=== PATIENT | female | born 1935 | race Caucasian/White ===

== ENCOUNTER 2016-10-26 15:48 | Inpatient (IN) | payer MEDICARE ==
[~2016-10-26] VITALS: Ht 152.4 cm; Wt 52.3 kg
[~2016-10-26 15:48] MED LIST: AMIO200T2 PO; ATEN-57 PO; CAPT50TA2 PO; DICY20TA3 PO; FENT1PAT17 TP; FURO40TA4 PO; ISOS30TA4 PO; LIPA1CAP2 PO; LISI-334 PO; MEPE50TA2 PO; MESA1.2T PO; NIFE20CA PO; NITR0.4T SL; NITR100C62 PO; ONDA4TAB10 PO; OXYC-323 PO; OXYC-328 PO; POTA10TA12 PO; RIVA10TA PO; ROPI0.5T PO; VALIUM10 MG PO; creon PO
--- NOTE | 2016-10-26 16:09 | EKG ---
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
--- NOTE | 2016-10-26 16:11 | PHYS DOC ---
Past Medical History Past Medical History: CAD, Heart Disease, UT, Other Past Surgical History: Cholecystectomy, Hysterectomy, Knee Replacement, Lumbar Laminectomy, Tonsillectomy, Other Additional Past Surgical Histo: HEMORRHOIDECTOMY,SHOULDER,HERNIA, CARDIAC STENTS Alcohol Use: None Drug Use: None Adult General Chief Complaint Chief Complaint: CHEST PAIN HPI HPI Patient is a pleasant 81-year-old female with a history of heart disease prior UT in 2014 with prior stenting history of hypertension hyperlipidemia who presents with chest pain that began about 2 hours prior to arrival. Patient has a history from was described of angina it is episodic in nature primarily in the center of her chest with radiation to the right and left breast to the right and left shoulders bilaterally. It does not make her short of breath but it makes her anxious. She does describe no nausea no vomiting, diarrhea, cough, chills, or URI symptoms. She does say that the pain is better with sublingual nitroglycerin which he took 2 of today to help with her symptoms. There is nothing new about these symptoms other than the fact that is more severe and longer lasting than normal. While at the MRI machine today getting her hip evaluated patient began having another episode. Although she is on oral oxycodone and fentanyl via patch patient is still having 7 of 10 pain although at presentation she seems very sedated with slurred speech secondary to narcotic interventions. Differential diagnosis for chest pain: Pericarditis, myocarditis, endocarditis, pneumothorax, pneumonia, aortic dissection, esophageal spasm, esophagitis, peptic ulcer disease, acute coronary syndrome, mediastinitis, Boerhaave syndrome , musculoskeletal chest wall pain, costochondritis, intercostal strain, rib fracture, pulmonary contusion, pneumonitis, pleural effusion, pericardial effusion, pericardial tamponode, and pleurisy. Considered upon arrival at this point it is likely unstable angina given symptoms occurring at rest and not changed in frequency and duration. Patient EKG, chest x-ray, d-dimer, cardiac enzymes, CBC, CMP, IV fluids, aspirins were given my EMS in route nitrates also given by patient or to arrival. Care physician is Dr. RASHAWN Pool Incidentally patient also had large lesion on her right hip that is concerning is variegated large one to 2 cm with erythema around it but is discolored variegated appearance been present for months. Review of Systems Review of Systems Constitutional: Denies fever or chills [] Eyes: Denies change in visual acuity, redness, or eye pain [] HENT: Denies nasal congestion or sore throat [] Respiratory: Denies cough or shortness of breath [] Cardiovascular: No additional information not addressed in HPI [] GI: Denies abdominal pain, nausea, vomiting, bloody stools or diarrhea [] : Denies dysuria or hematuria [] Musculoskeletal: Denies back pain or joint pain [] Integument: No large lesion black in nature over the right hip. Neurologic: Denies headache, she does complain of generalized weakness Endocrine: Denies polyuria or polydipsia [] Current Medications Current Medications Current Medications Medications (Trade) Dose Ordered Sig/Cha Start Time Stop Time Status Last Admin Dose Admin Fentanyl Citrate (Fentanyl 2ml Vial) 50 mcg PRN Q2HR PRN 10/26/16 16:45 10/27/16 16:44 Nitroglycerin (Nitrostat) 0.4 mg PRN Q5MIN PRN 10/26/16 16:45 10/27/16 16:44 Nitroglycerin/ Dextrose 250 ml @ 3 mls/hr 1X ONCE 10/26/16 16:15 10/30/16 03:34 Ondansetron HCl (Zofran) 4 mg PRN Q8HRS PRN 10/26/16 16:45 10/27/16 16:44 Sodium Chloride 1,000 ml @ 100 mls/hr Q10H 10/26/16 16:43 10/27/16 16:42 Sodium Chloride (Normal Saline Flush) 10 ml QSHIFT PRN 10/26/16 16:15 Allergies Allergies Allergies Coded Allergies Type Severity Reaction Last Updated Verified diphenhydramine Allergy Severe Shortness of Air 10/26/15 Yes NSAIDS (Non-Steroidal Anti-Inflamma Allergy Intermediate All except Feldene 05/31/14 Yes Pentazocine Lactate Allergy Intermediate Blood pressure increase, chest pain, heart races, itching. 05/31/14 Yes Trimethobenzamide HCl Allergy Intermediate Severe muscle spasms 05/31/14 Yes acetaminophen Allergy Intermediate Shallow breathing, slow heart rate, stomach pain 05/31/14 Yes adhesive Allergy Intermediate rash--"will explain." 05/31/14 Yes butorphanol tartrate Allergy Intermediate Hallucinations, PALOMARES, anxiety, rash 05/31/14 Yes carisoprodol Allergy Intermediate Fainting, fast heart rate, light-headed Yes chlorzoxazone Allergy Intermediate Nausea, dizzy, rash, feels like I might pass out 05/31/14 Yes codeine Allergy Intermediate Shallow breathing, vomiting, severe PALOMARES, bradycardia, itching 05/31/14 Yes codeine phosphate Allergy Intermediate Shallow breathing, slow heart rate, stomach pain 05/31/14 Yes cyclobenzaprine HCl Allergy Intermediate Chest pain,PALOMARES, fast heart rate, nervous 05/31/14 Yes erythromycin base Allergy Intermediate Fainting, fast/irreg HR, rash, itiching 05/31/14 Yes hydromorphone HCl Allergy Intermediate Apneic 05/31/14 Yes iodine Allergy Intermediate Itching, skin rash, hives 05/31/14 Yes ketorolac tromethamine Allergy Intermediate Chest pain, sudden severe PALOMARES Yes levofloxacin Allergy Intermediate Severe dizziness, heart races, itching, stomach pain 05/31/14 Yes midazolam HCl Allergy Intermediate Slow heart rate, affects bld pressure, mild rash 05/31/14 Yes morphine Allergy Intermediate apneic 05/31/14 Yes nalbuphine HCl Allergy Intermediate Tachycardia, confusion, hallucinations, nervous 05/31/14 Yes I S O L A T I O N *CONTACT* Allergy Unknown 05/03/16 Yes Physical Exam Physical Exam Constitutional: Patient mildly cachectic although well-developed there is some muscle wasting noted. Patient has poor dentition dry mucous membranes and is slurring her speech likely secondary to narcotics are on board. HENT: Normocephalic, atraumatic, bilateral external ears normal, dry mucous membranes Eyes: PERRLA, EOMI, conjunctiva normal, no discharge. [] Neck: Normal range of motion, no tenderness, supple, no stridor. [] Cardiovascular:Heart rate regular rhythm, no murmur [] Lungs & Thorax: Bilateral breath sounds clear to auscultation [] Abdomen: Bowel sounds normal, soft, no tenderness, no masses, no pulsatile masses. [] Skin: As enlarged 1-2 cm enlarged dark irrigated brownish-black lesions that have mild erythema and induration surrounding them Back: No tenderness, no CVA tenderness. [] Extremities: No tenderness, no cyanosis, no clubbing, ROM intact, no edema. [] Neurologic: Alert and oriented X 3, normal motor function, normal sensory function, no focal deficits noted. [] Psychologic: Affect normal, judgement normal, mood normal. [] Current Patient Data Vital Signs Vital Signs Date Time Temp Pulse Resp B/P (MAP) Pulse Ox O2 Delivery O2 Flow Rate FiO2 10/26/16 15:55 97.5 55 18 108/44 (65) 98 Nasal Cannula 2.0 97.5 Lab Values Laboratory Tests Test 10/26/16 16:25 10/26/16 16:34 10/26/16 17:35 White Blood Count 5.9 x10^3/uL (4.0-11.0) Red Blood Count 4.18 x10^6/uL (3.50-5.40) Hemoglobin 13.1 g/dL (12.0-15.5) Hematocrit 39.7 % (36.0-47.0) Mean Corpuscular Volume 95 fL (79-100) Mean Corpuscular Hemoglobin 31 pg (25-35) Mean Corpuscular Hemoglobin Concent 33 g/dL (31-37) Red Cell Distribution Width 14.5 % (11.5-14.5) Platelet Count 145 x10^3/uL (140-400) Neutrophils (%) (Auto) 65 % (31-73) Lymphocytes (%) (Auto) 20 % (24-48) L Monocytes (%) (Auto) 12 % (0-9) H Eosinophils (%) (Auto) 3 % (0-3) Basophils (%) (Auto) 1 % (0-3) Neutrophils # (Auto) 3.9 x10^3uL (1.8-7.7) Lymphocytes # (Auto) 1.2 x10^3/uL (1.0-4.8) Monocytes # (Auto) 0.7 x10^3/uL (0.0-1.1) Eosinophils # (Auto) 0.1 x10^3/uL (0.0-0.7) Basophils # (Auto) 0.0 x10^3/uL (0.0-0.2) Sodium Level 139 mmol/L (136-145) Potassium Level 4.7 mmol/L (3.5-5.1) Chloride Level 103 mmol/L (98-107) Carbon Dioxide Level 19 mmol/L (21-32) L Anion Gap 17 (6-14) H Blood Urea Nitrogen 163 mg/dL (7-20) H Creatinine 4.8 mg/dL (0.6-1.0) H Estimated GFR (Cockcroft-Gault) 8.8 Glucose Level 94 mg/dL (70-99) Calcium Level 9.1 mg/dL (8.5-10.1) Magnesium Level 2.1 mg/dL (1.8-2.4) Total Bilirubin 0.4 mg/dL (0.2-1.0) Direct Bilirubin 0.1 mg/dL (0.0-0.2) Aspartate Amino Transferase (AST) 25 U/L (15-37) Alanine Aminotransferase (ALT) 29 U/L (14-59) Alkaline Phosphatase 157 U/L (46-116) H Creatine Kinase 49 U/L (26-192) Creatine Kinase MB (Mass) 2.2 ng/mL (0.0-3.6) Creatine Kinase MB Relative Index % (0-4) Troponin I Quantitative < 0.017 ng/mL (0.000-0.055) HQ-Qaz-T-Type Natriuretic Peptide 1252 pg/mL (0-449) H Total Protein 6.9 g/dL (6.4-8.2) Albumin 3.2 g/dL (3.4-5.0) L Lipase 599 U/L (73-393) H POC Troponin I 0.01 ng/ml (<0.08) Urine Collection Type Unknown Urine Color Yellow Urine Clarity Clear Urine pH 5.0 Urine Specific [place] 1.015 Urine Protein Negative mg/dL (NEG-TRACE) Urine Glucose (UA) Negative mg/dL (NEG) Urine Ketones (Stick) Negative mg/dL (NEG) Urine Blood Negative (NEG) Urine Nitrite Negative (NEG) Urine Bilirubin Negative (NEG) Urine Urobilinogen Dipstick 0.2 mg/dL (0.2 mg/dL) Urine Leukocyte Esterase Small (NEG) Urine RBC 1-2 /HPF (0-2) Urine WBC 11-20 /HPF (0-4) Urine Squamous Epithelial Cells Few /LPF Urine Bacteria Few /HPF (0-FEW) Urine Hyaline Casts Occasional /HPF Laboratory Tests 10/26/16 16:25 Laboratory Tests 10/26/16 16:25 EKG EKG [] KG timed 1553 10/26/2016 patient's EKG demonstrated heart rate of 55 sinus bradycardia there is marked movement artifact secondary to find motor and patient the patient has a Q-wave in the inferior leads in V1 and V2 which is not new and old there is also a left ventricular bundle branch block with intraventricular conduction delay noted on old EKGs there is left axis deviation as well. There are no new changes to this EKG. Radiology/Procedures Radiology/Procedures [] [facility] [address] [place] [address] IMAGING REPORT Signed PATIENT: DARIUS SALINAS ACCOUNT: [id number] : 1935 LOCATION: [address] [place] [address] AGE: 80 SEX: F EXAM STATUS: ADM IN ORD. PHYSICIAN: AUSTIN SILVERMAN MD REASON: CHF PROCEDURE: ECHOCARDIOGRAM APPROVED REPORT EXAM: Two-dimensional and M-mode echocardiogram with Doppler and color Doppler. Other Information Quality : Good INDICATION Congestive Heart Failure 2D DIMENSIONS RVDd 2.8 (2.9-3.5cm) Left Atrium(2D) 3.0 (1.6-4.0cm) IVSd 1.0 (0.7-1.1cm) Aortic Root(2D) 1.9 (2.0-3.7cm) LVDd 3.5 (3.9-5.9cm) LVOT Diameter 1.9 (1.8-2.4cm) PWd 0.9 (0.7-1.1cm) LVDs 2.2 (2.5-4.0cm) FS (%) 30.0 % SV 33.3 ml LVEF(%) 60.0 (>50%) Aortic Valve AoV Peak Jose Guadalupe. 155.2cm/s AoV VTI 37.9cm AO Peak GR. 9.6mmHg LVOT Peak Jose Guadalupe. 123.9cm/s AO Mean GR. 5mmHg GOLDY (VMAX) 2.34cm2 GOLDY (VTI) 2.50cm2 AI P 1/2 Time 376ms Mitral Valve MV E Velocity 108.5cm/s MV DECEL TIME 124ms MV A Velocity 95.5cm/s E/A Ratio 1.1 Tricuspid Valve TR P. Velocity 356cm/s RAP ESTIMATE 10mmHg TR Peak Gr. 51mmHg RVSP 61mmHg Pulmonary Vein S1 Velocity 57.6cm/s D2 Velocity 44.7cm/s PVa duration 145msec LEFT VENTRICLE The left ventricle is mildly dilated There is mild concentric left ventricular hypertrophy The left ventricular systolic function is normal and the ejection fraction is within normal range. The Ejection Fraction is 60%. There is mild hypokinesis in the apical inferior wall. Transmitral Doppler flow pattern is Grade II-pseudonormal filling dynamics. Left ventricular diastolic dysfunction RIGHT VENTRICLE The right ventricle is normal size. Mild right ventricular hypertrophy The right ventricular systolic function is normal. ATRIA The left atrium size is dilated The right atrium size is dilated The interatrial septum is intact with no evidence for an atrial septal defect or patent foramen ovale as noted on 2-D or Doppler imaging. AORTIC VALVE The aortic valve is calcified but opens well. Doppler and Color Flow revealed moderate to severe aortic regurgitation. There is no significant aortic valvular stenosis. MITRAL VALVE The mitral valve is normal in structure There is no evidence of mitral valve prolapse. There is no mitral valve stenosis. Doppler and Color-flow revealed mild to moderate mitral regurgitation. TRICUSPID VALVE The tricuspid valve is normal in structure and function. Doppler and Color Flow revealed moderate tricuspid regurgitation. There is moderate to severe pulmonary hypertension. The PA pressure was estimated at 61 mmHg. There is no tricuspid valve stenosis. PULMONIC VALVE The pulmonary valve is normal in structure Doppler and Color Flow revealed mild pulmonic valvular regurgitation. There is no pulmonic valvular stenosis. GREAT VESSELS The aortic root is normal in size. The ascending aorta is normal in size. The IVC is normal in size and collapses >50% with inspiration. PERICARDIAL EFFUSION There is no evidence of significant pericardial effusion. Critical Notification Critical Value: No <Conclusion> The left ventricular systolic function is normal and the ejection fraction is within normal range. The Ejection Fraction is 60%. Transmitral Doppler flow pattern is Grade II-pseudonormal filling dynamics. Left ventricular diastolic dysfunction Mild right ventricular hypertrophy The left atrium size is dilated The right atrium size is dilated Doppler and Color Flow revealed moderate to severe aortic regurgitation. The aortic valve is calcified but opens well. Doppler and Color-flow revealed mild to moderate mitral regurgitation. Doppler and Color Flow revealed moderate tricuspid regurgitation. There is moderate to severe pulmonary hypertension. The PA pressure was estimated at 61 mmHg. Doppler and Color Flow revealed mild pulmonic valvular regurgitation. There is no evidence of significant pericardial effusion. DICTATED and SIGNED BY: AUSTIN SILVERMAN MD DATE: 05/05/16 1426 CC: MILDRED MALHOTRA MD; AUSTIN SILVERMAN MD ~ Course & Med Decision Making Course & Med Decision Making Pertinent Labs and Imaging studies reviewed. (See chart for details) Initial presentation Differential diagnosis for chest pain: Pericarditis, myocarditis, endocarditis, pneumothorax, pneumonia, aortic dissection, esophageal spasm, esophagitis, peptic ulcer disease, acute coronary syndrome, mediastinitis, Boerhaave syndrome, musculoskeletal chest wall pain, costochondritis, intercostal strain, rib fracture, pulmonary contusion, pneumonitis, pleural effusion, pericardial effusion, pericardial tamponode, and pleurisy Disposition also demonstrated a small lesion on her right hip which is very concerning for melanoma. Boat Engine Mechanic note: Internal medicine Boat Engine Mechanic called at of the service 4:30 PM Consult called back at o435 p.m. Discussed the case I presented and they agreed with admission. Time of acceptance for 435 PM ask for inpatient admission cardiology evaluation and consultation. Patient's pain is intermittent and comes and goes patient is mildly hypertensive during her evaluation here in the emergency department although she has fentanyl on which is likely causing her hypotension the nitrates may be doing so. Given her continued discomfort she's been bitten to the hospital under the impression that she has angina. This is chronic for her not a new nature but given her symptoms I wanted to make sure that cardiology was aware of her presence. Also on her findings were a elevated BUN/creatinine a significant value of 4.8 this time I have no old findings to compare this to but I worried that this on top her chest pain is concerning. It is also noted that her pancreas may be inflamed and irritated from some unknown reason perhaps hyperlipidemia, as her lipase is 599 today which would also explain why she has abdominal pain when is in not responsive to nitrates as normal. Her troponin initially on arrival was 0.01 and measured 0.017 which both within normal limits. I believe that an ultrasound of her abdomen would be appropriate to rule out other sources of abdominal catastrophe causing pancreatic tightness like cholelithiasis or cholecystitis. Her LFTs are not elevated white count. I concern also would be possible alcohol consumption although there is no history of acid of alcoholism With a course this patient's evaluation she was comfortable and resting quietly mildly hypotensive responsive to fluids. Denies still concerned that possibly fluid retention with elevated pancreatic enzymes may be the cause of her abdominal pain chest pain she described earlier. Dr. Malhotra this patient approximately 6:10 PM to let him know about the other findings during her course of evaluation and my plan of treatment. I will cancel her diet and keep her NPO and encourage GI valuation. impression: Abdominal pain, likely pancreatitis, chest pain unclear etiology likely angina, hypotension likely secondary to medication reaction. Renal failure Disposition: Admission to the hospital under internal medicine service Dr. RASHAWN Pool with cardiology and GI consultation. Dragon Disclaimer Dragon Disclaimer This electronic medical record was generated, in whole or in part, using a voice recognition dictation system. Departure Departure Impression: Primary Impression: Angina at rest Additional Impressions: Chest pain Melanoma Acute renal failure Pancreatitis Disposition: ADMITTED INPATIENT Admitting Physician: Mildred Malhotra Referrals: MILDRED MALHOTRA MD (PCP) Problem Qualifiers UVALDO BULLOCK MD Oct 26, 2016 16:11
[2016-10-26] MEDS ORDERED: NITROGLYCERIN PREMIX 250 ML IV ONE (16:15)
[2016-10-26] MEDS ORDERED: NITROGLYCERIN SUBLINGUAL 0.4 MG BOTTLE OF 25. SL PRN ×3 (16:15→20:30)
[2016-10-26] MEDS ORDERED: 0.9 % SODIUM CHLORIDE 10 ML DISP.SYRIN. IV PRN (16:15)
[2016-10-26] MEDS ORDERED: IV NORMAL SALINE 1000ML BAG 1,000 ML IV SCH (16:30)
[2016-10-26 16:37] LABS: BASO % 1 % (0-3); EOS % 3 % (0-3); HEMATOCRIT 39.7 % (36.0-47.0); HEMOGLOBIN 13.1 g/dL (12.0-15.5); LYMPH # 1.2 x10^3/uL (1.0-4.8); LYMPH % 20 % (24-48); MEAN CORPUSCULAR HEMOGLOBIN 31 pg (25-35); MEAN CORPUSCULAR HGB CONC 33 g/dL (31-37); MEAN CORPUSCULAR VOLUME 95 fL (79-100); MONO % 12 % (0-9); NEUT % 65 % (31-73); PLATELET COUNT 145 x10^3/uL (140-400); RED BLOOD COUNT 4.18 x10^6/uL (3.50-5.40); RED CELL DISTRIBUTION WIDTH 14.5 % (11.5-14.5); WHITE BLOOD COUNT 5.9 x10^3/uL (4.0-11.0)
[2016-10-26] MEDS ORDERED: fentaNYL PF VIAL 100 MCG/2 ML VIAL IV PRN (16:45)
[2016-10-26] MEDS ORDERED: ONDANSETRON PF 4 MG/2 ML VIAL. IV PRN (16:45)
--- NOTE | 2016-10-26 16:54 | RAD ---
Indication weakness shortness of breath chest pain. A single view of the chest was obtained. Comparison is made to an examination 05/08/2016. There are chronic interstitial changes. Heart size is unchanged. There is no gross congestive heart failure. A focal process is not seen. Significant pleural fluid is not present and there is no pneumothorax. A left Port-A-Cath is noted. There has not been a significant change compared to the previous exam. IMPRESSION: Chronic changes. No acute finding. No significant change
[2016-10-26 16:57] LABS: CALCIUM 9.1 mg/dL (8.5-10.1); CREATININE 4.8 mg/dL (0.6-1.0); GFR 8.8; POTASSIUM 4.7 mmol/L (3.5-5.1)
[2016-10-26 17:01] LABS: ALBUMIN 3.2 g/dL (3.4-5.0); DIRECT BILIRUBIN 0.1 mg/dL (0.0-0.2); MAGNESIUM 2.1 mg/dL (1.8-2.4); TOTAL BILIRUBIN 0.4 mg/dL (0.2-1.0); TOTAL PROTEIN 6.9 g/dL (6.4-8.2)
[2016-10-26 17:08] LABS: CKMB MASS 2.2 ng/mL (0.0-3.6); CREATINE KINASE 49 U/L (26-192)
--- NOTE | 2016-10-26 17:09 | ACF ---
Admission Forms Criteria ANGINA Clinical Indications for Admission to Inpatient Care (Place 'X' for any and all applicable criteria): Admission is indicated for suspected angina (e.g, chest pain pattern, angina- equivalent symptom, or other finding suggesting unstable angina) with ANY ONE of the following(1)(2)(3)(4)(5): [X]I. Angina needing acute intervention as indicated by ALL of the following ( 11)(12): [X]a) Unstable angina is present as indicated by angina that is ANY ONE of the following: [ ]i) New onset [ ]ii) Nocturnal [X]iii) Prolonged at rest [ ]iv) Progressive [X]b) Angina warrants acute intervention as indicated by ANY ONE of the following: [ ]i) Recurrent angina (e.g, not responding as previously to treatment) [ ]ii) Angina at rest or with low-level activities despite initial medical therapy [ ]iii) New or presumably new ST-segment depression on ECG [ ]iv) Signs or symptoms of heart failure (eg, dyspnea, pulmonary edema) [ ]v) New or worsening mitral regurgitation [ ]vi) Hemodynamic instability [ ]vii) Dangerous arrhythmia (eg, sustained ventricular tachycardia) [ ]viii) History of percutaneous coronary intervention within 6 months [ ]ix) History of coronary artery bypass graft surgery [X]x) ENRICO risk score of 2 or greater[A] [ ]xi) History of Diabetes(14) [ ]xii) High-risk cardiac ischemia findings on noninvasive testing (e.g, echocardiogram, treadmill testing, nuclear scan) [ ]xiii) Chronic renal insufficiency (ie, estimated GFR less than 60 mL/min/1.732m) [ ]xiv) Left ventricular ejection fraction less than 40% [ ]II. Evidence of MA (e.g, cardiac biomarkers positive, ST-segment elevation on ECG). Also use Myocardial Infarction. Extended stay beyond goal length of stay may be needed for (1)(26): [ ]a) Intravascular procedural complications such as acute vessel closure, stent malposition, or vessel dissection(27) [ ]b) Extravascular procedural complications such as retroperitoneal hematoma, pericardial effusion, or cardiac tamponade [ ]c) Entry site complications causing bleeding, hematoma, or distal ischemia and requiring ongoing monitoring, surgical repair, or surgical thrombectomy(28) [ ]d) Heart failure [ ]e) Dangerous arrhythmia [ ]f) Hemodynamic instability with persisting symptoms after intensive medical management, or recurring severe prolonged symptoms [ ]g) Postprocedural myocardial infarction or acute renal failure The original [facility] content created by [facility] has been revised. The portions of the content which have been revised are identified through the use of italic text or in bold, and [facility] has neither reviewed nor approved the modified material. All other unmodified content is copyright [facility]. Please see references footnoted in the original [facility] edition 2016 Admission Criteria Met?: Yes YONAS HIGH Oct 26, 2016 17:09
[2016-10-26 17:43] LABS: BILIRUBIN,URINE NEGATIVE (NEG); GLUCOSE,URINE NEGATIVE (NEG); NITRITE,URINE NEGATIVE (NEG); PROTEIN,URINE NEGATIVE (NEG-TRACE); UROBILINOGEN,URINE 0.2 mg/dL (0.2 mg/dL)
[2016-10-26 17:56] LABS: BACTERIA,URINE FEW /HPF (0-FEW); SQUAMOUS EPITHELIAL CELL,UR FEW /LPF
[2016-10-26] MEDS: IV NORMAL SALINE 1000ML BAG 1,000 ML IV SCH (18:08)
[2016-10-26 19:00] VITALS: BP 110/46
--- NOTE | 2016-10-26 19:19 | RAD ---
INDICATION: pt c/o chest pain today, elevated lipase COMPARISON: None. TECHNIQUE: Grayscale and color ultrasound images obtained through the abdomen. FINDINGS: Aorta/IVC: Incomplete visualization. Pancreas: Not well seen Liver: Mild prominence of intrahepatic bile ducts Gallbladder: Removed Common Bile Duct: 11 mm Right Kidney: No hydronephrosis. IMPRESSION: Postcholecystectomy with prominent intrahepatic and extrahepatic bile ducts. This is commonly seen postcholecystectomy but would correlate with symptoms and lab markers to ensure there is not a distal obstructive process. Electronically signed by: Nahun Davenport MD (10/26/2016 7:16 PM)
[2016-10-26] MEDS ORDERED: ISOS60TA2 PO (20:00)
[2016-10-26] MEDS ORDERED: RIVA20TA2 PO (20:00)
[2016-10-26] MEDS ORDERED: FURO-69 PO (20:02)
[2016-10-26] MEDS ORDERED: AMIO200T2 PO (20:23)
[2016-10-26] MEDS ORDERED: MEPERIDINE HCL 50 MG PO PRN (20:30)
[2016-10-26] MEDS: rOPINIRole 0.25 MG TABLET. PO SCH (21:04)
[2016-10-26] MEDS: IV 1/2 NORMAL SALINE 1,000 ML IV SCH (21:05)
[2016-10-26] MEDS: ATENOLOL 25 MG TABLET. PO SCH (21:05)
[2016-10-26 23:00] VITALS: BP 87/36
[2016-10-26 23:50] VITALS: BP 108/43
[2016-10-27] MEDS: IV NORMAL SALINE 1000ML BAG 1,000 ML IV SCH ×2 (02:43→12:40)
[2016-10-27 03:43] VITALS: BP 98/30
[2016-10-27 07:55] VITALS: BP 104/40
[2016-10-27] MEDS: LISINOPRIL 10 MG TABLET PO SCH (09:00)
[2016-10-27] MEDS: ISOSORBIDE MONONITRATE ER 30 MG TAB.ER.24H PO SCH (09:00)
[2016-10-27] MEDS ORDERED: fentaNYL 50MCG/HR PATCH 1 PATCH PATCH.TD72 TD SCH (09:00)
[2016-10-27] MEDS: ATENOLOL 25 MG TABLET. PO SCH ×2 (09:00→20:35)
[2016-10-27] MEDS: AMIODARONE HCL 200 MG TABLET. PO SCH ×2 (09:03→09:19)
[2016-10-27] MEDS: oxyCODONE/APAP 10/325 1 TAB TABLET PO PRN ×3 (09:19→20:37)
--- NOTE | 2016-10-27 10:08 | PDOC ---
GENERAL General: see dictated H&P. Problems: VITAL SIGNS Vital Signs: Vital Signs Date Time Temp Pulse Resp B/P (MAP) Pulse Ox O2 Delivery O2 Flow Rate FiO2 10/27/16 09:19 51 104/40 10/27/16 09:19 94 Nasal Cannula 2.0 10/27/16 07:55 97.7 18 97.7 I & O I & O Intake and Output 10/27/16 07:00 Intake Total 1658 ml Balance 1658 ml Intake Oral 0 ml IV Total 1658 ml # Voids 1 ALLERGIES Allergies: Allergies Coded Allergies Type Severity Reaction Last Updated Verified diphenhydramine Allergy Severe Shortness of Air 10/26/15 Yes NSAIDS (Non-Steroidal Anti-Inflamma Allergy Intermediate All except Feldene 05/31/14 Yes Pentazocine Lactate Allergy Intermediate Blood pressure increase, chest pain, heart races, itching. 05/31/14 Yes Trimethobenzamide HCl Allergy Intermediate Severe muscle spasms 05/31/14 Yes acetaminophen Allergy Intermediate Shallow breathing, slow heart rate, stomach pain 05/31/14 Yes adhesive Allergy Intermediate rash--"will explain." 05/31/14 Yes butorphanol tartrate Allergy Intermediate Hallucinations, PALOMARES, anxiety, rash 05/31/14 Yes carisoprodol Allergy Intermediate Fainting, fast heart rate, light-headed Yes chlorzoxazone Allergy Intermediate Nausea, dizzy, rash, feels like I might pass out 05/31/14 Yes codeine Allergy Intermediate Shallow breathing, vomiting, severe PALOMARES, bradycardia, itching 05/31/14 Yes codeine phosphate Allergy Intermediate Shallow breathing, slow heart rate, stomach pain 05/31/14 Yes cyclobenzaprine HCl Allergy Intermediate Chest pain,PALOMARES, fast heart rate, nervous 05/31/14 Yes erythromycin base Allergy Intermediate Fainting, fast/irreg HR, rash, itiching 05/31/14 Yes hydromorphone HCl Allergy Intermediate Apneic 05/31/14 Yes iodine Allergy Intermediate Itching, skin rash, hives 05/31/14 Yes ketorolac tromethamine Allergy Intermediate Chest pain, sudden severe PALOMARES Yes levofloxacin Allergy Intermediate Severe dizziness, heart races, itching, stomach pain 05/31/14 Yes midazolam HCl Allergy Intermediate Slow heart rate, affects bld pressure, mild rash 05/31/14 Yes morphine Allergy Intermediate apneic 05/31/14 Yes nalbuphine HCl Allergy Intermediate Tachycardia, confusion, hallucinations, nervous 05/31/14 Yes I S O L A T I O N *CONTACT* Allergy Unknown 05/03/16 Yes MEDS Medications: Current Medications Medications (Trade) Dose Ordered Sig/Cha Start Time Stop Time Status Last Admin Dose Admin Amiodarone HCl (Cordarone) 200 mg DAILY 10/27/16 09:00 10/27/16 09:19 200 MG Atenolol (Tenormin) 25 mg BID 10/26/16 21:00 10/26/16 21:05 25 MG Fentanyl (Duragesic 50mcg/ Hr Patch) 1 patch Q3DAYS 10/29/16 09:00 Fentanyl Citrate (Fentanyl 2ml Vial) 50 mcg PRN Q2HR PRN 10/26/16 16:45 10/27/16 16:44 Isosorbide Mononitrate (Imdur) 30 mg DAILY 10/27/16 09:00 Lisinopril (Prinivil) 10 mg DAILY 10/27/16 09:00 Nitroglycerin (Nitrostat) 0.4 mg PRN Q5MIN PRN 10/26/16 20:30 Nitroglycerin/ Dextrose 250 ml @ 3 mls/hr 1X ONCE 10/26/16 16:15 10/30/16 03:34 Non-Formulary Medication 50 mg TID PRN 10/26/16 20:30 UNV Ondansetron HCl (Zofran Odt) 4 mg PRN Q6HRS PRN 10/26/16 20:30 Ondansetron HCl (Zofran) 4 mg PRN Q8HRS PRN 10/26/16 16:45 10/27/16 16:44 Oxycodone/ Acetaminophen (Percocet 10/325) 1 tab PRN QID PRN 10/26/16 20:30 10/27/16 09:19 1 TAB Rivaroxaban (Xarelto) 15 mg DAILYWSUP 10/27/16 17:00 UNV Ropinirole HCl (Requip) 0.25 mg QHS 10/26/16 21:00 10/26/16 21:04 0.25 MG Sodium Chloride 1,000 ml @ 50 mls/hr Q20H 10/26/16 20:30 10/26/16 21:05 50 MLS/HR Sodium Chloride (Normal Saline Flush) 10 ml QSHIFT PRN 10/26/16 16:15 LAB Lab: Laboratory Tests Test 10/26/16 16:25 10/26/16 16:34 10/26/16 17:35 10/26/16 23:58 White Blood Count 5.9 x10^3/uL (4.0-11.0) Red Blood Count 4.18 x10^6/uL (3.50-5.40) Hemoglobin 13.1 g/dL (12.0-15.5) Hematocrit 39.7 % (36.0-47.0) Mean Corpuscular Volume 95 fL (79-100) Mean Corpuscular Hemoglobin 31 pg (25-35) Mean Corpuscular Hemoglobin Concent 33 g/dL (31-37) Red Cell Distribution Width 14.5 % (11.5-14.5) Platelet Count 145 x10^3/uL (140-400) Neutrophils (%) (Auto) 65 % (31-73) Lymphocytes (%) (Auto) 20 % (24-48) Monocytes (%) (Auto) 12 % (0-9) Eosinophils (%) (Auto) 3 % (0-3) Basophils (%) (Auto) 1 % (0-3) Neutrophils # (Auto) 3.9 x10^3uL (1.8-7.7) Lymphocytes # (Auto) 1.2 x10^3/uL (1.0-4.8) Monocytes # (Auto) 0.7 x10^3/uL (0.0-1.1) Eosinophils # (Auto) 0.1 x10^3/uL (0.0-0.7) Basophils # (Auto) 0.0 x10^3/uL (0.0-0.2) Sodium Level 139 mmol/L (136-145) Potassium Level 4.7 mmol/L (3.5-5.1) Chloride Level 103 mmol/L (98-107) Carbon Dioxide Level 19 mmol/L (21-32) Anion Gap 17 (6-14) Blood Urea Nitrogen 163 mg/dL (7-20) Creatinine 4.8 mg/dL (0.6-1.0) Estimated GFR (Cockcroft-Gault) 8.8 Glucose Level 94 mg/dL (70-99) Calcium Level 9.1 mg/dL (8.5-10.1) Magnesium Level 2.1 mg/dL (1.8-2.4) Total Bilirubin 0.4 mg/dL (0.2-1.0) Direct Bilirubin 0.1 mg/dL (0.0-0.2) Aspartate Amino Transf (AST/SGOT) 25 U/L (15-37) Alanine Aminotransferase (ALT/SGPT) 29 U/L (14-59) Alkaline Phosphatase 157 U/L (46-116) Creatine Kinase 49 U/L (26-192) Creatine Kinase MB (Mass) 2.2 ng/mL (0.0-3.6) Creatine Kinase MB Relative Index % (0-4) Troponin I Quantitative < 0.017 ng/mL (0.000-0.055) < 0.017 ng/mL (0.000-0.055) [id number]-Type Natriuretic Peptide 1252 pg/mL (0-449) Total Protein 6.9 g/dL (6.4-8.2) Albumin 3.2 g/dL (3.4-5.0) Lipase 599 U/L (73-393) Bedside Troponin I 0.01 ng/ml (<0.08) Urine Collection Type Unknown Urine Color Yellow Urine Clarity Clear Urine pH 5.0 Urine Specific [place] 1.015 Urine Protein Negative mg/dL (NEG-TRACE) Urine Glucose (UA) Negative mg/dL (NEG) Urine Ketones (Stick) Negative mg/dL (NEG) Urine Blood Negative (NEG) Urine Nitrite Negative (NEG) Urine Bilirubin Negative (NEG) Urine Urobilinogen Dipstick 0.2 mg/dL (0.2 mg/dL) Urine Leukocyte Esterase Small (NEG) Urine RBC 1-2 /HPF (0-2) Urine WBC 11-20 /HPF (0-4) Urine Squamous Epithelial Cells Few /LPF Urine Bacteria Few /HPF (0-FEW) Urine Hyaline Casts Occasional /HPF Test 10/27/16 04:50 Troponin I Quantitative < 0.017 ng/mL (0.000-0.055) MILDRED CLAYTON MD Oct 27, 2016 10:08
[2016-10-27 10:31] LABS: CALCIUM 8.4 mg/dL (8.5-10.1); CREATININE 3.7 mg/dL (0.6-1.0); GFR 11.8; POTASSIUM 4.1 mmol/L (3.5-5.1)
[2016-10-27 10:45] VITALS: BP 91/31
--- NOTE | 2016-10-27 11:37 | PDOC ---
GENERAL General: see dictated H&P. Problems: VITAL SIGNS Vital Signs: Vital Signs Date Time Temp Pulse Resp B/P (MAP) Pulse Ox O2 Delivery O2 Flow Rate FiO2 10/27/16 10:45 97.5 54 18 91/31 (51) 95 Room Air 97.5 10/27/16 09:19 2.0 I & O I & O Intake and Output 10/27/16 07:00 Intake Total 1658 ml Balance 1658 ml Intake Oral 0 ml IV Total 1658 ml # Voids 1 ALLERGIES Allergies: Allergies Coded Allergies Type Severity Reaction Last Updated Verified diphenhydramine Allergy Severe Shortness of Air 10/26/15 Yes NSAIDS (Non-Steroidal Anti-Inflamma Allergy Intermediate All except Feldene 05/31/14 Yes Pentazocine Lactate Allergy Intermediate Blood pressure increase, chest pain, heart races, itching. 05/31/14 Yes Trimethobenzamide HCl Allergy Intermediate Severe muscle spasms 05/31/14 Yes acetaminophen Allergy Intermediate Shallow breathing, slow heart rate, stomach pain 05/31/14 Yes adhesive Allergy Intermediate rash--"will explain." 05/31/14 Yes butorphanol tartrate Allergy Intermediate Hallucinations, PALOMARES, anxiety, rash 05/31/14 Yes carisoprodol Allergy Intermediate Fainting, fast heart rate, light-headed Yes chlorzoxazone Allergy Intermediate Nausea, dizzy, rash, feels like I might pass out 05/31/14 Yes codeine Allergy Intermediate Shallow breathing, vomiting, severe PALOMARES, bradycardia, itching 05/31/14 Yes codeine phosphate Allergy Intermediate Shallow breathing, slow heart rate, stomach pain 05/31/14 Yes cyclobenzaprine HCl Allergy Intermediate Chest pain,PALOMARES, fast heart rate, nervous 05/31/14 Yes erythromycin base Allergy Intermediate Fainting, fast/irreg HR, rash, itiching 05/31/14 Yes hydromorphone HCl Allergy Intermediate Apneic 05/31/14 Yes iodine Allergy Intermediate Itching, skin rash, hives 05/31/14 Yes ketorolac tromethamine Allergy Intermediate Chest pain, sudden severe PALOMARES Yes levofloxacin Allergy Intermediate Severe dizziness, heart races, itching, stomach pain 05/31/14 Yes midazolam HCl Allergy Intermediate Slow heart rate, affects bld pressure, mild rash 05/31/14 Yes morphine Allergy Intermediate apneic 05/31/14 Yes nalbuphine HCl Allergy Intermediate Tachycardia, confusion, hallucinations, nervous 05/31/14 Yes I S O L A T I O N *CONTACT* Allergy Unknown 05/03/16 Yes MEDS Medications: Current Medications Medications (Trade) Dose Ordered Sig/Cha Start Time Stop Time Status Last Admin Dose Admin Amiodarone HCl (Cordarone) 200 mg DAILY 10/27/16 09:00 10/27/16 09:19 200 MG Apixaban (Eliquis) 2.5 mg BID 10/27/16 11:00 Atenolol (Tenormin) 25 mg BID 10/26/16 21:00 10/26/16 21:05 25 MG Fentanyl (Duragesic 50mcg/ Hr Patch) 1 patch Q3DAYS 10/29/16 09:00 Fentanyl Citrate (Fentanyl 2ml Vial) 50 mcg PRN Q2HR PRN 10/26/16 16:45 10/27/16 16:44 Info (Anti-Coagulation Monitoring By Pharmacy) 1 each PRN DAILY PRN 10/27/16 10:45 Isosorbide Mononitrate (Imdur) 30 mg DAILY 10/27/16 09:00 Lisinopril (Prinivil) 10 mg DAILY 10/27/16 09:00 Nitroglycerin (Nitrostat) 0.4 mg PRN Q5MIN PRN 10/26/16 20:30 Nitroglycerin/ Dextrose 250 ml @ 3 mls/hr 1X ONCE 10/26/16 16:15 10/30/16 03:34 Non-Formulary Medication 50 mg TID PRN 10/26/16 20:30 UNV Ondansetron HCl (Zofran Odt) 4 mg PRN Q6HRS PRN 10/26/16 20:30 Ondansetron HCl (Zofran) 4 mg PRN Q8HRS PRN 10/26/16 16:45 10/27/16 16:44 Oxycodone/ Acetaminophen (Percocet 10/325) 1 tab PRN QID PRN 10/26/16 20:30 10/27/16 09:19 1 TAB Rivaroxaban (Xarelto) 15 mg DAILYWSUP 10/27/16 17:00 UNV Ropinirole HCl (Requip) 0.25 mg QHS 10/26/16 21:00 10/26/16 21:04 0.25 MG Sodium Chloride 1,000 ml @ 50 mls/hr Q20H 10/26/16 20:30 10/26/16 21:05 50 MLS/HR Sodium Chloride (Normal Saline Flush) 10 ml QSHIFT PRN 10/26/16 16:15 LAB Lab: Laboratory Tests Test 10/26/16 16:25 10/26/16 16:34 10/26/16 17:35 10/26/16 23:58 White Blood Count 5.9 x10^3/uL (4.0-11.0) Red Blood Count 4.18 x10^6/uL (3.50-5.40) Hemoglobin 13.1 g/dL (12.0-15.5) Hematocrit 39.7 % (36.0-47.0) Mean Corpuscular Volume 95 fL (79-100) Mean Corpuscular Hemoglobin 31 pg (25-35) Mean Corpuscular Hemoglobin Concent 33 g/dL (31-37) Red Cell Distribution Width 14.5 % (11.5-14.5) Platelet Count 145 x10^3/uL (140-400) Neutrophils (%) (Auto) 65 % (31-73) Lymphocytes (%) (Auto) 20 % (24-48) Monocytes (%) (Auto) 12 % (0-9) Eosinophils (%) (Auto) 3 % (0-3) Basophils (%) (Auto) 1 % (0-3) Neutrophils # (Auto) 3.9 x10^3uL (1.8-7.7) Lymphocytes # (Auto) 1.2 x10^3/uL (1.0-4.8) Monocytes # (Auto) 0.7 x10^3/uL (0.0-1.1) Eosinophils # (Auto) 0.1 x10^3/uL (0.0-0.7) Basophils # (Auto) 0.0 x10^3/uL (0.0-0.2) Sodium Level 139 mmol/L (136-145) Potassium Level 4.7 mmol/L (3.5-5.1) Chloride Level 103 mmol/L (98-107) Carbon Dioxide Level 19 mmol/L (21-32) Anion Gap 17 (6-14) Blood Urea Nitrogen 163 mg/dL (7-20) Creatinine 4.8 mg/dL (0.6-1.0) Estimated GFR (Cockcroft-Gault) 8.8 Glucose Level 94 mg/dL (70-99) Calcium Level 9.1 mg/dL (8.5-10.1) Magnesium Level 2.1 mg/dL (1.8-2.4) Total Bilirubin 0.4 mg/dL (0.2-1.0) Direct Bilirubin 0.1 mg/dL (0.0-0.2) Aspartate Amino Transf (AST/SGOT) 25 U/L (15-37) Alanine Aminotransferase (ALT/SGPT) 29 U/L (14-59) Alkaline Phosphatase 157 U/L (46-116) Creatine Kinase 49 U/L (26-192) Creatine Kinase MB (Mass) 2.2 ng/mL (0.0-3.6) Creatine Kinase MB Relative Index % (0-4) Troponin I Quantitative < 0.017 ng/mL (0.000-0.055) < 0.017 ng/mL (0.000-0.055) TN-Cli-P-Type Natriuretic Peptide 1252 pg/mL (0-449) Total Protein 6.9 g/dL (6.4-8.2) Albumin 3.2 g/dL (3.4-5.0) Lipase 599 U/L (73-393) Bedside Troponin I 0.01 ng/ml (<0.08) Urine Collection Type Unknown Urine Color Yellow Urine Clarity Clear Urine pH 5.0 Urine Specific [place] 1.015 Urine Protein Negative mg/dL (NEG-TRACE) Urine Glucose (UA) Negative mg/dL (NEG) Urine Ketones (Stick) Negative mg/dL (NEG) Urine Blood Negative (NEG) Urine Nitrite Negative (NEG) Urine Bilirubin Negative (NEG) Urine Urobilinogen Dipstick 0.2 mg/dL (0.2 mg/dL) Urine Leukocyte Esterase Small (NEG) Urine RBC 1-2 /HPF (0-2) Urine WBC 11-20 /HPF (0-4) Urine Squamous Epithelial Cells Few /LPF Urine Bacteria Few /HPF (0-FEW) Urine Hyaline Casts Occasional /HPF Test 10/27/16 04:50 Erythrocyte Sedimentation Rate 7 (0-25) Sodium Level 142 mmol/L (136-145) Potassium Level 4.1 mmol/L (3.5-5.1) Chloride Level 110 mmol/L (98-107) Carbon Dioxide Level 20 mmol/L (21-32) Anion Gap 12 (6-14) Blood Urea Nitrogen 142 mg/dL (7-20) Creatinine 3.7 mg/dL (0.6-1.0) Estimated GFR (Cockcroft-Gault) 11.8 Glucose Level 101 mg/dL (70-99) Calcium Level 8.4 mg/dL (8.5-10.1) Troponin I Quantitative < 0.017 ng/mL (0.000-0.055) MILDRED CLAYTON MD Oct 27, 2016 11:37
--- NOTE | 2016-10-27 11:46 | RAD ---
Indication: Pressure ulcer on the outside of the right hip. Time of exam 10:26 AM 2 views of the right hip were obtained. Femoral acetabular alignment is normal. The femoral head and neck are intact. No fractures are seen. There are soft tissue calcifications noted along the right hip and pelvis. No definite soft tissue gas is seen. No bony destructive changes are identified. Impression: No acute abnormality is detected.
[2016-10-27] MEDS: APIXABAN 2.5 MG TABLET. PO SCH ×2 (12:46→20:37)
[2016-10-27 14:45] VITALS: BP 104/33
[2016-10-27] MEDS: IV 1/2 NORMAL SALINE 1,000 ML IV SCH (15:38)
[2016-10-27] MEDS ORDERED: RIVAROXABAN 15 MG TABLET. PO SCH (17:00)
[2016-10-27 19:00] VITALS: BP 128/45
[2016-10-27] MEDS: rOPINIRole 0.25 MG TABLET. PO SCH (20:37)
[2016-10-27 23:00] VITALS: BP 82/41
[2016-10-28 03:00] VITALS: BP 93/40
[2016-10-28 07:50] VITALS: BP 148/61
[2016-10-28] MEDS: ATENOLOL 25 MG TABLET. PO SCH ×2 (09:00→20:45)
[2016-10-28] MEDS: LISINOPRIL 10 MG TABLET PO SCH (09:00)
[2016-10-28] MEDS: APIXABAN 2.5 MG TABLET. PO SCH ×2 (09:05→20:46)
[2016-10-28] MEDS: ISOSORBIDE MONONITRATE ER 30 MG TAB.ER.24H PO SCH (09:07)
[2016-10-28] MEDS: AMIODARONE HCL 200 MG TABLET. PO SCH (09:12)
[2016-10-28] MEDS: IV 1/2 NORMAL SALINE 1,000 ML IV SCH (09:15)
[2016-10-28] MEDS: ONDANSETRON ODT 4 MG TAB.RAPDIS. PO PRN (10:30)
[2016-10-28 10:50] VITALS: BP 96/48
[2016-10-28 10:50] LABS: CALCIUM 8.7 mg/dL (8.5-10.1); POTASSIUM 4.6 mmol/L (3.5-5.1)
--- NOTE | 2016-10-28 11:14 | PDOC ---
GENERAL General: vss and afebrile. awake and alert. complains of right sided chest pain and into right flank area this am. abdomen soft and non tender with lipase down to normal and will restart feeding. renal function improved with BUN down to 80 and creatinine down to 2.0. continue ivf's. Problems: VITAL SIGNS Vital Signs: Vital Signs Date Time Temp Pulse Resp B/P (MAP) Pulse Ox O2 Delivery O2 Flow Rate FiO2 10/28/16 09:12 63 148/61 10/28/16 07:50 97.5 18 98 Room Air 97.5 10/27/16 21:35 2.0 I & O I & O Intake and Output 10/28/16 07:00 Intake Total 658 ml Output Total 1200 ml Balance -542 ml Intake Oral 0 ml IV Total 658 ml Output Urine Total 1200 ml # Voids 2 ALLERGIES Allergies: Allergies Coded Allergies Type Severity Reaction Last Updated Verified diphenhydramine Allergy Severe Shortness of Air 10/26/15 Yes NSAIDS (Non-Steroidal Anti-Inflamma Allergy Intermediate All except Feldene 05/31/14 Yes Pentazocine Lactate Allergy Intermediate Blood pressure increase, chest pain, heart races, itching. 05/31/14 Yes Trimethobenzamide HCl Allergy Intermediate Severe muscle spasms 05/31/14 Yes acetaminophen Allergy Intermediate Shallow breathing, slow heart rate, stomach pain 05/31/14 Yes adhesive Allergy Intermediate rash--"will explain." 05/31/14 Yes butorphanol tartrate Allergy Intermediate Hallucinations, PALOMARES, anxiety, rash 05/31/14 Yes carisoprodol Allergy Intermediate Fainting, fast heart rate, light-headed Yes chlorzoxazone Allergy Intermediate Nausea, dizzy, rash, feels like I might pass out 05/31/14 Yes codeine Allergy Intermediate Shallow breathing, vomiting, severe PALOMARES, bradycardia, itching 05/31/14 Yes codeine phosphate Allergy Intermediate Shallow breathing, slow heart rate, stomach pain 05/31/14 Yes cyclobenzaprine HCl Allergy Intermediate Chest pain,PALOMARES, fast heart rate, nervous 05/31/14 Yes erythromycin base Allergy Intermediate Fainting, fast/irreg HR, rash, itiching 05/31/14 Yes hydromorphone HCl Allergy Intermediate Apneic 05/31/14 Yes iodine Allergy Intermediate Itching, skin rash, hives 05/31/14 Yes ketorolac tromethamine Allergy Intermediate Chest pain, sudden severe PALOMARES Yes levofloxacin Allergy Intermediate Severe dizziness, heart races, itching, stomach pain 05/31/14 Yes midazolam HCl Allergy Intermediate Slow heart rate, affects bld pressure, mild rash 05/31/14 Yes morphine Allergy Intermediate apneic 05/31/14 Yes nalbuphine HCl Allergy Intermediate Tachycardia, confusion, hallucinations, nervous 05/31/14 Yes I S O L A T I O N *CONTACT* Allergy Unknown 05/03/16 Yes MEDS Medications: Current Medications Medications (Trade) Dose Ordered Sig/Cha Start Time Stop Time Status Last Admin Dose Admin Amiodarone HCl (Cordarone) 200 mg DAILY 10/27/16 09:00 10/28/16 09:12 200 MG Apixaban (Eliquis) 2.5 mg BID 10/27/16 11:00 10/28/16 09:05 2.5 MG Atenolol (Tenormin) 25 mg BID 10/26/16 21:00 10/26/16 21:05 25 MG Fentanyl (Duragesic 50mcg/ Hr Patch) 1 patch Q3DAYS 10/29/16 09:00 Fentanyl Citrate (Fentanyl 2ml Vial) 50 mcg PRN Q2HR PRN 10/26/16 16:45 10/27/16 16:44 DC Info (Anti-Coagulation Monitoring By Pharmacy) 1 each PRN DAILY PRN 10/27/16 10:45 Isosorbide Mononitrate (Imdur) 30 mg DAILY 10/27/16 09:00 10/28/16 09:07 30 MG Lisinopril (Prinivil) 10 mg DAILY 10/27/16 09:00 Nitroglycerin (Nitrostat) 0.4 mg PRN Q5MIN PRN 10/26/16 20:30 Nitroglycerin/ Dextrose 250 ml @ 3 mls/hr 1X ONCE 10/26/16 16:15 10/30/16 03:34 Non-Formulary Medication 50 mg TID PRN 10/26/16 20:30 UNV Ondansetron HCl (Zofran Odt) 4 mg PRN Q6HRS PRN 10/26/16 20:30 10/28/16 10:30 4 MG Ondansetron HCl (Zofran) 4 mg PRN Q8HRS PRN 10/26/16 16:45 10/27/16 16:44 DC Oxycodone/ Acetaminophen (Percocet 10/325) 1 tab PRN QID PRN 10/26/16 20:30 10/27/16 20:37 1 TAB Rivaroxaban (Xarelto) 15 mg DAILYWSUP 10/27/16 17:00 UNV Ropinirole HCl (Requip) 0.25 mg QHS 10/26/16 21:00 10/27/16 20:37 0.25 MG Sodium Chloride 1,000 ml @ 50 mls/hr Q20H 10/26/16 20:30 10/28/16 09:15 50 MLS/HR Sodium Chloride (Normal Saline Flush) 10 ml QSHIFT PRN 10/26/16 16:15 LAB Lab: Laboratory Tests Test 10/28/16 10:28 Sodium Level 145 mmol/L (136-145) Potassium Level 4.6 mmol/L (3.5-5.1) Chloride Level 113 mmol/L (98-107) Carbon Dioxide Level 21 mmol/L (21-32) Anion Gap 11 (6-14) Blood Urea Nitrogen 83 mg/dL (7-20) Creatinine 2.0 mg/dL (0.6-1.0) Estimated GFR (Cockcroft-Gault) 24.0 Glucose Level 84 mg/dL (70-99) Calcium Level 8.7 mg/dL (8.5-10.1) Lipase 321 U/L (73-393) MILDRED CLAYTON MD Oct 28, 2016 11:14
[2016-10-28 14:30] VITALS: BP 140/56
--- NOTE | 2016-10-28 15:05 | HP ---
ADMIT DATE: CHIEF COMPLAINT AND HISTORY OF PRESENT ILLNESS: This 81-year-old white female was at an MRI center getting an MRI on her right hip when she developed chest pain with shortness of breath and nausea, was unresponsive to nitroglycerin, and she was brought to the Emergency Room where she was found to be having pancreatitis with an elevated lipase and markedly elevated kidney function with a BUN in the 160 range and creatinine of approximately 4.8. She was admitted for this constellation along with the chest pain, which was felt probably more likely due to the pancreatitis, which she has not had prior. PAST MEDICAL HISTORY: Remarkable for 3-vessel coronary artery disease. She has had a prior LA. She has COPD. She has chronic pain due to reflex sympathetic dystrophy. PAST SURGICAL HISTORY: She has had a prior cholecystectomy, hysterectomy, knee replacement, lumbar laminectomy, tonsillectomy, hemorrhoidectomy, shoulder surgery, hernia surgeries, has had a prior cardiac stenting. MEDICATIONS: Brought with the patient, listed on the computer and have been addressed. ALLERGIES: SHE HAS MULTIPLE ALLERGIES INCLUDING NONSTEROIDAL ANTI-INFLAMMATORIES, PENTAZOCINE, TRIMETHOBENZAMIDE, TYLENOL, ADHESIVE, BUTORPHANOL, SOMA, CHLORZOXAZONE, CODEINE, CYCLOBENZAPRINE, ETC., WHICH ARE LISTED ON THE COMPUTER. SOCIAL HISTORY: She is a reformed smoker, nondrinker, does not use alcohol. , lives at home with her and daughter. FAMILY HISTORY: Noncontributory. REVIEW OF SYSTEMS: Remarkable for that as mentioned above. PHYSICAL EXAMINATION: GENERAL: She is a well-developed, well-nourished white female in no acute distress by the time I have seen her and seems to be mentally functioning, which is unusual with a BUN of 160. She does have dry mucous membranes. She was having some slurred speech in the Emergency Room, which I felt was likely due to her narcotics, but more likely due to azotemia. HEAD, EYES, EARS, NOSE, AND THROAT: Remarkable for dryness of mucous membranes. NECK: Supple without adenopathy or thyromegaly. CHEST: Reveals decreased breath sounds, but clear. HEART: Regular rate and rhythm without S3, S4, or murmur. ABDOMEN: Soft, nontender, without hepatosplenomegaly or masses. EXTREMITIES: Without cyanosis, clubbing or edema. NEUROLOGICAL: Exam is intact. IMPRESSION: Pancreatitis with acute renal failure and chest pain, likely related to the pancreatitis at this point in time with dehydration. She also has what appears to be a decubitus type changes over right greater trochanter what Emergency Room thought maybe it was a melanoma. We will ask dermatology to see for the same. PLAN: The patient has been admitted. Cardiology as well as GI as well as dermatology consultations have been obtained. She will be hydrated. Renal has been consulted. She will be followed alone for her renal function as well as pancreatitis, monitored, managed and treated appropriately. MILDRED CLAYTON MD DR: ALLISON/joel JOB#: [id number] / [id number]
--- NOTE | 2016-10-28 15:08 | PDOC2 ---
CONSULT Date of Consult Date of Consult DATE: 10/28/16 TIME: 15:07 Past Medical History Cardiovascular: CAD, CHF, HTN, [place], Hyperlipidemia Pulmonary: COPD CENTRAL NERVOUS SYSTEM: Other GI: Constipation, Hemorrhoids, Other Psych: Anxiety Musculoskeletal: Other Renal/: Chronic renal insuff Past Surgical History Past Surgical History: Appendectomy, Cholecystectomy, Hernia Repair, Total knee replacement, Tonsillectomy, Hysterectomy Family History Family History: Cancer, Coronary Artery Disease Social History ALCOHOL: none Drugs: None Lives: with Family Current Problem List Problem List Problems Medical Problems: (1) Acute renal failure Status: Acute (2) Angina at rest Status: Acute (3) Chest pain Status: Acute (4) Melanoma Status: Acute (5) Pancreatitis Status: Acute Current Medications Current Medications Current Medications Nitroglycerin (Nitrostat) 0.4 mg PRN Q5MIN PRN SL CP RATING > 1/10; Start at 16:15; Stop 10/26/16 at 20:42; Status DC Nitroglycerin/ Dextrose 250 ml @ 3 mls/hr 1X ONCE IV ; Start 10/26/16 at 16:15; Stop 10/30/16 at 03:34 Sodium Chloride 1,000 ml @ 1,000 mls/hr Q1H IV Last administered on 10/26/16 16:31; Start 10/26/16 at 16:30; Stop 10/26/16 at 17:29; Status DC Sodium Chloride (Normal Saline Flush) 10 ml QSHIFT PRN IV AFTER MEDS AND BLOOD DRAWS; Start 10/26/16 at 16:15 Ondansetron HCl (Zofran) 4 mg PRN Q8HRS PRN IV NAUSEA/VOMITING; Start 10/26/16 at 16:45; Stop 10/27/16 at 16:44; Status DC Fentanyl Citrate (Fentanyl 2ml Vial) 50 mcg PRN Q2HR PRN IV PAIN; Start at 16:45; Stop 10/27/16 at 16:44; Status DC Sodium Chloride 1,000 ml @ 100 mls/hr Q10H IV Last administered on 10/26/16 18 :08; Start 10/26/16 at 16:43; Stop 10/27/16 at 16:42; Status DC Nitroglycerin (Nitrostat) 0.4 mg PRN Q5MIN PRN SL CHEST PAIN; Start 10/26/16 at 16:45; Stop 10/26/16 at 20:42; Status DC Atenolol (Tenormin) 25 mg BID PO Last administered on 10/26/16 21:05; Start 10/26/16 at 21:00 Fentanyl (Duragesic 50mcg/ Hr Patch) 1 patch Q3DAYS TD ; Start 10/27/16 at 09:00 ; Stop 10/27/16 at 09:00; Status DC Isosorbide Mononitrate (Imdur) 30 mg DAILY PO Last administered on 10/28/16 09: 07; Start 10/27/16 at 09:00 Lisinopril (Prinivil) 10 mg DAILY PO ; Start 10/27/16 at 09:00 Nitroglycerin (Nitrostat) 0.4 mg PRN Q5MIN PRN SL CHEST PAIN; Start 10/26/16 at 20:30 Ondansetron HCl (Zofran Odt) 4 mg PRN Q6HRS PRN PO NAUSEA/VOMITING Last administered on 10/28/16 10:30; Start 10/26/16 at 20:30 Oxycodone/ Acetaminophen (Percocet 10/325) 1 tab PRN QID PRN PO PAIN Last administered on 10/27/16 20:37; Start 10/26/16 at 20:30 Non-Formulary Medication 50 mg TID PRN PO PAIN; Start 10/26/16 at 20:30; Status UNV Rivaroxaban (Xarelto) 15 mg DAILYWSUP PO ; Start 10/27/16 at 17:00; Status UNV Ropinirole HCl (Requip) 0.25 mg QHS PO Last administered on 10/27/16 20:37; Start 10/26/16 at 21:00 Amiodarone HCl (Cordarone) 200 mg DAILY PO Last administered on 10/28/16 09:12 ; Start 10/27/16 at 09:00 Sodium Chloride 1,000 ml @ 50 mls/hr Q20H IV Last administered on 10/28/16 09: 15; Start 10/26/16 at 20:30 Fentanyl (Duragesic 50mcg/ Hr Patch) 1 patch Q3DAYS TD ; Start 10/29/16 at 09:00 Apixaban (Eliquis) 2.5 mg BID PO Last administered on 10/28/16t 09:05; Start 10/27/16 at 11:00 Info (Anti-Coagulation Monitoring By Pharmacy) 1 each PRN DAILY PRN MC SEE COMMENTS; Start 10/27/16 at 10:45 Active Scripts Active Reported Amiodarone Hcl 200 Mg Tablet 1 Tab PO DAILY Lasix (Furosemide) 20 Mg Tablet 0.5 Tab PO BID Xarelto (Rivaroxaban) 20 Mg Tablet 20 Mg PO DAILY Isosorbide Mononitrate Er (Isosorbide Mononitrate) 60 Mg Tab.er.24h 1 Tab PO DAILY Requip (Ropinirole Hcl) 0.5 Mg Tablet 0.25 Tab PO HS NEXT DOSE: 04/23/15 EVENING Demerol (Meperidine Hcl) 50 Mg Tablet 50 Mg PO TID PRN Percocet 10-325 Mg Tablet (Oxycodone/Acetaminophen) 1 Each Tablet 1 Tab PO QID PRN NEXT DOSE: 04/23/15 AFTERNOON FENTANYL 50mcg/hr (Fentanyl) 1 Each Patch.td72 1 Patch TP Q3DAYS NEXT DOSE: 04/25/15 CHANGE PATCH Nitrostat (Nitroglycerin) 0.4 Mg Tab.subl 0.4 Mg SL PRN Q5MIN PRN Zofran Odt (Ondansetron) 4 Mg Tab.rapdis 4 Mg PO Q6HRS PRN Lisinopril 20 Mg Tablet 1 Tab PO DAILY NEXT DOSE: 04/24/15 AM Potassium Chloride 10 Meq Tablet.er 1 Tab PO DAILY NEXT DOSE: 04/24/15 AM Valium (Diazepam) 10 Mg Tablet 10 Mg PO QID NEXT DOSE: 04/23/15 2 PM Tenormin (Atenolol) 50 Mg Tablet 50 Mg PO BID NEXT DOSE: 04/23/15 PM Allergies Allergies: Coded Allergies: diphenhydramine (Verified Allergy, Severe, Shortness of Air, 10/26/15) Patient gets shortness of air and breaks out in hives. NSAIDS (Non-Steroidal Anti-Inflamma (Verified Allergy, Intermediate, All except Feldene, 05/31/14) Pentazocine Lactate (Verified Allergy, Intermediate, Blood pressure increase, chest pain, heart races, itching., 05/31/14) Trimethobenzamide HCl (Verified Allergy, Intermediate, Severe muscle spasms, 05/31/14) acetaminophen (Verified Allergy, Intermediate, Shallow breathing, slow heart rate, stomach pain, 05/31/14) adhesive (Verified Allergy, Intermediate, rash--"will explain.", 05/31/14) "Adhesive tape" & "paper tape" Pt's list reads: "rash----will explain." butorphanol tartrate (Verified Allergy, Intermediate, Hallucinations, PALOMARES, anxiety, rash, 05/31/14) carisoprodol (Verified Allergy, Intermediate, Fainting, fast heart rate, light-headed, 05/31/14) chlorzoxazone (Verified Allergy, Intermediate, Nausea, dizzy, rash, feels like I might pass out, 05/31/14) codeine (Verified Allergy, Intermediate, Shallow breathing, vomiting, severe PALOMARES, bradycardia, itching, 05/31/14) codeine phosphate (Verified Allergy, Intermediate, Shallow breathing, slow heart rate, stomach pain, 05/31/14) cyclobenzaprine HCl (Verified Allergy, Intermediate, Chest pain,PALOMARES, fast heart rate, nervous, 05/31/14) erythromycin base (Verified Allergy, Intermediate, Fainting, fast/irreg HR , rash, itiching, 05/31/14) hydromorphone HCl (Verified Allergy, Intermediate, Apneic, 05/31/14) iodine (Verified Allergy, Intermediate, Itching, skin rash, hives, 05/31/14) ketorolac tromethamine (Verified Allergy, Intermediate, Chest pain, sudden severe PALOMARES, 05/31/14) levofloxacin (Verified Allergy, Intermediate, Severe dizziness, heart races, itching, stomach pain, 05/31/14) midazolam HCl (Verified Allergy, Intermediate, Slow heart rate, affects bld pressure, mild rash, 05/31/14) morphine (Verified Allergy, Intermediate, apneic, 05/31/14) nalbuphine HCl (Verified Allergy, Intermediate, Tachycardia, confusion, hallucinations, nervous, 05/31/14) I S O L A T I O N *CONTACT* (Verified Allergy, Unknown, 05/03/16) ESBL Vitals VITALS Vital Signs Date Time Temp Pulse Resp B/P (MAP) Pulse Ox O2 Delivery O2 Flow Rate FiO2 10/28/16 10:50 97.7 65 18 96/48 (64) 93 Room Air 97.7 10/28/16 08:00 2.0 Labs Labs Laboratory Tests Test 10/26/16 16:25 10/26/16 16:34 10/26/16 17:35 10/26/16 23:58 White Blood Count 5.9 x10^3/uL (4.0-11.0) Red Blood Count 4.18 x10^6/uL (3.50-5.40) Hemoglobin 13.1 g/dL (12.0-15.5) Hematocrit 39.7 % (36.0-47.0) Mean Corpuscular Volume 95 fL (79-100) Mean Corpuscular Hemoglobin 31 pg (25-35) Mean Corpuscular Hemoglobin Concent 33 g/dL (31-37) Red Cell Distribution Width 14.5 % (11.5-14.5) Platelet Count 145 x10^3/uL (140-400) Neutrophils (%) (Auto) 65 % (31-73) Lymphocytes (%) (Auto) 20 % (24-48) Monocytes (%) (Auto) 12 % (0-9) Eosinophils (%) (Auto) 3 % (0-3) Basophils (%) (Auto) 1 % (0-3) Neutrophils # (Auto) 3.9 x10^3uL (1.8-7.7) Lymphocytes # (Auto) 1.2 x10^3/uL (1.0-4.8) Monocytes # (Auto) 0.7 x10^3/uL (0.0-1.1) Eosinophils # (Auto) 0.1 x10^3/uL (0.0-0.7) Basophils # (Auto) 0.0 x10^3/uL (0.0-0.2) Sodium Level 139 mmol/L (136-145) Potassium Level 4.7 mmol/L (3.5-5.1) Chloride Level 103 mmol/L (98-107) Carbon Dioxide Level 19 mmol/L (21-32) Anion Gap 17 (6-14) Blood Urea Nitrogen 163 mg/dL (7-20) Creatinine 4.8 mg/dL (0.6-1.0) Estimated GFR (Cockcroft-Gault) 8.8 Glucose Level 94 mg/dL (70-99) Calcium Level 9.1 mg/dL (8.5-10.1) Magnesium Level 2.1 mg/dL (1.8-2.4) Total Bilirubin 0.4 mg/dL (0.2-1.0) Direct Bilirubin 0.1 mg/dL (0.0-0.2) Aspartate Amino Transf (AST/SGOT) 25 U/L (15-37) Alanine Aminotransferase (ALT/SGPT) 29 U/L (14-59) Alkaline Phosphatase 157 U/L (46-116) Creatine Kinase 49 U/L (26-192) Creatine Kinase MB (Mass) 2.2 ng/mL (0.0-3.6) Creatine Kinase MB Relative Index % (0-4) Troponin I Quantitative < 0.017 ng/mL (0.000-0.055) < 0.017 ng/mL (0.000-0.055) EK-Fui-W-Type Natriuretic Peptide 1252 pg/mL (0-449) Total Protein 6.9 g/dL (6.4-8.2) Albumin 3.2 g/dL (3.4-5.0) Lipase 599 U/L (73-393) Bedside Troponin I 0.01 ng/ml (<0.08) Urine Collection Type Unknown Urine Color Yellow Urine Clarity Clear Urine pH 5.0 Urine Specific [place] 1.015 Urine Protein Negative mg/dL (NEG-TRACE) Urine Glucose (UA) Negative mg/dL (NEG) Urine Ketones (Stick) Negative mg/dL (NEG) Urine Blood Negative (NEG) Urine Nitrite Negative (NEG) Urine Bilirubin Negative (NEG) Urine Urobilinogen Dipstick 0.2 mg/dL (0.2 mg/dL) Urine Leukocyte Esterase Small (NEG) Urine RBC 1-2 /HPF (0-2) Urine WBC 11-20 /HPF (0-4) Urine Squamous Epithelial Cells Few /LPF Urine Bacteria Few /HPF (0-FEW) Urine Hyaline Casts Occasional /HPF Test 10/27/16 04:50 10/28/16 10:28 Erythrocyte Sedimentation Rate 7 (0-25) Sodium Level 142 mmol/L (136-145) 145 mmol/L (136-145) Potassium Level 4.1 mmol/L (3.5-5.1) 4.6 mmol/L (3.5-5.1) Chloride Level 110 mmol/L (98-107) 113 mmol/L (98-107) Carbon Dioxide Level 20 mmol/L (21-32) 21 mmol/L (21-32) Anion Gap 12 (6-14) 11 (6-14) Blood Urea Nitrogen 142 mg/dL (7-20) 83 mg/dL (7-20) Creatinine 3.7 mg/dL (0.6-1.0) 2.0 mg/dL (0.6-1.0) Estimated GFR (Cockcroft-Gault) 11.8 24.0 Glucose Level 101 mg/dL (70-99) 84 mg/dL (70-99) Calcium Level 8.4 mg/dL (8.5-10.1) 8.7 mg/dL (8.5-10.1) Troponin I Quantitative < 0.017 ng/mL (0.000-0.055) Lipase 321 U/L (73-393) Laboratory Tests Test 10/28/16 10:28 Sodium Level 145 mmol/L (136-145) Potassium Level 4.6 mmol/L (3.5-5.1) Chloride Level 113 mmol/L (98-107) Carbon Dioxide Level 21 mmol/L (21-32) Anion Gap 11 (6-14) Blood Urea Nitrogen 83 mg/dL (7-20) Creatinine 2.0 mg/dL (0.6-1.0) Estimated GFR (Cockcroft-Gault) 24.0 Glucose Level 84 mg/dL (70-99) Calcium Level 8.7 mg/dL (8.5-10.1) Lipase 321 U/L (73-393) Assessment/Plan Assessment/Plan RENAL CONSULT / ELISEO Consult seen 10/27/16. Dictated. # [id number] SEAN GOMES MD Oct 28, 2016 15:08
--- NOTE | 2016-10-28 16:52 | PDOC ---
Provider Note Provider Note She continues to have episodic retrosternal chest pain The duration of the pain is not typical for angina. She says it is now very brief lasting a few seconds. Lipase level has come down. Her BUN/creatinine and creatinine have improved. We will thus plan to investigate her for underlying coronary artery disease with an MPI tomorrow. 's custody with JIA Steele MD Oct 28, 2016 16:52
[2016-10-28 19:00] VITALS: BP 83/45
[2016-10-28] MEDS: rOPINIRole 0.25 MG TABLET. PO SCH (20:46)
[2016-10-28] MEDS: oxyCODONE/APAP 10/325 1 TAB TABLET PO PRN (21:04)
[2016-10-28 23:00] VITALS: BP 124/57
[2016-10-29] MEDS: oxyCODONE/APAP 10/325 1 TAB TABLET PO PRN ×4 (02:21→22:01)
--- NOTE | 2016-10-29 02:22 | CONS ---
DATE OF CONSULTATION: 10/27/2016 HISTORY OF PRESENT ILLNESS: This is a 81-year-old white female who was brought into the Emergency Room with chest pain. She says she started to have retrosternal chest discomfort yesterday morning. It gradually became worse and worse. It then spread to both sides of her chest. She got concerned and came into the Emergency Room. In the Emergency Room, an EKG was normal. She does say that the pain then radiated and came down into her abdomen. She does not appear to be a good historian. She says she sustained a myocardial infarction in 2013. Coronary arteriograms were done, but there was some difficulty negotiating through the femoral arteries. In any case, it was accomplished and she was told that she has triple vessel coronary artery disease and nothing could be done about it. She has had no chest pain since then. She gives a history of hypotension. There is no history of diabetes mellitus. She was oxygenating at 95% on nasal cannula. SOCIAL HISTORY: She does not smoke or take alcohol. PRESENT MEDICATIONS: 1. Amiodarone 200 mg a day. 2. Atenolol 50 mg twice a day. 3. Diazepam 10 mg 4 times a day. 4. Fentanyl patches. 5. Furosemide 20 mg twice a day. 6. Imdur 60 mg a day. 7. Lisinopril 20 mg a day. 8. Percocet. 9. Potassium chloride 10 mEq a day. 10. Xarelto 20 mg a day. 11. Requip 0.5 mg a day. PHYSICAL EXAMINATION: GENERAL: She was in no distress. VITAL SIGNS: The heart rate was 60 per minute and regular. The blood pressure was 100/50. LUNGS: Clear. HEART: The heart sounds were normal. There was a grade 1/6 systolic murmur at the base and a grade 2/4 diastolic murmur. There was no S3 or S4. EXTREMITIES: There is no edema. LABORATORY DATA: She had significant abnormalities in her lab work. Her BUN yesterday was elevated to 163 and the creatinine was 4.8. Her previous creatinine has been between 1 and 2. Today, the BUN is 142 and the creatinine is 3.7. The cardiac enzymes are negative. The BNP is elevated to 1252. The lipase was elevated to 599. DIAGNOSTIC DATA: An EKG showed no significant changes. Chest x-ray showed a normal-sized heart and chronic changes. This is suggestive of fibrosis other than CHF. IMPRESSION: 1. Chest pain and then abdominal pain, probably not cardiac in etiology because of no objective findings on the EKG or cardiac enzymes. 2. Consider acute pancreatitis. 3. Acute renal failure, etiology unclear. 4. Abnormal echocardiogram with a grade 2 diastolic dysfunction and aortic regurgitation and mitral regurgitation, which could be the basis for congestive heart failure, but no clinical or radiological findings of congestive heart failure. At this point, even though she does give a history of having had a myocardial infarction in 2013 and came in with chest pain, I do not believe I would want to pursue that further with an MPI. She has other problems going on such as possible acute pancreatitis and certainly in acute renal failure. Thus, even if the MPI is abnormal, there would be a hesitation in doing coronary arteriograms. At present, she has no chest pain. I will certainly follow until Dr. Ramirez returns on 10/30/2016. Thank you for asking us to see her. JIA DHILLON MD DR: TANK/joel JOB#: [id number] / [id number]
[2016-10-29 03:00] VITALS: BP 122/56
--- NOTE | 2016-10-29 03:27 | CONS ---
DATE OF CONSULTATION: 10/27/2016 HISTORY OF PRESENT ILLNESS: The patient is a 81-year-old lady with history of hypertension and CKD. Baseline creatinine close to 2. Hospitalized because of chest pain. This was ____ lasted for about 2-3 hours. She has a history of hypertension, coronary artery disease/atherosclerotic heart disease. She had no nausea, vomiting, diarrhea or diaphoresis. No cough. Symptoms were mostly considered to be pericarditis versus ____ pneumonia. No evidence of myocardial infarction. Her creatinine was elevated, requesting my consult. She is denying any blood in the urine. She is actually even on aware of any previous kidney problems, although some previous hospital records indicated CKD. PAST MEDICAL HISTORY: As above. PAST SURGICAL HISTORY: Significant for: 1. Cholecystectomy. 2. Hysterectomy. 3. Right knee replacement. 4. Lumbar laminectomy. 5. Tonsillectomy. 6. Hemorrhoidectomy. 7. Cardiac stents. REVIEW OF SYSTEMS: As above, otherwise negative on a 10-point scale. SOCIAL HISTORY: No tobacco, alcohol or recreational drugs. FAMILY HISTORY: Noncontributory due to age. PHYSICAL EXAMINATION: GENERAL: Elderly lady, appears in no distress or discomfort. VITAL SIGNS: Stable. She is afebrile. HEENT: Pupils reactive. Tongue is midline. NECK: Supple. LUNGS: Fairly good air entry. No rhonchi, rales or wheezing. CARDIOVASCULAR: Regular rate and rhythm, no rub. ABDOMEN: Soft, nontender, no rebound, guarding or masses. Bowel sounds active. EXTREMITIES: No edema. NEUROLOGIC: Nonfocal. LABORATORY DATA: Reviewed. IMPRESSION: 1. Acute renal failure likely tubular necrosis from compromised renal perfusion and vasomotor renal disease. 2. 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 3. Hypertension with chronic kidney disease. 4. Chest pain, appears atypical, workup per primary service. PLAN: Continue gentle hydration. Monitor intake and output. Monitor labs. Discussed with patient. Follow up daily with you. Thank you very much for the consultation. I appreciate the referral. SEAN GOMES MD DR: RIACRDO/joel JOB#: [id number] / [id number]
[2016-10-29] MEDS: IV 1/2 NORMAL SALINE 1,000 ML IV SCH (05:26)
[2016-10-29 06:16] LABS: CALCIUM 8.2 mg/dL (8.5-10.1); CREATININE 1.6 mg/dL (0.6-1.0); GFR 31.1
[2016-10-29 06:18] LABS: CHOLESTEROL/HDL RATIO 3.4
[2016-10-29 07:00] VITALS: BP 137/43
[2016-10-29] MEDS ORDERED: REGADENOSON 0.4 MG/5 ML DISP.SYRIN. IV ONE (09:30)
[2016-10-29] MEDS: ISOSORBIDE MONONITRATE ER 30 MG TAB.ER.24H PO SCH (09:32)
[2016-10-29] MEDS: ATENOLOL 25 MG TABLET. PO SCH ×2 (09:33→22:01)
[2016-10-29] MEDS: APIXABAN 2.5 MG TABLET. PO SCH ×2 (09:33→22:01)
[2016-10-29] MEDS: LISINOPRIL 10 MG TABLET PO SCH (09:33)
[2016-10-29] MEDS: fentaNYL 50MCG/HR PATCH 1 PATCH PATCH.TD72 TD SCH (09:36)
--- NOTE | 2016-10-29 09:58 | PDOC2 ---
GI CONSULT Reason For Consult: Pancreatitis HPI: HPI: 81 y/o female known to GI. Admitted 10/26/16 w/ chest pain radiating to both arms. Feels like she's "having a heart attack." Cardiology is following, plans for stress test today. Renal also following for acute renal failure. GI asked to see re: elevated lipase of 599 which is now normal. LFTs were also normal except Alk Phos 157. Since admission, chest pain (substernal) comes and goes randomly although was possibly worse after trying full liquids last night. Does not radiate toward abdomen or back (although does have low back pain - also note cardiology consult reports she did say pain radiated to abdomen). Has felt "lousy" x 3 months, possibly w/ decreased appetite and weight loss per her family. H/o diarrhea possibly related to pancreatic insufficiency as improved w/ Zenpep TID; current bowel pattern is alternating constipation ("for days") and diarrhea (last BM 2 days ago). Last colonoscopy in 2008, collagenous colitis on biopsies w/ attempted treatment w/ 5-ASA, steroids, and bile-binders. H/o "esophagus issues" in the past, has had previous EGD. No reflux/heartburn/dysphagia now, but does take viscous lidocaine and Tums QHS PRN for "pain." PMH: PMH: CAD, CHF, HTN, DC, HLD, COPD, reflex sympathetic dystrophy, collagenous colitis , ?pancreatic insufficiency, hemorrhoids, diarrhea/constipation, osteoporosis, CKD, appendectomy, cholecystectomy hernia repair, total knee replacement, tonsillectomy, hysterectomy FH: Family History: Cancer (colon - father), Other (colon polyps - sister, alcoholic pancreatitis - son) Social History: Smoke: No ALCOHOL: none Drugs: None ROS: GEN: Denies fevers, chills, sweats HEENT: Denies blurred vision, sore throat CV: +chest pain RESP: Denies shortness of air, cough GI: Per HPI : Denies hematuria, dysuria ENDO: ?weight loss NEURO: Denies confusion, dizziness MSK: +low back pain SKIN: Denies jaundice, pruritus Vitals: Vitals: Vital Signs Date Time Temp Pulse Resp B/P (MAP) Pulse Ox O2 Delivery O2 Flow Rate FiO2 10/29/16 09:40 96 Nasal Cannula 2.0 10/29/16 09:33 56 137/43 10/29/16 07:00 98.8 16 98.8 Labs: Labs: Laboratory Tests Test 10/28/16 10:28 10/29/16 05:35 Sodium Level 145 mmol/L (136-145) 143 mmol/L (136-145) Potassium Level 4.6 mmol/L (3.5-5.1) 4.0 mmol/L (3.5-5.1) Chloride Level 113 mmol/L (98-107) 113 mmol/L (98-107) Carbon Dioxide Level 21 mmol/L (21-32) 21 mmol/L (21-32) Anion Gap 11 (6-14) 9 (6-14) Blood Urea Nitrogen 83 mg/dL (7-20) 50 mg/dL (7-20) Creatinine 2.0 mg/dL (0.6-1.0) 1.6 mg/dL (0.6-1.0) Estimated GFR (Cockcroft-Gault) 24.0 31.1 Glucose Level 84 mg/dL (70-99) 85 mg/dL (70-99) Calcium Level 8.7 mg/dL (8.5-10.1) 8.2 mg/dL (8.5-10.1) Lipase 321 U/L (73-393) 330 U/L (73-393) Triglycerides Level 136 mg/dL (0-150) Cholesterol Level 111 mg/dL (0-200) LDL Cholesterol, Calculated 51 mg/dL (0-100) VLDL Cholesterol, Calculated 27 mg/dL (0-40) Non-HDL Cholesterol Calculated 78 mg/dL (0-129) HDL Cholesterol 33 mg/dL (40-60) Cholesterol/HDL Ratio 3.4 Allergies: Coded Allergies: diphenhydramine (Verified Allergy, Severe, Shortness of Air, 10/26/15) Patient gets shortness of air and breaks out in hives. NSAIDS (Non-Steroidal Anti-Inflamma (Verified Allergy, Intermediate, All except Feldene, 05/31/14) Pentazocine Lactate (Verified Allergy, Intermediate, Blood pressure increase, chest pain, heart races, itching., 05/31/14) Trimethobenzamide HCl (Verified Allergy, Intermediate, Severe muscle spasms, 05/31/14) acetaminophen (Verified Allergy, Intermediate, Shallow breathing, slow heart rate, stomach pain, 05/31/14) adhesive (Verified Allergy, Intermediate, rash--"will explain.", 05/31/14) "Adhesive tape" & "paper tape" Pt's list reads: "rash----will explain." butorphanol tartrate (Verified Allergy, Intermediate, Hallucinations, PALOMARES, anxiety, rash, 05/31/14) carisoprodol (Verified Allergy, Intermediate, Fainting, fast heart rate, light-headed, 05/31/14) chlorzoxazone (Verified Allergy, Intermediate, Nausea, dizzy, rash, feels like I might pass out, 05/31/14) codeine (Verified Allergy, Intermediate, Shallow breathing, vomiting, severe PALOMARES, bradycardia, itching, 05/31/14) codeine phosphate (Verified Allergy, Intermediate, Shallow breathing, slow heart rate, stomach pain, 05/31/14) cyclobenzaprine HCl (Verified Allergy, Intermediate, Chest pain,PALOMARES, fast heart rate, nervous, 05/31/14) erythromycin base (Verified Allergy, Intermediate, Fainting, fast/irreg HR , rash, itiching, 05/31/14) hydromorphone HCl (Verified Allergy, Intermediate, Apneic, 05/31/14) iodine (Verified Allergy, Intermediate, Itching, skin rash, hives, 05/31/14) ketorolac tromethamine (Verified Allergy, Intermediate, Chest pain, sudden severe PALOMARES, 05/31/14) levofloxacin (Verified Allergy, Intermediate, Severe dizziness, heart races, itching, stomach pain, 05/31/14) midazolam HCl (Verified Allergy, Intermediate, Slow heart rate, affects bld pressure, mild rash, 05/31/14) morphine (Verified Allergy, Intermediate, apneic, 05/31/14) nalbuphine HCl (Verified Allergy, Intermediate, Tachycardia, confusion, hallucinations, nervous, 05/31/14) I S O L A T I O N *CONTACT* (Verified Allergy, Unknown, 05/03/16) ESBL Medications: Current Medications Medications (Trade) Dose Ordered Sig/Cha Route PRN Reason Start Time Stop Time Status Last Admin Dose Admin Fentanyl (Duragesic 50mcg/ Hr Patch) 1 patch Q3DAYS TD 10/29/16 09:00 10/29/16 09:36 Imaging: Imaging: CXR IMPRESSION: Chronic changes. No acute finding. No significant change. RUQ US IMPRESSION: Postcholecystectomy with prominent intrahepatic and extrahepatic bile ducts. This is commonly seen postcholecystectomy but would correlate with symptoms and lab markers to ensure there is not a distal obstructive process. Right Hip X-Ray Impression: No acute abnormality is detected. PE: GEN: NAD HEENT: Atraumatic, PERRL LUNGS: clear anteriorly HEART: RRR ABD: NABS, S/ND/NT EXTREMITY: No edema SKIN: wound right hip NEURO/PSYCH: A & O 3, very talkative, poor historian A/P: A/P: Elevated lipase - resolved -s/p cholecystectomy Chest pain, acute renal failure -per cardiology, nephrology ?pancreatic insufficiency -h/o diarrhea and collagenous colitis improved w/ pancreatic enzymes -last colonoscopy 2008 ?dyspepsia/abd pain - currently denies -takes viscous lidocaine and Tums PRN QHS -reports previous EGD Right hip wound -per primary -- Await stress test. Other per Dr. Covarrubias. SHEYLA HAMILTON Oct 29, 2016 09:58
[2016-10-29] MEDS: ONDANSETRON ODT 4 MG TAB.RAPDIS. PO PRN (11:39)
[2016-10-29] MEDS: LIPASE/PROTEAS/AMYLAS 10/34/55 CAPSULE.DR. PO SCH ×2 (11:41→16:33)
[2016-10-29 11:56] VITALS: BP 156/56
[2016-10-29] MEDS: diazePAM 5 MG TABLET PO SCH ×2 (16:33→22:00)
[2016-10-29] MEDS: PANTOPRAZOLE 40 MG TABLET.DR. PO SCH (16:35)
[2016-10-29 19:00] VITALS: BP 113/54
--- NOTE | 2016-10-29 19:25 | CARD ---
APPROVED REPORT EXAM: Two-dimensional and M-mode echocardiogram with Doppler and color Doppler. Other Information Quality : Good INDICATION Chest Pain 2D DIMENSIONS RVDd2.6 (2.9-3.5cm)Left Atrium(2D)3.2 (1.6-4.0cm) IVSd1.2 (0.7-1.1cm)Aortic Root(2D)2.1 (2.0-3.7cm) LVDd3.5 (3.9-5.9cm)LVOT Diameter2.0 (1.8-2.4cm) PWd0.9 (0.7-1.1cm)LVDs2.4 (2.5-4.0cm) FS (%) 30.6 %SV29.7 ml LVEF(%)59.1 (>50%) Aortic Valve AoV Peak Jose Guadalupe.121.9cm/sAoV VTI30.4cm AO Peak GR.5.9mmHgLVOT VTI 24.14cm AO Mean GR.4mmHgAVA (VTI)2.40cm2 AI P 1/2 Togw077va Mitral Valve MV E Hjjjgvkz77.1cm/sMV DECEL [id number] MV A Wkxuxrzc03.6cm/sE/A Ratio1.0 TDI Lateral E' P. V8.88cm/sMedial E' P. V6.41cm/s E/Lateral E'9.6E/Medial E'13.3 Tricuspid Valve TR P. Shcglvbl018ua/sRAP [id number] TR Peak Gr.27xnRaWFUI07ugYc Pulmonary Vein S1 Qwknysat38.3cm/sS2 Drkcpwry88.93cm/s D2 Vehwocgk53.9cm/sPVa qzfqkegs692ixbx LEFT VENTRICLE The left ventricle is normal size. There is mild asymmetric septal left ventricular hypertrophy. The left ventricular systolic function is normal and the ejection fraction is within normal range. The Ej ection Fraction is 55-60%. There is normal LV segmental wall motion. RIGHT VENTRICLE The right ventricle is normal size. The right ventricular systolic function is normal. ATRIA The left atrium size is normal. The right atrium size is normal. The interatrial septum is intact wit h no evidence for an atrial septal defect or patent foramen ovale as noted on 2-D or Doppler imaging. AORTIC VALVE The aortic valve is calcified but opens well. Doppler and Color Flow revealed mild aortic regurgitati on. There is no significant aortic valvular stenosis. MITRAL VALVE The mitral valve is calified and redundant. There is no evidence of mitral valve prolapse. There is n o mitral valve stenosis. Doppler and Color-flow revealed mild mitral regurgitation. TRICUSPID VALVE The tricuspid valve is normal in structure and function. Doppler and Color Flow revealed mild tricusp id regurgitation. There is moderate pulmonary hypertension. The PA pressure was estimated at 50 mmHg. There is no tricuspid valve stenosis. PULMONIC VALVE The pulmonary valve is normal in structure and function. Doppler and Color Flow revealed mild pulmoni c valvular regurgitation. There is no pulmonic valvular stenosis. GREAT VESSELS The aortic root is normal in size. The ascending aorta is normal in size. The IVC is normal in size a nd collapses >50% with inspiration. PERICARDIAL EFFUSION There is no evidence of significant pericardial effusion. Critical Notification Critical Value: No <Conclusion> The left ventricle is normal size. There is mild asymmetric septal left ventricular hypertrophy. The left ventricular systolic function is normal and the ejection fraction is within normal range. The Ejection Fraction is 55-60%. The diastolic function is normal. There is no evidence of significant pericardial effusion. There is no mitral valve stenosis. Doppler and Color-flow revealed mild mitral regurgitation. The left atrium is of a normal size There is no significant aortic valvular stenosis. Doppler and Color Flow revealed mild aortic regurgitation. The right ventricle is of a normal size Doppler and Color Flow revealed mild tricuspid regurgitation. There is moderate pulmonary hypertension. The PA pressure was estimated at 50 mmHg. Doppler and Color Flow revealed mild pulmonic valvular regurgitation.
--- NOTE | 2016-10-29 19:40 | RAD ---
APPROVED REPORT Test Type: Pharmacological Stress Nurse/Tech: Veronica Briseno R.N. Test Indications: chest pain Cardiac History: Hypertension, [place] in 2013 Medications: See Electronic Medical Record Medical History: See Electronic Medical Record Resting ECG: LBBB Resting Heart Rate: 56 bpm Resting Blood Pressure: 163/62mmHg Pretest Chest Pain: No chest pain Nurse/Tech Notes S1S2, lungs sound clear Consent: The procedure was explained to the patient in lay terms. Informed consent was witnessed. Raymond eout was entered into [employer]. History and Stress Test performed by Veronica Briseno R.N. Pharm. Details Pharmacologic stress testing was performed using 0.4mg per 5ml of regadenoson given intravenously ove r 7-10 seconds. Stress Symptoms Dyspnea, Nausea, Chest pain Chest pain typical of angina occurred (Severity rated at 10 , cont. till pt gpt back to room min dura tion). POST EXERCISE Reason for Termination: Infusion complete Max HR: 82 bpm Max Blood Pressure: 148/63mmHg Blood Pressure response to exercise: Normal blood pressure response during stress. Chest Pain: Yes. Arrhythmia: No. ST Change: No. Imaging Protocol IMAGE PROTOCOL: Rest Tc-99m/stress Tc-99m 1 day Rest: Stress: Viability: Radiopharm.Tc99m HgghioygdOq80c Sestamibi Nasp04zPg 33mCi Img Date 10/29/2016 10/29/2016 Inj-Img Pwie37tds. 60min. Rest Admin Site:portAdministrator:RT Dimitrios (R)(N) Stress Admin Site: portAdministrator: RT Dimitrios (R)(N) STRESS DATA End Diast. Vol.49.0mlAv. Heart Rate67.0bpm End Syst. Vol.13.0mlCO Index BSA0.0L/min Myocardial Mass98.0gEject. Jldrtyes43.0% Stress Rates Pk. Fill Rate2.78EDV/secLVtime Pk. Fill 222.87msec Pk. Empty Rate3.64ESV/secLVtime Pk. Pvesu540.45msec 05/29 Pk. Fill0.84EDV/sec Stress Scores Regional WT1.00Summed WT7.00 Regional WM0.00Summed WM0.00 LV Perf. Quant 17 Seg. SSS3.00 17 Seg. SRS18.00 17 Seg. SDS1.00 Stress Defect Extent (% LAD)0.00Rest Defect Extent (% LAD)35.00Rev. Defect Extent (% LAD)0.00 Stress Defect Extent (% LCX) 40.00Rest Defect Extent (% LCX)66.30Rev. Defect Extent (% LCX)18.80 Stress Defect Extent (% RCA)0.00Rest Defect Extent (% RCA)23.30Rev. Defect Extent (% RCA)0.00 Stress Defect Extent (% JUDITH)7.00Rest Defect Extent (% JUDITH)42.60Rev. Defect Extent (% JUDITH)3.30 Conclusion 1. No perfusion defects seen with stress imaging, indicating that there is no evidence of myocardial ischemia. 2. Normal wall motion and wall thickening with an ejection fraction of 73%.
--- NOTE | 2016-10-29 21:39 | PDOC ---
Provider Note Provider Note Covering for Dr. Ramirez. MPI showed no evidence of myocardial ischemia. Chest pain is probably not due to a cardiac cause. Will sign off. Thank you for asking Dr. Ramirez to see her. JIA DHILLON MD Oct 29, 2016 21:39
[2016-10-29] MEDS: rOPINIRole 0.25 MG TABLET. PO SCH (22:00)
--- NOTE | 2016-10-29 22:02 | PDOC ---
GENERAL General: vss and afebrile. awake and alert and ongoing intermittent chest pain. BUN decreased to 50 and creatinine down to 1.6. tolerated full liquid diet. exam stable. mpi normal. continue same. Problems: VITAL SIGNS Vital Signs: Vital Signs Date Time Temp Pulse Resp B/P (MAP) Pulse Ox O2 Delivery O2 Flow Rate FiO2 10/29/16 20:00 Nasal Cannula 2.0 10/29/16 15:56 96 10/29/16 11:56 97.7 74 18 156/56 (89) 97.7 I & O I & O Intake and Output 10/29/16 07:00 Intake Total 1780 ml Output Total 900 ml Balance 880 ml Intake Oral 780 ml IV Total 1000 ml Output Urine Total 900 ml # Voids 1 # Bowel Movements 2 ALLERGIES Allergies: Allergies Coded Allergies Type Severity Reaction Last Updated Verified diphenhydramine Allergy Severe Shortness of Air 10/26/15 Yes NSAIDS (Non-Steroidal Anti-Inflamma Allergy Intermediate All except Feldene 05/31/14 Yes Pentazocine Lactate Allergy Intermediate Blood pressure increase, chest pain, heart races, itching. 05/31/14 Yes Trimethobenzamide HCl Allergy Intermediate Severe muscle spasms 05/31/14 Yes acetaminophen Allergy Intermediate Shallow breathing, slow heart rate, stomach pain 05/31/14 Yes adhesive Allergy Intermediate rash--"will explain." 05/31/14 Yes butorphanol tartrate Allergy Intermediate Hallucinations, PALOMARES, anxiety, rash 05/31/14 Yes carisoprodol Allergy Intermediate Fainting, fast heart rate, light-headed Yes chlorzoxazone Allergy Intermediate Nausea, dizzy, rash, feels like I might pass out 05/31/14 Yes codeine Allergy Intermediate Shallow breathing, vomiting, severe PALOMARES, bradycardia, itching 05/31/14 Yes codeine phosphate Allergy Intermediate Shallow breathing, slow heart rate, stomach pain 05/31/14 Yes cyclobenzaprine HCl Allergy Intermediate Chest pain,PALOMARES, fast heart rate, nervous 05/31/14 Yes erythromycin base Allergy Intermediate Fainting, fast/irreg HR, rash, itiching 05/31/14 Yes hydromorphone HCl Allergy Intermediate Apneic 05/31/14 Yes iodine Allergy Intermediate Itching, skin rash, hives 05/31/14 Yes ketorolac tromethamine Allergy Intermediate Chest pain, sudden severe PALOMARES Yes levofloxacin Allergy Intermediate Severe dizziness, heart races, itching, stomach pain 05/31/14 Yes midazolam HCl Allergy Intermediate Slow heart rate, affects bld pressure, mild rash 05/31/14 Yes morphine Allergy Intermediate apneic 05/31/14 Yes nalbuphine HCl Allergy Intermediate Tachycardia, confusion, hallucinations, nervous 05/31/14 Yes I S O L A T I O N *CONTACT* Allergy Unknown 05/03/16 Yes MEDS Medications: Current Medications Medications (Trade) Dose Ordered Sig/Cha Start Time Stop Time Status Last Admin Dose Admin Amiodarone HCl (Cordarone) 200 mg DAILY 10/27/16 09:00 10/28/16 09:12 200 MG Amylase/Lipase/ Protease (Zenpep 10,000) 2 cap TIDWMEALS 10/29/16 12:00 10/29/16 16:33 2 CAP Apixaban (Eliquis) 2.5 mg BID 10/27/16 11:00 10/29/16 09:33 2.5 MG Atenolol (Tenormin) 25 mg BID 10/26/16 21:00 10/29/16 09:33 25 MG Diazepam (Valium) 10 mg QID 10/29/16 17:00 10/29/16 16:33 10 MG Fentanyl (Duragesic 50mcg/ Hr Patch) 1 patch Q3DAYS 10/29/16 09:00 10/29/16 09:36 1 PATCH Fentanyl Citrate (Fentanyl 2ml Vial) 50 mcg PRN Q2HR PRN 10/26/16 16:45 10/27/16 16:44 DC Info (Anti-Coagulation Monitoring By Pharmacy) 1 each PRN DAILY PRN 10/27/16 10:45 Isosorbide Mononitrate (Imdur) 30 mg DAILY 10/27/16 09:00 10/29/16 09:32 30 MG Lisinopril (Prinivil) 10 mg DAILY 10/27/16 09:00 10/29/16 09:33 10 MG Nitroglycerin (Nitrostat) 0.4 mg PRN Q5MIN PRN 10/26/16 20:30 Nitroglycerin/ Dextrose 250 ml @ 3 mls/hr 1X ONCE 10/26/16 16:15 10/30/16 03:34 Non-Formulary Medication 50 mg TID PRN 10/26/16 20:30 UNV Ondansetron HCl (Zofran Odt) 4 mg PRN Q6HRS PRN 10/26/16 20:30 10/29/16 11:39 4 MG Ondansetron HCl (Zofran) 4 mg PRN Q8HRS PRN 10/26/16 16:45 10/27/16 16:44 DC Oxycodone/ Acetaminophen (Percocet 10/325) 1 tab PRN QID PRN 10/26/16 20:30 10/29/16 15:56 1 TAB Pantoprazole Sodium (Protonix) 40 mg DAILYAC 10/29/16 16:30 10/29/16 16:35 40 MG Regadenoson (Lexiscan) 0.4 mg 1X ONCE 10/29/16 09:30 10/29/16 09:31 DC 10/29/16 11:18 0.4 MG Rivaroxaban (Xarelto) 15 mg DAILYWSUP 10/27/16 17:00 UNV Ropinirole HCl (Requip) 0.25 mg QHS 10/26/16 21:00 10/28/16 20:46 0.25 MG Sodium Chloride 1,000 ml @ 50 mls/hr Q20H 10/26/16 20:30 10/29/16 05:26 50 MLS/HR Sodium Chloride (Normal Saline Flush) 10 ml QSHIFT PRN 10/26/16 16:15 LAB Lab: Laboratory Tests Test 10/29/16 05:35 Sodium Level 143 mmol/L (136-145) Potassium Level 4.0 mmol/L (3.5-5.1) Chloride Level 113 mmol/L (98-107) Carbon Dioxide Level 21 mmol/L (21-32) Anion Gap 9 (6-14) Blood Urea Nitrogen 50 mg/dL (7-20) Creatinine 1.6 mg/dL (0.6-1.0) Estimated GFR (Cockcroft-Gault) 31.1 Glucose Level 85 mg/dL (70-99) Calcium Level 8.2 mg/dL (8.5-10.1) Triglycerides Level 136 mg/dL (0-150) Cholesterol Level 111 mg/dL (0-200) LDL Cholesterol, Calculated 51 mg/dL (0-100) VLDL Cholesterol, Calculated 27 mg/dL (0-40) Non-HDL Cholesterol Calculated 78 mg/dL (0-129) HDL Cholesterol 33 mg/dL (40-60) Cholesterol/HDL Ratio 3.4 Lipase 330 U/L (73-393) MILDRED CLAYTON MD Oct 29, 2016 22:02
[2016-10-29 23:00] VITALS: BP 150/58
--- NOTE | 2016-10-29 23:27 | PDOC ---
Provider Note Provider Note RENAL F/U : ELISEO DOS : 10/28/16. S : No new issues. O : VSS Afebrile. Neck : Supple Lungs : Non labored. CVS : RRR Abd : Benign in appearance, without distention. Ext : 1+ edema Neuro : Awake. Labs reviewed. A/P : ARF/ATN HRN w CKD CKD STAGE I/II Doing Ok IVF. CPM. SEAN GOMES MD Oct 29, 2016 23:27
--- NOTE | 2016-10-29 23:28 | PDOC ---
Provider Note Provider Note RENAL F/U : ELISEO DOS : 10/29/16. S : No new issues. O : VSS Afebrile. Neck : Supple Lungs : Non labored. CVS : RRR Abd : Benign in appearance, without distention. Ext : 1+ edema Neuro : Awake. Labs reviewed. A/P : ARF/ATN HTN w CKD CKD II Doing Ok Cr better. Supportive care. CPM. SEAN GOMES MD Oct 29, 2016 23:28
[2016-10-30] MEDS: ONDANSETRON ODT 4 MG TAB.RAPDIS. PO PRN ×2 (02:34→15:51)
[2016-10-30] MEDS: IV 1/2 NORMAL SALINE 1,000 ML IV SCH ×2 (02:39→20:19)
[2016-10-30 03:00] VITALS: BP 133/54
[2016-10-30] MEDS: PANTOPRAZOLE 40 MG TABLET.DR. PO SCH (05:06)
[2016-10-30] MEDS: oxyCODONE/APAP 10/325 1 TAB TABLET PO PRN ×3 (05:06→20:18)
[2016-10-30 07:00] VITALS: BP 162/77
[2016-10-30 07:37] LABS: CALCIUM 8.4 mg/dL (8.5-10.1); CREATININE 1.3 mg/dL (0.6-1.0); GFR 39.5; POTASSIUM 4.5 mmol/L (3.5-5.1)
--- NOTE | 2016-10-30 08:06 | PDOC ---
GENERAL General: vss and afebrile. awake and alert and daughter in attendance. eating well. BUN decreased to 26 and creatinine down to 1.3. MPI negative with normal EF. right hip wound much less red likely related to mattress here in hospital. will await dermatology opinion on same. chest clear and heart regular. with normalizing renal function will be able to resume xarelto on discharge. Problems: VITAL SIGNS Vital Signs: Vital Signs Date Time Temp Pulse Resp B/P (MAP) Pulse Ox O2 Delivery O2 Flow Rate FiO2 10/30/16 05:06 18 96 Nasal Cannula 2.0 10/30/16 03:00 98.1 69 133/54 (80) 98.1 I & O I & O Intake and Output 10/30/16 07:00 Intake Total 2710 ml Output Total 900 ml Balance 1810 ml Intake Oral 1710 ml IV Total 1000 ml Output Urine Total 900 ml # Voids 2 # Bowel Movements 1 ALLERGIES Allergies: Allergies Coded Allergies Type Severity Reaction Last Updated Verified diphenhydramine Allergy Severe Shortness of Air 10/26/15 Yes NSAIDS (Non-Steroidal Anti-Inflamma Allergy Intermediate All except Feldene 05/31/14 Yes Pentazocine Lactate Allergy Intermediate Blood pressure increase, chest pain, heart races, itching. 05/31/14 Yes Trimethobenzamide HCl Allergy Intermediate Severe muscle spasms 05/31/14 Yes acetaminophen Allergy Intermediate Shallow breathing, slow heart rate, stomach pain 05/31/14 Yes adhesive Allergy Intermediate rash--"will explain." 05/31/14 Yes butorphanol tartrate Allergy Intermediate Hallucinations, PALOMARES, anxiety, rash 05/31/14 Yes carisoprodol Allergy Intermediate Fainting, fast heart rate, light-headed Yes chlorzoxazone Allergy Intermediate Nausea, dizzy, rash, feels like I might pass out 05/31/14 Yes codeine Allergy Intermediate Shallow breathing, vomiting, severe PALOMARES, bradycardia, itching 05/31/14 Yes codeine phosphate Allergy Intermediate Shallow breathing, slow heart rate, stomach pain 05/31/14 Yes cyclobenzaprine HCl Allergy Intermediate Chest pain,PALOMARES, fast heart rate, nervous 05/31/14 Yes erythromycin base Allergy Intermediate Fainting, fast/irreg HR, rash, itiching 05/31/14 Yes hydromorphone HCl Allergy Intermediate Apneic 05/31/14 Yes iodine Allergy Intermediate Itching, skin rash, hives 05/31/14 Yes ketorolac tromethamine Allergy Intermediate Chest pain, sudden severe PALOMARES Yes levofloxacin Allergy Intermediate Severe dizziness, heart races, itching, stomach pain 05/31/14 Yes midazolam HCl Allergy Intermediate Slow heart rate, affects bld pressure, mild rash 05/31/14 Yes morphine Allergy Intermediate apneic 05/31/14 Yes nalbuphine HCl Allergy Intermediate Tachycardia, confusion, hallucinations, nervous 05/31/14 Yes I S O L A T I O N *CONTACT* Allergy Unknown 05/03/16 Yes MEDS Medications: Current Medications Medications (Trade) Dose Ordered Sig/Cha Start Time Stop Time Status Last Admin Dose Admin Amiodarone HCl (Cordarone) 200 mg DAILY 10/27/16 09:00 10/28/16 09:12 200 MG Amylase/Lipase/ Protease (Zenpep 10,000) 2 cap TIDWMEALS 10/29/16 12:00 10/29/16 16:33 2 CAP Apixaban (Eliquis) 2.5 mg BID 10/27/16 11:00 10/29/16 22:01 2.5 MG Atenolol (Tenormin) 25 mg BID 10/26/16 21:00 10/29/16 22:01 25 MG Diazepam (Valium) 10 mg QID 10/29/16 17:00 10/29/16 22:00 10 MG Fentanyl (Duragesic 50mcg/ Hr Patch) 1 patch Q3DAYS 10/29/16 09:00 10/29/16 09:36 1 PATCH Fentanyl Citrate (Fentanyl 2ml Vial) 50 mcg PRN Q2HR PRN 10/26/16 16:45 10/27/16 16:44 DC Info (Anti-Coagulation Monitoring By Pharmacy) 1 each PRN DAILY PRN 10/27/16 10:45 Isosorbide Mononitrate (Imdur) 30 mg DAILY 10/27/16 09:00 10/29/16 09:32 30 MG Lisinopril (Prinivil) 10 mg DAILY 10/27/16 09:00 10/29/16 09:33 10 MG Nitroglycerin (Nitrostat) 0.4 mg PRN Q5MIN PRN 10/26/16 20:30 Nitroglycerin/ Dextrose 250 ml @ 3 mls/hr 1X ONCE 10/26/16 16:15 10/30/16 03:34 DC Non-Formulary Medication 50 mg TID PRN 10/26/16 20:30 UNV Ondansetron HCl (Zofran Odt) 4 mg PRN Q6HRS PRN 10/26/16 20:30 10/30/16 02:34 4 MG Ondansetron HCl (Zofran) 4 mg PRN Q8HRS PRN 10/26/16 16:45 10/27/16 16:44 DC Oxycodone/ Acetaminophen (Percocet 10/325) 1 tab PRN QID PRN 10/26/16 20:30 10/30/16 05:06 1 TAB Pantoprazole Sodium (Protonix) 40 mg DAILYAC 10/29/16 16:30 10/30/16 05:06 40 MG Regadenoson (Lexiscan) 0.4 mg 1X ONCE 10/29/16 09:30 10/29/16 09:31 DC 10/29/16 11:18 0.4 MG Rivaroxaban (Xarelto) 15 mg DAILYWSUP 10/27/16 17:00 UNV Ropinirole HCl (Requip) 0.25 mg QHS 10/26/16 21:00 10/29/16 22:00 0.25 MG Sodium Chloride 1,000 ml @ 50 mls/hr Q20H 10/26/16 20:30 10/30/16 02:39 50 MLS/HR Sodium Chloride (Normal Saline Flush) 10 ml QSHIFT PRN 10/26/16 16:15 LAB Lab: Laboratory Tests Test 10/30/16 07:05 Sodium Level 145 mmol/L (136-145) Potassium Level 4.5 mmol/L (3.5-5.1) Chloride Level 115 mmol/L (98-107) Carbon Dioxide Level 22 mmol/L (21-32) Anion Gap 8 (6-14) Blood Urea Nitrogen 26 mg/dL (7-20) Creatinine 1.3 mg/dL (0.6-1.0) Estimated GFR (Cockcroft-Gault) 39.5 Glucose Level 105 mg/dL (70-99) Calcium Level 8.4 mg/dL (8.5-10.1) MILDRED CLAYTON MD Oct 30, 2016 08:06
[2016-10-30] MEDS: LIPASE/PROTEAS/AMYLAS 10/34/55 CAPSULE.DR. PO SCH ×3 (09:15→17:09)
[2016-10-30] MEDS: AMIODARONE HCL 200 MG TABLET. PO SCH (09:16)
[2016-10-30] MEDS: APIXABAN 2.5 MG TABLET. PO SCH ×2 (09:16→20:18)
[2016-10-30] MEDS: ISOSORBIDE MONONITRATE ER 30 MG TAB.ER.24H PO SCH (09:17)
[2016-10-30] MEDS: LISINOPRIL 10 MG TABLET PO SCH (09:17)
[2016-10-30] MEDS: diazePAM 5 MG TABLET PO SCH ×4 (09:18→20:19)
[2016-10-30] MEDS: ATENOLOL 25 MG TABLET. PO SCH ×2 (09:18→20:18)
[2016-10-30 11:00] VITALS: BP 138/55
--- NOTE | 2016-10-30 12:29 | PDOC ---
Subjective: Subjective: Says fell twice earlier. Abd pain today. Objective: Vital Signs: Vital Signs Date Time Temp Pulse Resp B/P (MAP) Pulse Ox O2 Delivery O2 Flow Rate FiO2 10/30/16 11:00 98.0 65 18 138/55 (82) 95 Room Air 98.0 10/30/16 08:00 2.0 Labs: Laboratory Tests Test 10/30/16 07:05 Sodium Level 145 mmol/L Potassium Level 4.5 mmol/L Chloride Level 115 mmol/L Carbon Dioxide Level 22 mmol/L Anion Gap 8 Blood Urea Nitrogen 26 mg/dL Creatinine 1.3 mg/dL Estimated GFR (Cockcroft-Gault) 39.5 Glucose Level 105 mg/dL Calcium Level 8.4 mg/dL Imaging: MPI 11/08/16 Conclusion 1. No perfusion defects seen with stress imaging, indicating that there is no evidence of myocardial ischemia. 2. Normal wall motion and wall thickening with an ejection fraction of 73%. PE: GEN: NAD, up to chair LUNGS: clear HEART: RRR ABD: periumbilical tenderness, also some RLQ to right hip NEURO/PSYCH: A & O 3 A/P: GERD/dyspepsia/abd pain -takes viscous lidocaine and Tums PRN QHS at home -started PPI here yesterday Chest pain, acute renal failure -stress test ok, Cr improving ?pancreatic insufficiency -h/o diarrhea improved w/ pancreatic enzymes -additional h/o collagenous colitis, last colonoscopy 2008 Falls -- Continue PPI QD. SHEYLA HAMILTON Oct 30, 2016 12:29
[2016-10-30 15:00] VITALS: BP 145/78
[2016-10-30 19:00] VITALS: BP 136/62
[2016-10-30] MEDS: rOPINIRole 0.25 MG TABLET. PO SCH (20:18)
[2016-10-30 23:00] VITALS: BP 135/59
--- NOTE | 2016-10-30 23:53 | PDOC ---
Provider Note Provider Note RENAL F?U : ELISEO S : No new issues. O : VSS Afebrile. Neck : Supple Lungs : Non labored. CVS : RRR Abd : Benign in appearance, without distention. Ext : 1+ edema Neuro : Awake. Labs reviewed. A/P : ARF/ATN HTN w CKD CKD II Doing Ok Cr now 1.2 Supportive care. CPM. SEAN GOMES MD Oct 30, 2016 23:53
[2016-10-31 03:00] VITALS: BP 143/61
[2016-10-31] MEDS: ONDANSETRON ODT 4 MG TAB.RAPDIS. PO PRN ×2 (05:55→20:44)
[2016-10-31] MEDS: PANTOPRAZOLE 40 MG TABLET.DR. PO SCH (05:55)
[2016-10-31] MEDS: oxyCODONE/APAP 10/325 1 TAB TABLET PO PRN ×3 (05:55→22:09)
[2016-10-31 07:00] VITALS: BP 168/59
--- NOTE | 2016-10-31 08:20 | PDOC ---
GENERAL General: vss and afebrile. awake and alert and daughter in attendance. not able to get morning lab draws from port and will have radiology evaluate. fall in room twice yesterday and therapy to eval for same. dysuria this am and will check ua/ c&s. still awaiting dermatology eval for right hip process though definitely improved since admission. exam stable. hopefully dc tomorrow. Problems: VITAL SIGNS Vital Signs: Vital Signs Date Time Temp Pulse Resp B/P (MAP) Pulse Ox O2 Delivery O2 Flow Rate FiO2 10/31/16 06:42 90 Room Air 2.0 10/31/16 05:55 18 10/31/16 03:00 98.2 70 143/61 (88) 98.2 I & O I & O Intake and Output 10/31/16 07:00 Intake Total 3500 ml Output Total 800 ml Balance 2700 ml Intake Oral 2500 ml IV Total 1000 ml Output Urine Total 800 ml # Voids 4 # Bowel Movements 1 ALLERGIES Allergies: Allergies Coded Allergies Type Severity Reaction Last Updated Verified diphenhydramine Allergy Severe Shortness of Air 10/26/15 Yes NSAIDS (Non-Steroidal Anti-Inflamma Allergy Intermediate All except Feldene 05/31/14 Yes Pentazocine Lactate Allergy Intermediate Blood pressure increase, chest pain, heart races, itching. 05/31/14 Yes Trimethobenzamide HCl Allergy Intermediate Severe muscle spasms 05/31/14 Yes acetaminophen Allergy Intermediate Shallow breathing, slow heart rate, stomach pain 05/31/14 Yes adhesive Allergy Intermediate rash--"will explain." 05/31/14 Yes butorphanol tartrate Allergy Intermediate Hallucinations, PALOMARES, anxiety, rash 05/31/14 Yes carisoprodol Allergy Intermediate Fainting, fast heart rate, light-headed Yes chlorzoxazone Allergy Intermediate Nausea, dizzy, rash, feels like I might pass out 05/31/14 Yes codeine Allergy Intermediate Shallow breathing, vomiting, severe PALOMARES, bradycardia, itching 05/31/14 Yes codeine phosphate Allergy Intermediate Shallow breathing, slow heart rate, stomach pain 05/31/14 Yes cyclobenzaprine HCl Allergy Intermediate Chest pain,PALOMARES, fast heart rate, nervous 05/31/14 Yes erythromycin base Allergy Intermediate Fainting, fast/irreg HR, rash, itiching 05/31/14 Yes hydromorphone HCl Allergy Intermediate Apneic 05/31/14 Yes iodine Allergy Intermediate Itching, skin rash, hives 05/31/14 Yes ketorolac tromethamine Allergy Intermediate Chest pain, sudden severe PALOMARES Yes levofloxacin Allergy Intermediate Severe dizziness, heart races, itching, stomach pain 05/31/14 Yes midazolam HCl Allergy Intermediate Slow heart rate, affects bld pressure, mild rash 05/31/14 Yes morphine Allergy Intermediate apneic 05/31/14 Yes nalbuphine HCl Allergy Intermediate Tachycardia, confusion, hallucinations, nervous 05/31/14 Yes I S O L A T I O N *CONTACT* Allergy Unknown 05/03/16 Yes MEDS Medications: Current Medications Medications (Trade) Dose Ordered Sig/Cha Start Time Stop Time Status Last Admin Dose Admin Amiodarone HCl (Cordarone) 200 mg DAILY 10/27/16 09:00 10/30/16 09:16 200 MG Amylase/Lipase/ Protease (Zenpep 10,000) 2 cap TIDWMEALS 10/29/16 12:00 10/30/16 17:09 2 CAP Apixaban (Eliquis) 2.5 mg BID 10/27/16 11:00 10/30/16 20:18 2.5 MG Atenolol (Tenormin) 25 mg BID 10/26/16 21:00 10/30/16 20:18 25 MG Diazepam (Valium) 10 mg QID 10/29/16 17:00 10/30/16 20:19 10 MG Fentanyl (Duragesic 50mcg/ Hr Patch) 1 patch Q3DAYS 10/29/16 09:00 10/29/16 09:36 1 PATCH Fentanyl Citrate (Fentanyl 2ml Vial) 50 mcg PRN Q2HR PRN 10/26/16 16:45 10/27/16 16:44 DC Info (Anti-Coagulation Monitoring By Pharmacy) 1 each PRN DAILY PRN 10/27/16 10:45 Isosorbide Mononitrate (Imdur) 30 mg DAILY 10/27/16 09:00 10/30/16 09:17 30 MG Lisinopril (Prinivil) 10 mg DAILY 10/27/16 09:00 10/30/16 09:17 10 MG Nitroglycerin (Nitrostat) 0.4 mg PRN Q5MIN PRN 10/26/16 20:30 Nitroglycerin/ Dextrose 250 ml @ 3 mls/hr 1X ONCE 10/26/16 16:15 10/30/16 03:34 DC Non-Formulary Medication 50 mg TID PRN 10/26/16 20:30 UNV Ondansetron HCl (Zofran Odt) 4 mg PRN Q6HRS PRN 10/26/16 20:30 10/31/16 05:55 4 MG Ondansetron HCl (Zofran) 4 mg PRN Q8HRS PRN 10/26/16 16:45 10/27/16 16:44 DC Oxycodone/ Acetaminophen (Percocet 10/325) 1 tab PRN QID PRN 10/26/16 20:30 10/31/16 05:55 1 TAB Pantoprazole Sodium (Protonix) 40 mg DAILYAC 10/29/16 16:30 10/31/16 05:55 40 MG Regadenoson (Lexiscan) 0.4 mg 1X ONCE 10/29/16 09:30 10/29/16 09:31 DC 10/29/16 11:18 0.4 MG Rivaroxaban (Xarelto) 15 mg DAILYWSUP 10/27/16 17:00 UNV Ropinirole HCl (Requip) 0.25 mg QHS 10/26/16 21:00 10/30/16 20:18 0.25 MG Sodium Chloride 1,000 ml @ 50 mls/hr Q20H 10/26/16 20:30 10/30/16 20:19 50 MLS/HR Sodium Chloride (Normal Saline Flush) 10 ml QSHIFT PRN 10/26/16 16:15 MILDRED CLAYTON MD Oct 31, 2016 08:20
[2016-10-31] MEDS: LIPASE/PROTEAS/AMYLAS 10/34/55 CAPSULE.DR. PO SCH ×3 (08:59→17:03)
[2016-10-31] MEDS: AMIODARONE HCL 200 MG TABLET. PO SCH (09:01)
[2016-10-31] MEDS: ISOSORBIDE MONONITRATE ER 30 MG TAB.ER.24H PO SCH (09:01)
[2016-10-31] MEDS: APIXABAN 2.5 MG TABLET. PO SCH ×2 (09:01→22:08)
[2016-10-31] MEDS: LISINOPRIL 10 MG TABLET PO SCH (09:02)
[2016-10-31] MEDS: ATENOLOL 25 MG TABLET. PO SCH ×2 (09:02→22:09)
[2016-10-31] MEDS: diazePAM 5 MG TABLET PO SCH ×4 (09:02→22:08)
--- NOTE | 2016-10-31 10:03 | PDOC ---
Subjective: Subjective: Headache, blurry vision. Just started, morning meds given ~20 min ago. Daughter feels symptoms related to pantoprazole. Objective: Vital Signs: Vital Signs Date Time Temp Pulse Resp B/P (MAP) Pulse Ox O2 Delivery O2 Flow Rate FiO2 10/31/16 09:02 65 168/59 10/31/16 07:00 97.7 18 97 Room Air 97.7 10/31/16 06:42 2.0 PE: GEN: NAD LUNGS: CTAB HEART: RRR ABD: S/ND/NT NEURO/PSYCH: A & O 3, not as talkative today A/P: GERD/dyspepsia/abd pain - none today -takes viscous lidocaine and Tums PRN QHS at home, started PPI here 6/5 Headache, blurry vision, falls -- D/w RN - pantoprazole given during rivet passer (before 7:00 a.m.) ?symptoms 2/ [address] Covarrubias[address] SHEYLA HAMILTON Oct 31, 2016 10:03
[2016-10-31] MEDS ORDERED: IOHEXOL 300 MG/ML 50 ML VIAL. ONE (10:22)
[2016-10-31 10:30] VITALS: BP 144/55
[2016-10-31] MEDS ORDERED: GADOBUTROL 7.5 MMOL/7.5 ML VIAL ONE (10:30)
--- NOTE | 2016-10-31 10:59 | PDOC ---
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 No apparent complication. Disposition Disposition From IR return to [facility]. OK to use Power Port for blood draws and infusions. Full report to follow. NIMA GONZALEZ MD Oct 31, 2016 10:59
[2016-10-31] MEDS ORDERED: GADOBUTROL 7.5 MMOL/7.5 ML VIAL IV ONE (11:00)
[2016-10-31 11:25] LABS: CREATININE 1.4 mg/dL (0.6-1.0); GFR 36.3; POTASSIUM 4.3 mmol/L (3.5-5.1)
--- NOTE | 2016-10-31 13:49 | RAD ---
Fluoroscopy guided left subclavian tunneled power port check Indication: 81-year-old female with indwelling left subclavian PowerPort. By history, there is difficulty aspirating blood from the port. Port check has been requested. Fluoroscopy time: 0.3 minutes Kerma-area Product: 5 Gycm2 Contrast material: 7 cc gadolinium Anesthesia: None Procedure: Informed consent was obtained from the patient. She was placed supine on the angiography table. Preliminary physical examination revealed a left chest power port, which had been previously accessed with a Allison needle. There was no evidence of pocket or tunnel infection. Preliminary fluoroscopic evaluation revealed intact power port, with its tip projected over expected location of upper superior vena cava. Using aseptic technique, the port was documented to aspirate normally, at least with the patient in the supine position. Using aseptic technique, a small amount of gadolinium was then slowly injected through the Allison needle. This resulted in contrast opacification of the power port body and catheter. There was no evidence of catheter fracture or perforation. A more forceful injection of gadolinium was then performed, and DSA images were obtained over chest. Those images confirmed a widely patent power port system, without obstructing pericatheter thrombus or fibrin sheath. Patient tolerated the procedure well without apparent complication. Impression: Essentially unremarkable fluoroscopy guided power port check, with gadolinium injection. The power port is intact, lies in satisfactory position, is widely patent, and flushes and aspirates normally.
[2016-10-31 14:30] VITALS: BP 122/60
[2016-10-31 16:26] LABS: BILIRUBIN,URINE NEGATIVE (NEG); GLUCOSE,URINE NEGATIVE (NEG); NITRITE,URINE POSITIVE (NEG); PROTEIN,URINE NEGATIVE (NEG-TRACE); UROBILINOGEN,URINE 0.2 mg/dL (0.2 mg/dL)
[2016-10-31 16:33] LABS: BACTERIA,URINE MANY /HPF (0-FEW); RBC,URINE 0 /HPF (0-2); SQUAMOUS EPITHELIAL CELL,UR OCC /LPF; WBC,URINE 20-40 /HPF (0-4)
[2016-10-31] MEDS: IV 1/2 NORMAL SALINE 1,000 ML IV SCH (17:02)
--- NOTE | 2016-10-31 18:22 | PDOC ---
Provider Note Provider Note Provider Note RENAL F/U : ELISEO S : Some dysuria last night. Feels better. No abd pain. O : VSS Afebrile. Neck : Supple Lungs : Non labored. CVS : RRR Abd : Benign in appearance, without distention. Ext : No edema Neuro : Awake. Labs reviewed. A/P : ARF/ATN HTN w CKD CKD II Doing Ok Cr stable. UOP fairly good. Supportive care. CPM. SEAN GOMES MD Oct 31, 2016 18:22
[2016-10-31 19:00] VITALS: BP 122/52
--- NOTE | 2016-10-31 21:20 | PDOC ---
PROGRESS NOTES Subjective Subjective The patient is very weak. No falls today. No cardiac complaints. Objective Objective Vital Signs Date Time Temp Pulse Resp B/P (MAP) Pulse Ox O2 Delivery O2 Flow Rate FiO2 10/31/16 19:00 97.9 65 18 122/52 (75) 95 Room Air 97.9 10/31/16 14:04 2.0 Intake and Output 10/31/16 07:00 Intake Total 3500 ml Output Total 800 ml Balance 2700 ml Intake Oral 2500 ml IV Total 1000 ml Output Urine Total 800 ml # Voids 4 # Bowel Movements 1 Physical Exam Physical Exam No changes in cardiac exam Assessment Assessment The patient appears to be compensated cardiac-quintero at this time. I agree with present plan. Comment Review of Relevant I have reviewed the following items alison (where applicable) has been applied. Labs Laboratory Tests Test 10/30/16 07:05 10/31/16 11:00 10/31/16 15:00 Sodium Level 145 mmol/L (136-145) 145 mmol/L (136-145) Potassium Level 4.5 mmol/L (3.5-5.1) 4.3 mmol/L (3.5-5.1) Chloride Level 115 mmol/L (98-107) 113 mmol/L (98-107) Carbon Dioxide Level 22 mmol/L (21-32) 25 mmol/L (21-32) Anion Gap 8 (6-14) 7 (6-14) Blood Urea Nitrogen 26 mg/dL (7-20) 18 mg/dL (7-20) Creatinine 1.3 mg/dL (0.6-1.0) 1.4 mg/dL (0.6-1.0) Estimated GFR (Cockcroft-Gault) 39.5 36.3 Glucose Level 105 mg/dL (70-99) 107 mg/dL (70-99) Calcium Level 8.4 mg/dL (8.5-10.1) 8.0 mg/dL (8.5-10.1) Urine Collection Type Unknown Urine Color Yellow Urine Clarity Clear Urine pH 8.0 Urine Specific [place] 1.020 Urine Protein Negative mg/dL (NEG-TRACE) Urine Glucose (UA) Negative mg/dL (NEG) Urine Ketones (Stick) Negative mg/dL (NEG) Urine Blood Negative (NEG) Urine Nitrite Positive (NEG) Urine Bilirubin Negative (NEG) Urine Urobilinogen Dipstick 0.2 mg/dL (0.2 mg/dL) Urine Leukocyte Esterase Moderate (NEG) Urine RBC 0 /HPF (0-2) Urine WBC 20-40 /HPF (0-4) Urine Squamous Epithelial Cells Occ /LPF Urine Bacteria Many /HPF (0-FEW) Laboratory Tests Test 10/31/16 11:00 10/31/16 15:00 Sodium Level 145 mmol/L (136-145) Potassium Level 4.3 mmol/L (3.5-5.1) Chloride Level 113 mmol/L (98-107) Carbon Dioxide Level 25 mmol/L (21-32) Anion Gap 7 (6-14) Blood Urea Nitrogen 18 mg/dL (7-20) Creatinine 1.4 mg/dL (0.6-1.0) Estimated GFR (Cockcroft-Gault) 36.3 Glucose Level 107 mg/dL (70-99) Calcium Level 8.0 mg/dL (8.5-10.1) Urine Collection Type Unknown Urine Color Yellow Urine Clarity Clear Urine pH 8.0 Urine Specific [place] 1.020 Urine Protein Negative mg/dL (NEG-TRACE) Urine Glucose (UA) Negative mg/dL (NEG) Urine Ketones (Stick) Negative mg/dL (NEG) Urine Blood Negative (NEG) Urine Nitrite Positive (NEG) Urine Bilirubin Negative (NEG) Urine Urobilinogen Dipstick 0.2 mg/dL (0.2 mg/dL) Urine Leukocyte Esterase Moderate (NEG) Urine RBC 0 /HPF (0-2) Urine WBC 20-40 /HPF (0-4) Urine Squamous Epithelial Cells Occ /LPF Urine Bacteria Many /HPF (0-FEW) Microbiology 10/26/16 Urine Culture - Final, Complete 10/26/16 Urine Culture Result 1 (ELOISE) - Final, Complete 10/26/16 Urine Culture Result 2 (ELOISE) - Final, Complete 10/26/16 Antimicrobic Susceptibility - Final, Complete Medications Current Medications Nitroglycerin (Nitrostat) 0.4 mg PRN Q5MIN PRN SL CP RATING > 06/05; Start at 16:15; Stop 10/26/16 at 20:42; Status DC Nitroglycerin/ Dextrose 250 ml @ 3 mls/hr 1X ONCE IV ; Start 10/26/16 at 16:15; Stop 10/30/16 at 03:34; Status DC Sodium Chloride 1,000 ml @ 1,000 mls/hr Q1H IV Last administered on 10/26/16 16:31; Start 10/26/16 at 16:30; Stop 10/26/16 at 17:29; Status DC Sodium Chloride (Normal Saline Flush) 10 ml QSHIFT PRN IV AFTER MEDS AND BLOOD DRAWS; Start 10/26/16 at 16:15 Ondansetron HCl (Zofran) 4 mg PRN Q8HRS PRN IV NAUSEA/VOMITING; Start 10/26/16 at 16:45; Stop 10/27/16 at 16:44; Status DC Fentanyl Citrate (Fentanyl 2ml Vial) 50 mcg PRN Q2HR PRN IV PAIN; Start at 16:45; Stop 10/27/16 at 16:44; Status DC Sodium Chloride 1,000 ml @ 100 mls/hr Q10H IV Last administered on 10/26/16 18 :08; Start 10/26/16 at 16:43; Stop 10/27/16 at 16:42; Status DC Nitroglycerin (Nitrostat) 0.4 mg PRN Q5MIN PRN SL CHEST PAIN; Start 10/26/16 at 16:45; Stop 10/26/16 at 20:42; Status DC Atenolol (Tenormin) 25 mg BID PO Last administered on 10/31/16 09:02; Start 10/26/16 at 21:00 Fentanyl (Duragesic 50mcg/ Hr Patch) 1 patch Q3DAYS TD ; Start 10/27/16 at 09:00 ; Stop 10/27/16 at 09:00; Status DC Isosorbide Mononitrate (Imdur) 30 mg DAILY PO Last administered on 10/31/16 09: 01; Start 10/27/16 at 09:00 Lisinopril (Prinivil) 10 mg DAILY PO Last administered on 10/31/16 09:02; Start 10/27/16 at 09:00 Nitroglycerin (Nitrostat) 0.4 mg PRN Q5MIN PRN SL CHEST PAIN; Start 10/26/16 at 20:30 Ondansetron HCl (Zofran Odt) 4 mg PRN Q6HRS PRN PO NAUSEA/VOMITING Last administered on 10/31/16 20:44; Start 10/26/16 at 20:30 Oxycodone/ Acetaminophen (Percocet 10/325) 1 tab PRN QID PRN PO PAIN Last administered on 10/31/16 14:04; Start 10/26/16 at 20:30 Non-Formulary Medication 50 mg TID PRN PO PAIN; Start 10/26/16 at 20:30; Status UNV Rivaroxaban (Xarelto) 15 mg DAILYWSUP PO ; Start 10/27/16 at 17:00; Status UNV Ropinirole HCl (Requip) 0.25 mg QHS PO Last administered on 10/30/16 20:18; Start 10/26/16 at 21:00 Amiodarone HCl (Cordarone) 200 mg DAILY PO Last administered on 10/31/16 09:01 ; Start 10/27/16 at 09:00 Sodium Chloride 1,000 ml @ 50 mls/hr Q20H IV Last administered on 10/31/16 17: 02; Start 10/26/16 at 20:30 Fentanyl (Duragesic 50mcg/ Hr Patch) 1 patch Q3DAYS TD Last administered on 10/29 09:36; Start 10/29/16 at 09:00 Apixaban (Eliquis) 2.5 mg BID PO Last administered on 10/31/16 09:01; Start 10/27/16 at 11:00 Info (Anti-Coagulation Monitoring By Pharmacy) 1 each PRN DAILY PRN MC SEE COMMENTS; Start 10/27/16 at 10:45 Regadenoson (Lexiscan) 0.4 mg 1X ONCE IV Last administered on 10/29/16 11:18; Start 10/29/16 at 09:30; Stop 10/29/16 at 09:31; Status DC Amylase/Lipase/ Protease (Zenpep 10,000) 2 cap TIDWMEALS PO Last administered on 10/31/16 17:03; Start 10/29/16 at 12:00 Diazepam (Valium) 10 mg QID PO Last administered on 10/31/16 17:02; Start at 17:00 Pantoprazole Sodium (Protonix) 40 mg DAILYAC PO Last administered on 6/7/17at 05:55; Start 10/29/16 at 16:30 Iohexol (Omnipaque 300 Mg/ml) 50 ml STK-MED ONCE .ROUTE ; Start 10/31/16 at 10:22 ; Stop 10/31/16 at 10:23; Status DC Gadobutrol (Gadavist) 7.5 mmol STK-MED ONCE .ROUTE ; Start 10/31/16 at 10:30; Stop 10/31/16 at 10:31; Status DC Gadobutrol (Gadavist) 7 mmol 1X ONCE IV Last administered on 10/31/16t 10:48; Start 10/31/16 at 11:00; Stop 10/31/16 at 11:01; Status DC Neomycin/ Polymyxin/ Bacitracin (Triple Antibiotic Ointment) 1 pkt DAILY TP ; Start 11/01/16 at 09:00 Active Scripts Active Reported Amiodarone Hcl 200 Mg Tablet 1 Tab PO DAILY Lasix (Furosemide) 20 Mg Tablet 0.5 Tab PO BID Xarelto (Rivaroxaban) 20 Mg Tablet 20 Mg PO DAILY Isosorbide Mononitrate Er (Isosorbide Mononitrate) 60 Mg Tab.er.24h 1 Tab PO DAILY Requip (Ropinirole Hcl) 0.5 Mg Tablet 0.25 Tab PO HS NEXT DOSE: 04/23/15 EVENING Demerol (Meperidine Hcl) 50 Mg Tablet 50 Mg PO TID PRN Percocet 10-325 Mg Tablet (Oxycodone/Acetaminophen) 1 Each Tablet 1 Tab PO QID PRN NEXT DOSE: 04/23/15 AFTERNOON FENTANYL 50mcg/hr (Fentanyl) 1 Each Patch.td72 1 Patch TP Q3DAYS NEXT DOSE: 04/25/15 CHANGE PATCH Nitrostat (Nitroglycerin) 0.4 Mg Tab.subl 0.4 Mg SL PRN Q5MIN PRN Zofran Odt (Ondansetron) 4 Mg Tab.rapdis 4 Mg PO Q6HRS PRN Lisinopril 20 Mg Tablet 1 Tab PO DAILY NEXT DOSE: 04/24/15 AM Potassium Chloride 10 Meq Tablet.er 1 Tab PO DAILY NEXT DOSE: 04/24/15 AM Valium (Diazepam) 10 Mg Tablet 10 Mg PO QID NEXT DOSE: 04/23/15 2 PM Tenormin (Atenolol) 50 Mg Tablet 50 Mg PO BID NEXT DOSE: 04/23/15 PM Vitals/I & O Vital Sign - Last 24 Hours 10/30/16 10/31/16 10/31/16 10/31/16 23:00 03:00 05:55 06:42 Temp 98.3 98.2 98.3 98.2 Pulse 67 70 Resp 20 20 18 B/P (MAP) 135/59 (84) 143/61 (88) Pulse Ox 90 90 90 O2 Delivery Room Air Room Air Room Air O2 Flow Rate 2.0 2.0 10/31/16 10/31/16 10/31/16 10/31/16 07:00 08:00 09:01 09:01 Temp 97.7 97.7 Pulse 65 65 65 Resp 18 B/P (MAP) 168/59 (95) 168/59 168/59 Pulse Ox 97 O2 Delivery Room Air Room Air 10/31/16 10/31/16 10/31/16 10/31/16 09:02 09:02 10:30 14:04 Temp 97.7 97.7 Pulse 65 65 62 Resp 18 20 B/P (MAP) 168/59 168/59 144/55 (84) Pulse Ox 92 92 O2 Delivery Room Air Room Air O2 Flow Rate 2.0 10/31/16 10/31/16 10/31/16 14:30 15:04 19:00 Temp 97.7 97.9 97.7 97.9 Pulse 66 65 Resp 18 20 18 B/P (MAP) 122/60 (80) 122/52 (75) Pulse Ox 91 92 95 O2 Delivery Room Air Room Air Room Air Intake and Output 10/30/16 10/30/16 10/31/16 15:00 23:00 07:00 Intake Total 400 ml 1700 ml 1400 ml Output Total 200 ml 600 ml Balance 200 ml 1700 ml 800 ml AUSTIN SILVERMAN MD Oct 31, 2016 21:20
[2016-10-31] MEDS: rOPINIRole 0.25 MG TABLET. PO SCH (22:08)
--- NOTE | 2016-10-31 22:25 | OP ---
DATE OF SURGERY: PROCEDURE PERFORMED: Skin biopsy. DESCRIPTION OF PROCEDURE: After informed signed consent, prepped right hip with Betadine and alcohol. Local, 1% lidocaine with epinephrine. 4 mm punch biopsy done. 4-0 nylon sutures done. Antibiotic ointment and Band-Aid. Orders written RIVERA CAAL MD DR: LAYNE/joel JOB#: [id number] / [id number]
[2016-10-31 23:00] VITALS: BP 147/63
[2016-11-01 03:00] VITALS: BP 146/59
[2016-11-01] MEDS: oxyCODONE/APAP 10/325 1 TAB TABLET PO PRN (03:48)
[2016-11-01 05:30] LABS: CREATININE 1.2 mg/dL (0.6-1.0); GFR 43.3; POTASSIUM 4.4 mmol/L (3.5-5.1)
[2016-11-01] MEDS: ONDANSETRON ODT 4 MG TAB.RAPDIS. PO PRN (06:58)
[2016-11-01] MEDS: PANTOPRAZOLE 40 MG TABLET.DR. PO SCH (06:58)
[2016-11-01 07:00] VITALS: BP 152/61
[2016-11-01] MEDS: APIXABAN 2.5 MG TABLET. PO SCH ×2 (08:08→21:34)
[2016-11-01] MEDS: LIPASE/PROTEAS/AMYLAS 10/34/55 CAPSULE.DR. PO SCH ×3 (08:08→17:07)
[2016-11-01] MEDS: fentaNYL 50MCG/HR PATCH 1 PATCH PATCH.TD72 TD SCH (08:10)
[2016-11-01] MEDS: diazePAM 5 MG TABLET PO SCH ×4 (08:12→21:34)
[2016-11-01] MEDS: LISINOPRIL 10 MG TABLET PO SCH (08:13)
[2016-11-01] MEDS: AMIODARONE HCL 200 MG TABLET. PO SCH (08:13)
[2016-11-01] MEDS: ATENOLOL 25 MG TABLET. PO SCH ×2 (08:14→21:34)
[2016-11-01] MEDS: ISOSORBIDE MONONITRATE ER 30 MG TAB.ER.24H PO SCH (08:14)
--- NOTE | 2016-11-01 08:38 | PDOC ---
GENERAL General: vss and afebrile. vomited multiple times during night and has puke medley in hand during exam. awake and alert. exam stable. creatinine down to 1.2. biopsy of right hip lesion done by dermatology yesterday and will await path. otherwise same. port working fine by IR. Problems: VITAL SIGNS Vital Signs: Vital Signs Date Time Temp Pulse Resp B/P (MAP) Pulse Ox O2 Delivery O2 Flow Rate FiO2 11/01/16 08:14 63 152/61 11/01/16 08:10 93 Nasal Cannula 2.0 11/01/16 07:00 97.6 18 97.6 I & O I & O Intake and Output 11/01/16 07:00 Intake Total 740 ml Output Total 825 ml Balance -85 ml Intake Oral 740 ml Output Urine Total 825 ml ALLERGIES Allergies: Allergies Coded Allergies Type Severity Reaction Last Updated Verified diphenhydramine Allergy Severe Shortness of Air 10/26/15 Yes NSAIDS (Non-Steroidal Anti-Inflamma Allergy Intermediate All except Feldene 05/31/14 Yes Pentazocine Lactate Allergy Intermediate Blood pressure increase, chest pain, heart races, itching. 05/31/14 Yes Trimethobenzamide HCl Allergy Intermediate Severe muscle spasms 05/31/14 Yes acetaminophen Allergy Intermediate Shallow breathing, slow heart rate, stomach pain 05/31/14 Yes adhesive Allergy Intermediate rash--"will explain." 05/31/14 Yes butorphanol tartrate Allergy Intermediate Hallucinations, PALOMARES, anxiety, rash 05/31/14 Yes carisoprodol Allergy Intermediate Fainting, fast heart rate, light-headed Yes chlorzoxazone Allergy Intermediate Nausea, dizzy, rash, feels like I might pass out 05/31/14 Yes codeine Allergy Intermediate Shallow breathing, vomiting, severe PALOMARES, bradycardia, itching 05/31/14 Yes codeine phosphate Allergy Intermediate Shallow breathing, slow heart rate, stomach pain 05/31/14 Yes cyclobenzaprine HCl Allergy Intermediate Chest pain,PALOMARES, fast heart rate, nervous 05/31/14 Yes erythromycin base Allergy Intermediate Fainting, fast/irreg HR, rash, itiching 05/31/14 Yes hydromorphone HCl Allergy Intermediate Apneic 05/31/14 Yes iodine Allergy Intermediate Itching, skin rash, hives 05/31/14 Yes ketorolac tromethamine Allergy Intermediate Chest pain, sudden severe PALOMARES Yes levofloxacin Allergy Intermediate Severe dizziness, heart races, itching, stomach pain 05/31/14 Yes midazolam HCl Allergy Intermediate Slow heart rate, affects bld pressure, mild rash 05/31/14 Yes morphine Allergy Intermediate apneic 05/31/14 Yes nalbuphine HCl Allergy Intermediate Tachycardia, confusion, hallucinations, nervous 05/31/14 Yes I S O L A T I O N *CONTACT* Allergy Unknown 05/03/16 Yes MEDS Medications: Current Medications Medications (Trade) Dose Ordered Sig/Cha Start Time Stop Time Status Last Admin Dose Admin Amiodarone HCl (Cordarone) 200 mg DAILY 10/27/16 09:00 11/01/16 08:13 200 MG Amylase/Lipase/ Protease (Zenpep 10,000) 2 cap TIDWMEALS 10/29/16 12:00 11/01/16 08:08 2 CAP Apixaban (Eliquis) 2.5 mg BID 10/27/16 11:00 11/01/16 08:08 2.5 MG Atenolol (Tenormin) 25 mg BID 10/26/16 21:00 11/01/16 08:14 25 MG Diazepam (Valium) 10 mg QID 10/29/16 17:00 11/01/16 08:12 10 MG Fentanyl (Duragesic 50mcg/ Hr Patch) 1 patch Q3DAYS 10/29/16 09:00 11/01/16 08:10 1 PATCH Fentanyl Citrate (Fentanyl 2ml Vial) 50 mcg PRN Q2HR PRN 10/26/16 16:45 10/27/16 16:44 DC Gadobutrol (Gadavist) 7 mmol 1X ONCE 10/31/16 11:00 10/31/16 11:01 DC 10/31/16 10:48 7 MMOL Info (Anti-Coagulation Monitoring By Pharmacy) 1 each PRN DAILY PRN 10/27/16 10:45 Iohexol (Omnipaque 300 Mg/ml) 50 ml STK-MED ONCE 10/31/16 10:22 10/31/16 10:23 DC Isosorbide Mononitrate (Imdur) 30 mg DAILY 10/27/16 09:00 11/01/16 08:14 30 MG Lisinopril (Prinivil) 10 mg DAILY 10/27/16 09:00 11/01/16 08:13 10 MG Neomycin/ Polymyxin/ Bacitracin (Triple Antibiotic Ointment) 1 pkt DAILY 11/01/16 09:00 Nitroglycerin (Nitrostat) 0.4 mg PRN Q5MIN PRN 10/26/16 20:30 Nitroglycerin/ Dextrose 250 ml @ 3 mls/hr 1X ONCE 10/26/16 16:15 10/30/16 03:34 DC Non-Formulary Medication 50 mg TID PRN 10/26/16 20:30 UNV Ondansetron HCl (Zofran Odt) 4 mg PRN Q6HRS PRN 10/26/16 20:30 11/01/16 06:58 4 MG Ondansetron HCl (Zofran) 4 mg PRN Q8HRS PRN 10/26/16 16:45 10/27/16 16:44 DC Oxycodone/ Acetaminophen (Percocet 10/325) 1 tab PRN QID PRN 10/26/16 20:30 11/01/16 03:48 1 TAB Pantoprazole Sodium (Protonix) 40 mg DAILYAC 10/29/16 16:30 11/01/16 06:58 40 MG Regadenoson (Lexiscan) 0.4 mg 1X ONCE 10/29/16 09:30 10/29/16 09:31 DC 10/29/16 11:18 0.4 MG Rivaroxaban (Xarelto) 15 mg DAILYWSUP 10/27/16 17:00 UNV Ropinirole HCl (Requip) 0.25 mg QHS 10/26/16 21:00 10/31/16 22:08 0.25 MG Sodium Chloride 1,000 ml @ 50 mls/hr Q20H 10/26/16 20:30 10/31/16 17:02 50 MLS/HR Sodium Chloride (Normal Saline Flush) 10 ml QSHIFT PRN 10/26/16 16:15 LAB Lab: Laboratory Tests Test 10/31/16 11:00 10/31/16 15:00 11/01/16 05:00 Sodium Level 145 mmol/L (136-145) 144 mmol/L (136-145) Potassium Level 4.3 mmol/L (3.5-5.1) 4.4 mmol/L (3.5-5.1) Chloride Level 113 mmol/L (98-107) 112 mmol/L (98-107) Carbon Dioxide Level 25 mmol/L (21-32) 25 mmol/L (21-32) Anion Gap 7 (6-14) 7 (6-14) Blood Urea Nitrogen 18 mg/dL (7-20) 16 mg/dL (7-20) Creatinine 1.4 mg/dL (0.6-1.0) 1.2 mg/dL (0.6-1.0) Estimated GFR (Cockcroft-Gault) 36.3 43.3 Glucose Level 107 mg/dL (70-99) 94 mg/dL (70-99) Calcium Level 8.0 mg/dL (8.5-10.1) 8.0 mg/dL (8.5-10.1) Urine Collection Type Unknown Urine Color Yellow Urine Clarity Clear Urine pH 8.0 Urine Specific [place] 1.020 Urine Protein Negative mg/dL (NEG-TRACE) Urine Glucose (UA) Negative mg/dL (NEG) Urine Ketones (Stick) Negative mg/dL (NEG) Urine Blood Negative (NEG) Urine Nitrite Positive (NEG) Urine Bilirubin Negative (NEG) Urine Urobilinogen Dipstick 0.2 mg/dL (0.2 mg/dL) Urine Leukocyte Esterase Moderate (NEG) Urine RBC 0 /HPF (0-2) Urine WBC 20-40 /HPF (0-4) Urine Squamous Epithelial Cells Occ /LPF Urine Bacteria Many /HPF (0-FEW) MILDRED CLAYTON MD Nov 01, 2016 08:38
[2016-11-01] MEDS ORDERED: [UNRECOGNIZED DRUG - MIXTURE] PO PRN (08:45)
[2016-11-01] MEDS: NEOMY/BACITR/POLYMYXIN OINT PACKET. TP SCH (09:40)
[2016-11-01 11:00] VITALS: BP 133/62
[2016-11-01] MEDS: ANTI-COAG MONITOR BY PHARMACY. MC PRN (12:01)
[2016-11-01] MEDS: IV 1/2 NORMAL SALINE 1,000 ML IV SCH (13:29)
[2016-11-01] MEDS ORDERED: BISACODYL 5 MG TABLET.DR. PO PRN (13:30)
[2016-11-01] MEDS ORDERED: POLYETHYLENE GLYCOL 3350 17 GM PACKET. PO PRN (13:30)
--- NOTE | 2016-11-01 13:32 | PDOC ---
Subjective: Subjective: Terrible night w/ abd pain - epigastrium spreading down. Says she didn't tell the nurse she was constipated but is feeling that way. Takes Dulcolax at home. Had heartburn last night. Objective: Objective: D/w RN - nausea, eating about 40% of meals, c/o constipation. Vital Signs: Vital Signs Date Time Temp Pulse Resp B/P (MAP) Pulse Ox O2 Delivery O2 Flow Rate FiO2 11/01/16 12:10 91 Nasal Cannula 2.0 11/01/16 11:00 98.1 60 18 133/62 (85) 98.1 Labs: Laboratory Tests Test 10/31/16 15:00 11/01/16 05:00 Urine Collection Type Unknown Urine Color Yellow Urine Clarity Clear Urine pH 8.0 Urine Specific [place] 1.020 Urine Protein Negative mg/dL Urine Glucose (UA) Negative mg/dL Urine Ketones (Stick) Negative mg/dL Urine Blood Negative Urine Nitrite Positive Urine Bilirubin Negative Urine Urobilinogen Dipstick 0.2 mg/dL Urine Leukocyte Esterase Moderate Urine RBC 0 /HPF Urine WBC 20-40 /HPF Urine Squamous Epithelial Cells Occ /LPF Urine Bacteria Many /HPF Sodium Level 144 mmol/L Potassium Level 4.4 mmol/L Chloride Level 112 mmol/L Carbon Dioxide Level 25 mmol/L Anion Gap 7 Blood Urea Nitrogen 16 mg/dL Creatinine 1.2 mg/dL Estimated GFR (Cockcroft-Gault) 43.3 Glucose Level 94 mg/dL Calcium Level 8.0 mg/dL PE: GEN: NAD, sitting up in bed w/ lunch tray LUNGS: CTAB HEART: RRR ABD: epigastric discomfort NEURO/PSYCH: A & O 3 A/P: GERD/dyspepsia -was taking viscous lidocaine and Tums at home, started PPI here on 6/5 Epigastric pain, decreased appetite Constipation -seems alternating bowel habits, note h/o ?pancreatic insufficiency and and collagenous colitis - diarrhea improved w/ pancreatic enzymes -- Will add Dulcolax and Miralax PRN. SHEYLA HAMILTON Nov 01, 2016 13:32
[2016-11-01 15:00] VITALS: BP 119/51
--- NOTE | 2016-11-01 15:41 | PDOC ---
PROGRESS NOTES Subjective Subjective Patient is very depressed and crying easily when she discussed her home situation with her working 2 jobs at the age of 84 and her daughter being sick and terminal. Overwhelmed over not being able to clean her house and does not have anyone to help her. Very apologetic for every remark. She is very weak and cannot get up and around very well. Objective Objective Vital Signs Date Time Temp Pulse Resp B/P (MAP) Pulse Ox O2 Delivery O2 Flow Rate FiO2 11/01/16 12:10 91 Nasal Cannula 2.0 11/01/16 11:00 98.1 60 18 133/62 (85) 98.1 Intake and Output 11/01/16 07:00 Intake Total 740 ml Output Total 825 ml Balance -85 ml Intake Oral 740 ml Output Urine Total 825 ml Physical Exam Physical Exam No significant changes in cardiac exam Assessment Assessment The patient appears to be very depressed and overwhelmed with worries. In her present condition I don't think that she can take care of herself at home and with her working 2 jobs and her daughter not in very good health I think that she may need significant assistance at home. She is not very happy with the current home health service that she is getting at this time. I will leave that up to Dr. Kramer as to what changes to do with the home health service as well as having frequent the come to visit her but I think she needs a lot of assistance and may need to also consider Meals on Wheels or something along those lines to help her when she goes home. If the situation is as difficult as she sees it may need to consider hospice care at home. I will leave that up to Dr. Kramer. Perhaps the patient may benefit from counseling from [facility]. Comment Review of Relevant I have reviewed the following items alison (where applicable) has been applied. Labs Laboratory Tests Test 10/31/16 11:00 10/31/16 15:00 11/01/16 05:00 Sodium Level 145 mmol/L (136-145) 144 mmol/L (136-145) Potassium Level 4.3 mmol/L (3.5-5.1) 4.4 mmol/L (3.5-5.1) Chloride Level 113 mmol/L (98-107) 112 mmol/L (98-107) Carbon Dioxide Level 25 mmol/L (21-32) 25 mmol/L (21-32) Anion Gap 7 (6-14) 7 (6-14) Blood Urea Nitrogen 18 mg/dL (7-20) 16 mg/dL (7-20) Creatinine 1.4 mg/dL (0.6-1.0) 1.2 mg/dL (0.6-1.0) Estimated GFR (Cockcroft-Gault) 36.3 43.3 Glucose Level 107 mg/dL (70-99) 94 mg/dL (70-99) Calcium Level 8.0 mg/dL (8.5-10.1) 8.0 mg/dL (8.5-10.1) Urine Collection Type Unknown Urine Color Yellow Urine Clarity Clear Urine pH 8.0 Urine Specific [place] 1.020 Urine Protein Negative mg/dL (NEG-TRACE) Urine Glucose (UA) Negative mg/dL (NEG) Urine Ketones (Stick) Negative mg/dL (NEG) Urine Blood Negative (NEG) Urine Nitrite Positive (NEG) Urine Bilirubin Negative (NEG) Urine Urobilinogen Dipstick 0.2 mg/dL (0.2 mg/dL) Urine Leukocyte Esterase Moderate (NEG) Urine RBC 0 /HPF (0-2) Urine WBC 20-40 /HPF (0-4) Urine Squamous Epithelial Cells Occ /LPF Urine Bacteria Many /HPF (0-FEW) Laboratory Tests Test 11/01/16 05:00 Sodium Level 144 mmol/L (136-145) Potassium Level 4.4 mmol/L (3.5-5.1) Chloride Level 112 mmol/L (98-107) Carbon Dioxide Level 25 mmol/L (21-32) Anion Gap 7 (6-14) Blood Urea Nitrogen 16 mg/dL (7-20) Creatinine 1.2 mg/dL (0.6-1.0) Estimated GFR (Cockcroft-Gault) 43.3 Glucose Level 94 mg/dL (70-99) Calcium Level 8.0 mg/dL (8.5-10.1) Microbiology 10/31/16 Urine Culture - Preliminary, Resulted 10/31/16 Urine Culture Result 1 (ELOISE) - Preliminary, Resulted Medications Current Medications Nitroglycerin (Nitrostat) 0.4 mg PRN Q5MIN PRN SL CP RATING > 06/05; Start at 16:15; Stop 10/26/16 at 20:42; Status DC Nitroglycerin/ Dextrose 250 ml @ 3 mls/hr 1X ONCE IV ; Start 10/26/16 at 16:15; Stop 10/30/16 at 03:34; Status DC Sodium Chloride 1,000 ml @ 1,000 mls/hr Q1H IV Last administered on 10/26/16 16:31; Start 10/26/16 at 16:30; Stop 10/26/16 at 17:29; Status DC Sodium Chloride (Normal Saline Flush) 10 ml QSHIFT PRN IV AFTER MEDS AND BLOOD DRAWS; Start 10/26/16 at 16:15 Ondansetron HCl (Zofran) 4 mg PRN Q8HRS PRN IV NAUSEA/VOMITING; Start 10/26/16 at 16:45; Stop 10/27/16 at 16:44; Status DC Fentanyl Citrate (Fentanyl 2ml Vial) 50 mcg PRN Q2HR PRN IV PAIN; Start at 16:45; Stop 10/27/16 at 16:44; Status DC Sodium Chloride 1,000 ml @ 100 mls/hr Q10H IV Last administered on 10/26/16 18 :08; Start 10/26/16 at 16:43; Stop 10/27/16 at 16:42; Status DC Nitroglycerin (Nitrostat) 0.4 mg PRN Q5MIN PRN SL CHEST PAIN; Start 10/26/16 at 16:45; Stop 10/26/16 at 20:42; Status DC Atenolol (Tenormin) 25 mg BID PO Last administered on 11/01/16 08:14; Start 10/26/16 at 21:00 Fentanyl (Duragesic 50mcg/ Hr Patch) 1 patch Q3DAYS TD ; Start 10/27/16 at 09:00 ; Stop 10/27/16 at 09:00; Status DC Isosorbide Mononitrate (Imdur) 30 mg DAILY PO Last administered on 11/01/16 08: 14; Start 10/27/16 at 09:00 Lisinopril (Prinivil) 10 mg DAILY PO Last administered on 11/01/16 08:13; Start 10/27/16 at 09:00 Nitroglycerin (Nitrostat) 0.4 mg PRN Q5MIN PRN SL CHEST PAIN; Start 10/26/16 at 20:30 Ondansetron HCl (Zofran Odt) 4 mg PRN Q6HRS PRN PO NAUSEA/VOMITING Last administered on 11/01/16 06:58; Start 10/26/16 at 20:30 Oxycodone/ Acetaminophen (Percocet 10/325) 1 tab PRN QID PRN PO PAIN Last administered on 11/01/16 03:48; Start 10/26/16 at 20:30 Non-Formulary Medication 50 mg TID PRN PO PAIN; Start 10/26/16 at 20:30; Status UNV Rivaroxaban (Xarelto) 15 mg DAILYWSUP PO ; Start 10/27/16 at 17:00; Status UNV Ropinirole HCl (Requip) 0.25 mg QHS PO Last administered on 10/31/16 22:08; Start 10/26/16 at 21:00 Amiodarone HCl (Cordarone) 200 mg DAILY PO Last administered on 11/01/16 08:13 ; Start 10/27/16 at 09:00 Sodium Chloride 1,000 ml @ 50 mls/hr Q20H IV Last administered on 11/01/16 13: 29; Start 10/26/16 at 20:30 Fentanyl (Duragesic 50mcg/ Hr Patch) 1 patch Q3DAYS TD Last administered on 11/01 08:10; Start 10/29/16 at 09:00 Apixaban (Eliquis) 2.5 mg BID PO Last administered on 11/01/16 08:08; Start 10/27/16 at 11:00 Info (Anti-Coagulation Monitoring By Pharmacy) 1 each PRN DAILY PRN MC SEE COMMENTS Last administered on 11/01/16 12:01; Start 10/27/16 at 10:45 Regadenoson (Lexiscan) 0.4 mg 1X ONCE IV Last administered on 10/29/16 11:18; Start 10/29/16 at 09:30; Stop 10/29/16 at 09:31; Status DC Amylase/Lipase/ Protease (Zenpep 10,000) 2 cap TIDWMEALS PO Last administered on 11/01/16 11:05; Start 10/29/16 at 12:00 Diazepam (Valium) 10 mg QID PO Last administered on 11/01/16 13:26; Start at 17:00 Pantoprazole Sodium (Protonix) 40 mg DAILYAC PO Last administered on 11/01/16 06:58; Start 10/29/16 at 16:30 Iohexol (Omnipaque 300 Mg/ml) 50 ml STK-MED ONCE .ROUTE ; Start 10/31/16 at 10:22 ; Stop 10/31/16 at 10:23; Status DC Gadobutrol (Gadavist) 7.5 mmol STK-MED ONCE .ROUTE ; Start 10/31/16 at 10:30; Stop 10/31/16 at 10:31; Status DC Gadobutrol (Gadavist) 7 mmol 1X ONCE IV Last administered on 10/31/16 10:48; Start 10/31/16 at 11:00; Stop 10/31/16 at 11:01; Status DC Neomycin/ Polymyxin/ Bacitracin (Triple Antibiotic Ointment) 1 pkt DAILY TP Last administered on 11/01/16 09:40; Start 11/01/16 at 09:00 Multi-Ingredient Mouthwash/Gargle (Magic Mouthwash) 10 ml PRN QID PRN PO MOUTH PAIN; Start 11/01/16 at 08:45 Bisacodyl (Dulcolax Tab) 5 mg PRN DAILY PRN PO CONSTIPATION; Start 11/01/16 at 13:30 Polyethylene Glycol (miraLAX PACKET) 17 gm PRN DAILY PRN PO CONSTIPATION; Start 11/01/16 at 13:30 Active Scripts Active Reported Amiodarone Hcl 200 Mg Tablet 1 Tab PO DAILY Lasix (Furosemide) 20 Mg Tablet 0.5 Tab PO BID Xarelto (Rivaroxaban) 20 Mg Tablet 20 Mg PO DAILY Isosorbide Mononitrate Er (Isosorbide Mononitrate) 60 Mg Tab.er.24h 1 Tab PO DAILY Requip (Ropinirole Hcl) 0.5 Mg Tablet 0.25 Tab PO HS NEXT DOSE: 04/23/15 EVENING Demerol (Meperidine Hcl) 50 Mg Tablet 50 Mg PO TID PRN Percocet 10-325 Mg Tablet (Oxycodone/Acetaminophen) 1 Each Tablet 1 Tab PO QID PRN NEXT DOSE: 04/23/15 AFTERNOON FENTANYL 50mcg/hr (Fentanyl) 1 Each Patch.td72 1 Patch TP Q3DAYS NEXT DOSE: 04/25/15 CHANGE PATCH Nitrostat (Nitroglycerin) 0.4 Mg Tab.subl 0.4 Mg SL PRN Q5MIN PRN Zofran Odt (Ondansetron) 4 Mg Tab.rapdis 4 Mg PO Q6HRS PRN Lisinopril 20 Mg Tablet 1 Tab PO DAILY NEXT DOSE: 04/24/15 AM Potassium Chloride 10 Meq Tablet.er 1 Tab PO DAILY NEXT DOSE: 04/24/15 AM Valium (Diazepam) 10 Mg Tablet 10 Mg PO QID NEXT DOSE: 04/23/15 2 PM Tenormin (Atenolol) 50 Mg Tablet 50 Mg PO BID NEXT DOSE: 04/23/15 PM Vitals/I & O Vital Sign - Last 24 Hours 10/31/16 10/31/16 10/31/16 10/31/16 19:00 20:00 22:09 22:09 Temp 97.9 97.9 Pulse 65 64 Resp 18 20 B/P (MAP) 122/52 (75) 129/43 Pulse Ox 95 95 O2 Delivery Room Air Nasal Cannula Nasal Cannula O2 Flow Rate 2.0 10/31/16 11/01/16 11/01/16 11/01/16 23:00 03:00 03:48 04:48 Temp 97.7 97.5 97.7 97.5 Pulse 63 62 Resp 18 18 18 18 B/P (MAP) 147/63 (91) 146/59 (88) Pulse Ox 92 93 93 93 O2 Delivery Room Air Room Air Nasal Cannula Nasal Cannula O2 Flow Rate 2.0 2.0 11/01/16 11/01/16 11/01/16 11/01/16 07:00 08:00 08:10 08:13 Temp 97.6 97.6 Pulse 63 63 Resp 18 B/P (MAP) 152/61 (91) 152/61 Pulse Ox 93 93 O2 Delivery Room Air Nasal Cannula Nasal Cannula O2 Flow Rate 2.0 2.0 11/01/16 11/01/16 11/01/16 11/01/16 08:13 08:14 08:14 11:00 Temp 98.1 98.1 Pulse 63 63 63 60 Resp 18 B/P (MAP) 152/61 152/61 152/61 133/62 (85) Pulse Ox 91 O2 Delivery Room Air 11/01/16 12:10 Pulse Ox 91 O2 Delivery Nasal Cannula O2 Flow Rate 2.0 Intake and Output 10/31/16 10/31/16 11/01/16 15:00 23:00 07:00 Intake Total 380 ml 360 ml Output Total 575 ml 250 ml Balance -195 ml 360 ml -250 ml AUSTIN SILVERMAN MD Nov 01, 2016 15:41
[2016-11-01 19:00] VITALS: BP 148/58
[2016-11-01] MEDS: rOPINIRole 0.25 MG TABLET. PO SCH (21:34)
[2016-11-01 22:51] VITALS: BP 138/55
--- NOTE | 2016-11-01 23:46 | PDOC ---
Provider Note Provider Note RENAL F/U : ELISEO S : No new issues or c/o No abd pain. O : VSS Afebrile. Neck : Supple Lungs : Non labored. CVS : RRR Abd : Benign in appearance, without distention. Ext : No edema Neuro : Awake. Labs reviewed. A/P : ARF/ATN HTN w CKD CKD II Doing Ok Cr now 1.2 UOP maintained. Supportive care. SEAN GOMES MD Nov 01, 2016 23:46
[2016-11-02] MEDS: oxyCODONE/APAP 10/325 1 TAB TABLET PO PRN ×4 (00:53→18:11)
[2016-11-02 03:00] VITALS: BP 146/59
[2016-11-02] MEDS: ONDANSETRON ODT 4 MG TAB.RAPDIS. PO PRN ×3 (06:04→18:09)
[2016-11-02] MEDS: PANTOPRAZOLE 40 MG TABLET.DR. PO SCH (06:05)
[2016-11-02 06:16] LABS: CALCIUM 7.7 mg/dL (8.5-10.1); CREATININE 1.2 mg/dL (0.6-1.0); GFR 43.3; POTASSIUM 4.4 mmol/L (3.5-5.1)
[2016-11-02 07:00] VITALS: BP 131/63
--- NOTE | 2016-11-02 08:23 | PDOC ---
GENERAL General: vss and afebrile. awake and alert. major complaints are vomiting most of night and dysuria. has > 100,000 gram negative rods on repeat ua and will use ertapenem to cover both bugs on initial urine culture that had <100,000 colony forming units of each. defer vomiting to GI and await final urine C&S. Problems: VITAL SIGNS Vital Signs: Vital Signs Date Time Temp Pulse Resp B/P (MAP) Pulse Ox O2 Delivery O2 Flow Rate FiO2 11/02/16 06:05 20 98 Nasal Cannula 2.0 11/02/16 03:00 97.9 65 146/59 (88) 97.9 I & O I & O Intake and Output 11/02/16 07:00 Intake Total 1600 ml Output Total 700 ml Balance 900 ml Intake Oral 600 ml IV Total 1000 ml Output Urine Total 700 ml # Voids 3 # Bowel Movements 2 ALLERGIES Allergies: Allergies Coded Allergies Type Severity Reaction Last Updated Verified diphenhydramine Allergy Severe Shortness of Air 10/26/15 Yes NSAIDS (Non-Steroidal Anti-Inflamma Allergy Intermediate All except Feldene 05/31/14 Yes Pentazocine Lactate Allergy Intermediate Blood pressure increase, chest pain, heart races, itching. 05/31/14 Yes Trimethobenzamide HCl Allergy Intermediate Severe muscle spasms 05/31/14 Yes acetaminophen Allergy Intermediate Shallow breathing, slow heart rate, stomach pain 05/31/14 Yes adhesive Allergy Intermediate rash--"will explain." 05/31/14 Yes butorphanol tartrate Allergy Intermediate Hallucinations, PALOMARES, anxiety, rash 05/31/14 Yes carisoprodol Allergy Intermediate Fainting, fast heart rate, light-headed Yes chlorzoxazone Allergy Intermediate Nausea, dizzy, rash, feels like I might pass out 05/31/14 Yes codeine Allergy Intermediate Shallow breathing, vomiting, severe PALOMARES, bradycardia, itching 05/31/14 Yes codeine phosphate Allergy Intermediate Shallow breathing, slow heart rate, stomach pain 05/31/14 Yes cyclobenzaprine HCl Allergy Intermediate Chest pain,PALOMARES, fast heart rate, nervous 05/31/14 Yes erythromycin base Allergy Intermediate Fainting, fast/irreg HR, rash, itiching 05/31/14 Yes hydromorphone HCl Allergy Intermediate Apneic 05/31/14 Yes iodine Allergy Intermediate Itching, skin rash, hives 05/31/14 Yes ketorolac tromethamine Allergy Intermediate Chest pain, sudden severe PALOMARES Yes levofloxacin Allergy Intermediate Severe dizziness, heart races, itching, stomach pain 05/31/14 Yes midazolam HCl Allergy Intermediate Slow heart rate, affects bld pressure, mild rash 05/31/14 Yes morphine Allergy Intermediate apneic 05/31/14 Yes nalbuphine HCl Allergy Intermediate Tachycardia, confusion, hallucinations, nervous 05/31/14 Yes I S O L A T I O N *CONTACT* Allergy Unknown 05/03/16 Yes MEDS Medications: Current Medications Medications (Trade) Dose Ordered Sig/Cha Start Time Stop Time Status Last Admin Dose Admin Amiodarone HCl (Cordarone) 200 mg DAILY 10/27/16 09:00 11/01/16 08:13 200 MG Amylase/Lipase/ Protease (Zenpep 10,000) 2 cap TIDWMEALS 10/29/16 12:00 11/01/16 17:07 2 CAP Apixaban (Eliquis) 2.5 mg BID 10/27/16 11:00 11/01/16 21:34 2.5 MG Atenolol (Tenormin) 25 mg BID 10/26/16 21:00 11/01/16 21:34 25 MG Bisacodyl (Dulcolax Tab) 5 mg PRN DAILY PRN 11/01/16 13:30 Diazepam (Valium) 10 mg QID 10/29/16 17:00 11/01/16 21:34 10 MG Ertapenem 1 gm/ Sodium Chloride 50 ml @ 100 mls/hr Q24H 11/02/16 08:15 UNV Fentanyl (Duragesic 50mcg/ Hr Patch) 1 patch Q3DAYS 10/29/16 09:00 11/01/16 08:10 1 PATCH Fentanyl Citrate (Fentanyl 2ml Vial) 50 mcg PRN Q2HR PRN 10/26/16 16:45 10/27/16 16:44 DC Gadobutrol (Gadavist) 7 mmol 1X ONCE 10/31/16 11:00 10/31/16 11:01 DC 10/31/16 10:48 7 MMOL Info (Anti-Coagulation Monitoring By Pharmacy) 1 each PRN DAILY PRN 10/27/16 10:45 11/01/16 12:01 1 EACH Iohexol (Omnipaque 300 Mg/ml) 50 ml STK-MED ONCE 10/31/16 10:22 10/31/16 10:23 DC Isosorbide Mononitrate (Imdur) 30 mg DAILY 10/27/16 09:00 11/01/16 08:14 30 MG Lisinopril (Prinivil) 10 mg DAILY 10/27/16 09:00 11/01/16 08:13 10 MG Multi-Ingredient Mouthwash/Gargle (Magic Mouthwash) 10 ml PRN QID PRN 11/01/16 08:45 11/01/16 21:36 10 ML Neomycin/ Polymyxin/ Bacitracin (Triple Antibiotic Ointment) 1 pkt DAILY 11/01/16 09:00 11/01/16 09:40 1 PKT Nitroglycerin (Nitrostat) 0.4 mg PRN Q5MIN PRN 10/26/16 20:30 Nitroglycerin/ Dextrose 250 ml @ 3 mls/hr 1X ONCE 10/26/16 16:15 10/30/16 03:34 DC Non-Formulary Medication 50 mg TID PRN 10/26/16 20:30 UNV Ondansetron HCl (Zofran Odt) 4 mg PRN Q6HRS PRN 10/26/16 20:30 11/02/16 06:04 4 MG Ondansetron HCl (Zofran) 4 mg PRN Q8HRS PRN 10/26/16 16:45 10/27/16 16:44 DC Oxycodone/ Acetaminophen (Percocet 10/325) 1 tab PRN QID PRN 10/26/16 20:30 11/02/16 06:05 1 TAB Pantoprazole Sodium (Protonix) 40 mg DAILYAC 10/29/16 16:30 11/02/16 06:05 40 MG Polyethylene Glycol (miraLAX PACKET) 17 gm PRN DAILY PRN 11/01/16 13:30 Regadenoson (Lexiscan) 0.4 mg 1X ONCE 10/29/16 09:30 10/29/16 09:31 DC 10/29/16 11:18 0.4 MG Rivaroxaban (Xarelto) 15 mg DAILYWSUP 10/27/16 17:00 UNV Ropinirole HCl (Requip) 0.25 mg QHS 10/26/16 21:00 11/01/16 21:34 0.25 MG Sodium Chloride 1,000 ml @ 50 mls/hr Q20H 10/26/16 20:30 11/01/16 13:29 50 MLS/HR Sodium Chloride (Normal Saline Flush) 10 ml QSHIFT PRN 10/26/16 16:15 LAB Lab: Laboratory Tests Test 11/02/16 05:40 Sodium Level 143 mmol/L (136-145) Potassium Level 4.4 mmol/L (3.5-5.1) Chloride Level 111 mmol/L (98-107) Carbon Dioxide Level 25 mmol/L (21-32) Anion Gap 7 (6-14) Blood Urea Nitrogen 19 mg/dL (7-20) Creatinine 1.2 mg/dL (0.6-1.0) Estimated GFR (Cockcroft-Gault) 43.3 Glucose Level 85 mg/dL (70-99) Calcium Level 7.7 mg/dL (8.5-10.1) APPLMILDRED MD Nov 02, 2016 08:23
[2016-11-02] MEDS ORDERED: ERTAPENEM 1 GM in IV NORMAL SALINE 50ML 50 ML IV SCH (09:00)
[2016-11-02] MEDS: LIPASE/PROTEAS/AMYLAS 10/34/55 CAPSULE.DR. PO SCH ×3 (09:33→18:09)
[2016-11-02] MEDS: ATENOLOL 25 MG TABLET. PO SCH ×2 (09:35→21:08)
[2016-11-02] MEDS: APIXABAN 2.5 MG TABLET. PO SCH ×2 (09:35→21:09)
[2016-11-02] MEDS: LISINOPRIL 10 MG TABLET PO SCH (09:36)
[2016-11-02] MEDS: AMIODARONE HCL 200 MG TABLET. PO SCH (09:36)
[2016-11-02] MEDS: diazePAM 5 MG TABLET PO SCH ×4 (09:37→21:10)
[2016-11-02] MEDS: NEOMY/BACITR/POLYMYXIN OINT PACKET. TP SCH (09:37)
[2016-11-02] MEDS: ISOSORBIDE MONONITRATE ER 30 MG TAB.ER.24H PO SCH (09:37)
[2016-11-02] MEDS: IV 1/2 NORMAL SALINE 1,000 ML IV SCH (09:40)
[2016-11-02 10:59] VITALS: BP 148/53
--- NOTE | 2016-11-02 13:10 | PDOC ---
Subjective: Subjective: Abd pain, hip pain, kidney pain, vomiting. Objective: Objective: Per RN - pt reports vomiting overnight, no mention of this in nursing notes/ report, not witnessed. Because she reported vomiting, staff suggested not eating breakfast which she was very upset about. All over 10/10 pain all the time. Gets up and walks alone, then reports she can't. Now on ertapenem for UTI. Vital Signs: Vital Signs Date Time Temp Pulse Resp B/P (MAP) Pulse Ox O2 Delivery O2 Flow Rate FiO2 11/02/16 12:18 14 Nasal Cannula 2.0 11/02/16 10:59 98.2 69 148/53 (84) 96 98.2 Labs: Laboratory Tests Test 11/02/16 05:40 Sodium Level 143 mmol/L Potassium Level 4.4 mmol/L Chloride Level 111 mmol/L Carbon Dioxide Level 25 mmol/L Anion Gap 7 Blood Urea Nitrogen 19 mg/dL Creatinine 1.2 mg/dL Estimated GFR (Cockcroft-Gault) 43.3 Glucose Level 85 mg/dL Calcium Level 7.7 mg/dL PE: GEN: NAD LUNGS: clear HEART: RRR ABD: epigastric pain to right flank NEURO/PSYCH: A & O 3 A/P: Vomiting -reported by pt, unwitnessed by staff, tolerating PO GERD/dyspepsia -was taking viscous lidocaine and Tums at home, started PPI here on 6/5 Epigastric pain Alternating bowel habits -h/o ?pancreatic insufficiency/chronic pancreatitis, collagenous colitis - diarrhea improved w/ pancreatic enzymes -has Miralax PRN UTI -now on ertapenem, per primary -- Unreliable historian. Continue current GI plan. SHEYLA HAMILTON Nov 02, 2016 13:09
[2016-11-02] MEDS: ANTI-COAG MONITOR BY PHARMACY. MC PRN (13:48)
[2016-11-02 15:00] VITALS: BP 153/49
--- NOTE | 2016-11-02 18:18 | PDOC ---
PROGRESS NOTES Subjective Subjective Patient had complained of some nausea and vomiting earlier but no evidence of this was reported by the nurses. At the time that I saw her she was sitting in the chair and denies having any new complaints. Objective Objective Vital Signs Date Time Temp Pulse Resp B/P (MAP) Pulse Ox O2 Delivery O2 Flow Rate FiO2 11/02/16 18:11 14 11/02/16 15:00 98.1 70 153/49 (83) 95 Nasal Cannula 2.0 98.1 Intake and Output 11/02/16 07:00 Intake Total 1600 ml Output Total 700 ml Balance 900 ml Intake Oral 600 ml IV Total 1000 ml Output Urine Total 700 ml # Voids 3 # Bowel Movements 2 Physical Exam Physical Exam No significant changes in cardiac exam Assessment Assessment Patient appears to be stable cardiac quintero. Unless further cardiac problems develop I we will sign off. May go home when okay with Dr. Malhotra. Thank you Comment Review of Relevant I have reviewed the following items alison (where applicable) has been applied. Labs Laboratory Tests Test 11/01/16 05:00 11/02/16 05:40 Sodium Level 144 mmol/L (136-145) 143 mmol/L (136-145) Potassium Level 4.4 mmol/L (3.5-5.1) 4.4 mmol/L (3.5-5.1) Chloride Level 112 mmol/L (98-107) 111 mmol/L (98-107) Carbon Dioxide Level 25 mmol/L (21-32) 25 mmol/L (21-32) Anion Gap 7 (6-14) 7 (6-14) Blood Urea Nitrogen 16 mg/dL (7-20) 19 mg/dL (7-20) Creatinine 1.2 mg/dL (0.6-1.0) 1.2 mg/dL (0.6-1.0) Estimated GFR (Cockcroft-Gault) 43.3 43.3 Glucose Level 94 mg/dL (70-99) 85 mg/dL (70-99) Calcium Level 8.0 mg/dL (8.5-10.1) 7.7 mg/dL (8.5-10.1) Laboratory Tests Test 11/02/16 05:40 Sodium Level 143 mmol/L (136-145) Potassium Level 4.4 mmol/L (3.5-5.1) Chloride Level 111 mmol/L (98-107) Carbon Dioxide Level 25 mmol/L (21-32) Anion Gap 7 (6-14) Blood Urea Nitrogen 19 mg/dL (7-20) Creatinine 1.2 mg/dL (0.6-1.0) Estimated GFR (Cockcroft-Gault) 43.3 Glucose Level 85 mg/dL (70-99) Calcium Level 7.7 mg/dL (8.5-10.1) Microbiology 10/31/16 Urine Culture - Final, Complete 10/31/16 Urine Culture Result 1 (ELOISE) - Final, Complete 10/31/16 Antimicrobic Susceptibility - Final, Complete Medications Current Medications Nitroglycerin (Nitrostat) 0.4 mg PRN Q5MIN PRN SL CP RATING > 1/10; Start at 16:15; Stop 10/26/16 at 20:42; Status DC Nitroglycerin/ Dextrose 250 ml @ 3 mls/hr 1X ONCE IV ; Start 10/26/16 at 16:15; Stop 10/30/16 at 03:34; Status DC Sodium Chloride 1,000 ml @ 1,000 mls/hr Q1H IV Last administered on 10/26/16 16:31; Start 10/26/16 at 16:30; Stop 10/26/16 at 17:29; Status DC Sodium Chloride (Normal Saline Flush) 10 ml QSHIFT PRN IV AFTER MEDS AND BLOOD DRAWS; Start 10/26/16 at 16:15 Ondansetron HCl (Zofran) 4 mg PRN Q8HRS PRN IV NAUSEA/VOMITING; Start 10/26/16 at 16:45; Stop 10/27/16 at 16:44; Status DC Fentanyl Citrate (Fentanyl 2ml Vial) 50 mcg PRN Q2HR PRN IV PAIN; Start at 16:45; Stop 10/27/16 at 16:44; Status DC Sodium Chloride 1,000 ml @ 100 mls/hr Q10H IV Last administered on 10/26/16 18 :08; Start 10/26/16 at 16:43; Stop 10/27/16 at 16:42; Status DC Nitroglycerin (Nitrostat) 0.4 mg PRN Q5MIN PRN SL CHEST PAIN; Start 10/26/16 at 16:45; Stop 10/26/16 at 20:42; Status DC Atenolol (Tenormin) 25 mg BID PO Last administered on 11/02/16 09:35; Start 10/26/16 at 21:00 Fentanyl (Duragesic 50mcg/ Hr Patch) 1 patch Q3DAYS TD ; Start 10/27/16 at 09:00 ; Stop 10/27/16 at 09:00; Status DC Isosorbide Mononitrate (Imdur) 30 mg DAILY PO Last administered on 11/02/16 09: 37; Start 10/27/16 at 09:00 Lisinopril (Prinivil) 10 mg DAILY PO Last administered on 11/02/16 09:36; Start 10/27/16 at 09:00 Nitroglycerin (Nitrostat) 0.4 mg PRN Q5MIN PRN SL CHEST PAIN; Start 10/26/16 at 20:30 Ondansetron HCl (Zofran Odt) 4 mg PRN Q6HRS PRN PO NAUSEA/VOMITING Last administered on 11/02/16 18:09; Start 10/26/16 at 20:30 Oxycodone/ Acetaminophen (Percocet 10/325) 1 tab PRN QID PRN PO PAIN Last administered on 11/02/16 18:11; Start 10/26/16 at 20:30 Non-Formulary Medication 50 mg TID PRN PO PAIN; Start 10/26/16 at 20:30; Status UNV Rivaroxaban (Xarelto) 15 mg DAILYWSUP PO ; Start 10/27/16 at 17:00; Status UNV Ropinirole HCl (Requip) 0.25 mg QHS PO Last administered on 11/01/16 21:34; Start 10/26/16 at 21:00 Amiodarone HCl (Cordarone) 200 mg DAILY PO Last administered on 11/02/16 09:36 ; Start 10/27/16 at 09:00 Sodium Chloride 1,000 ml @ 50 mls/hr Q20H IV Last administered on 11/02/16 09: 40; Start 10/26/16 at 20:30 Fentanyl (Duragesic 50mcg/ Hr Patch) 1 patch Q3DAYS TD Last administered on 11/01 08:10; Start 10/29/16 at 09:00 Apixaban (Eliquis) 2.5 mg BID PO Last administered on 11/02/16 09:35; Start 10/27/16 at 11:00 Info (Anti-Coagulation Monitoring By Pharmacy) 1 each PRN DAILY PRN MC SEE COMMENTS Last administered on 11/02/16 13:48; Start 10/27/16 at 10:45 Regadenoson (Lexiscan) 0.4 mg 1X ONCE IV Last administered on 10/29/16 11:18; Start 10/29/16 at 09:30; Stop 10/29/16 at 09:31; Status DC Amylase/Lipase/ Protease (Zenpep 10,000) 2 cap TIDWMEALS PO Last administered on 11/02/16 18:09; Start 10/29/16 at 12:00 Diazepam (Valium) 10 mg QID PO Last administered on 11/02/16 18:09; Start at 17:00 Pantoprazole Sodium (Protonix) 40 mg DAILYAC PO Last administered on 11/02/16 06:05; Start 10/29/16 at 16:30 Iohexol (Omnipaque 300 Mg/ml) 50 ml STK-MED ONCE .ROUTE ; Start 10/31/16 at 10:22 ; Stop 10/31/16 at 10:23; Status DC Gadobutrol (Gadavist) 7.5 mmol STK-MED ONCE .ROUTE ; Start 10/31/16 at 10:30; Stop 10/31/16 at 10:31; Status DC Gadobutrol (Gadavist) 7 mmol 1X ONCE IV Last administered on 10/31/16 10:48; Start 10/31/16 at 11:00; Stop 10/31/16 at 11:01; Status DC Neomycin/ Polymyxin/ Bacitracin (Triple Antibiotic Ointment) 1 pkt DAILY TP Last administered on 11/02/16 09:37; Start 11/01/16 at 09:00 Multi-Ingredient Mouthwash/Gargle (Magic Mouthwash) 10 ml PRN QID PRN PO MOUTH PAIN Last administered on 11/01/16 21:36; Start 11/01/16 at 08:45 Bisacodyl (Dulcolax Tab) 5 mg PRN DAILY PRN PO CONSTIPATION; Start 11/01/16 at 13:30 Polyethylene Glycol (miraLAX PACKET) 17 gm PRN DAILY PRN PO CONSTIPATION; Start 11/01/16 at 13:30 Ertapenem 1 gm/ Sodium Chloride 50 ml @ 100 mls/hr Q24H IV Last administered on 11/02/16t 09:47; Start 11/02/16 at 09:00 Active Scripts Active Reported Amiodarone Hcl 200 Mg Tablet 1 Tab PO DAILY Lasix (Furosemide) 20 Mg Tablet 0.5 Tab PO BID Xarelto (Rivaroxaban) 20 Mg Tablet 20 Mg PO DAILY Isosorbide Mononitrate Er (Isosorbide Mononitrate) 60 Mg Tab.er.24h 1 Tab PO DAILY Requip (Ropinirole Hcl) 0.5 Mg Tablet 0.25 Tab PO HS NEXT DOSE: 04/23/15 EVENING Demerol (Meperidine Hcl) 50 Mg Tablet 50 Mg PO TID PRN Percocet 10-325 Mg Tablet (Oxycodone/Acetaminophen) 1 Each Tablet 1 Tab PO QID PRN NEXT DOSE: 04/23/15 AFTERNOON FENTANYL 50mcg/hr (Fentanyl) 1 Each Patch.td72 1 Patch TP Q3DAYS NEXT DOSE: 04/25/15 CHANGE PATCH Nitrostat (Nitroglycerin) 0.4 Mg Tab.subl 0.4 Mg SL PRN Q5MIN PRN Zofran Odt (Ondansetron) 4 Mg Tab.rapdis 4 Mg PO Q6HRS PRN Lisinopril 20 Mg Tablet 1 Tab PO DAILY NEXT DOSE: 04/24/15 AM Potassium Chloride 10 Meq Tablet.er 1 Tab PO DAILY NEXT DOSE: 04/24/15 AM Valium (Diazepam) 10 Mg Tablet 10 Mg PO QID NEXT DOSE: 04/23/15 2 PM Tenormin (Atenolol) 50 Mg Tablet 50 Mg PO BID NEXT DOSE: 04/23/15 PM Vitals/I & O Vital Sign - Last 24 Hours 11/01/16 11/01/16 11/01/16 11/01/16 19:00 20:00 21:34 22:51 Temp 99.9 98.2 99.9 98.2 Pulse 80 78 82 Resp 18 18 B/P (MAP) 148/58 (88) 134/57 138/55 (82) Pulse Ox 90 91 O2 Delivery Nasal Cannula Nasal Cannula Nasal Cannula O2 Flow Rate 2.0 2.0 2.0 11/02/16 11/02/16 11/02/16 11/02/16 00:53 03:00 06:05 07:00 Temp 97.9 97.9 Pulse 65 Resp 20 18 20 B/P (MAP) 146/59 (88) Pulse Ox 91 98 98 89 O2 Delivery Nasal Cannula Nasal Cannula Nasal Cannula O2 Flow Rate 2.0 2.0 2.0 2.0 11/02/16 11/02/16 11/02/16 11/02/16 07:00 08:00 09:35 09:36 Temp 98.2 98.2 Pulse 64 65 64 Resp 17 B/P (MAP) 131/63 (85) 138/55 131/63 Pulse Ox 89 O2 Delivery Nasal Cannula Nasal Cannula O2 Flow Rate 2.0 2.0 11/02/16 11/02/16 11/02/16 11/02/16 09:36 09:37 10:59 12:18 Temp 98.2 98.2 Pulse 64 64 69 Resp 17 14 B/P (MAP) 131/63 131/63 148/53 (84) Pulse Ox 96 O2 Delivery Nasal Cannula Nasal Cannula O2 Flow Rate 2.0 2.0 11/02/16 11/02/16 11/02/16 13:18 15:00 18:11 Temp 98.1 98.1 Pulse 70 Resp 13 17 14 B/P (MAP) 153/49 (83) Pulse Ox 95 O2 Delivery Nasal Cannula Nasal Cannula O2 Flow Rate 2.0 Intake and Output 11/01/16 11/01/16 11/02/16 15:00 23:00 07:00 Intake Total 1000 ml 600 ml Output Total 700 ml Balance 1000 ml 600 ml -700 ml AUSTIN SILVERMAN MD Nov 02, 2016 18:18
[2016-11-02 19:00] VITALS: BP 126/54
[2016-11-02] MEDS: rOPINIRole 0.25 MG TABLET. PO SCH (21:09)
[2016-11-02 23:00] VITALS: BP 121/56
--- NOTE | 2016-11-02 23:49 | PDOC ---
Provider Note Provider Note RENAL F/U : ELISEO S : No new issues or c/o No abd pain. O : VSS Afebrile. Neck : Supple Lungs : Non labored. CVS : RRR Abd : Benign in appearance, without distention. Ext : No edema Neuro : Awake. Labs reviewed. A/P : ARF/ATN HTN w CKD CKD II Doing Ok Cr now 1.2 UOP maintained. Supportive care. SEAN GOMES MD Nov 02, 2016 23:49
[2016-11-03] VITALS (8 sets, daily range): BP systolic 94–160; BP diastolic 35–66
[2016-11-03] MEDS: ONDANSETRON ODT 4 MG TAB.RAPDIS. PO PRN ×4 (00:29→19:53)
[2016-11-03] MEDS: oxyCODONE/APAP 10/325 1 TAB TABLET PO PRN ×4 (00:29→19:54)
[2016-11-03] MEDS ORDERED: FUROSEMIDE 20 MG/2 ML VIAL. IVP ONE (03:00)
--- NOTE | 2016-11-03 03:26 | RAD ---
Chest AP portable at 0302: Reason for examination: Sudden onset of shortness of breath and low O2 saturation tonight. Comparison is made to previous study dated 10/26/2016. Port-A-Cath remains present on the left. Heart size is normal. Mediastinum is unremarkable. Lung garcia show diffuse increased interstitial markings throughout both lung garcia which suggest interstitial edema. There is some blunting at the costophrenic angle on the right suggesting a small right pleural effusion. No acute bony abnormalities are seen. IMPRESSION: Diffusely increased interstitial markings bilaterally consistent with interstitial edema. Small right pleural effusion. Electronically signed by: Julieta Vegas MD (11/03/2016 3:23 AM)
[2016-11-03] MEDS ORDERED: FUROSEMIDE 40 MG/4 ML VIAL. IVP ONE (03:30)
[2016-11-03 05:38] LABS: CALCIUM 8.2 mg/dL (8.5-10.1); CREATININE 1.3 mg/dL (0.6-1.0); GFR 39.5; POTASSIUM 4.3 mmol/L (3.5-5.1)
[2016-11-03] MEDS: PANTOPRAZOLE 40 MG TABLET.DR. PO SCH (08:06)
[2016-11-03] MEDS: diazePAM 5 MG TABLET PO SCH ×4 (08:07→21:33)
[2016-11-03] MEDS: LIPASE/PROTEAS/AMYLAS 10/34/55 CAPSULE.DR. PO SCH ×3 (08:07→16:45)
[2016-11-03] MEDS: LISINOPRIL 10 MG TABLET PO SCH (08:08)
[2016-11-03] MEDS: AMIODARONE HCL 200 MG TABLET. PO SCH (08:08)
[2016-11-03] MEDS: ATENOLOL 25 MG TABLET. PO SCH ×2 (08:08→23:16)
[2016-11-03] MEDS: NEOMY/BACITR/POLYMYXIN OINT PACKET. TP SCH (08:08)
[2016-11-03] MEDS: ISOSORBIDE MONONITRATE ER 30 MG TAB.ER.24H PO SCH (08:08)
[2016-11-03] MEDS: APIXABAN 2.5 MG TABLET. PO SCH ×2 (08:09→21:33)
--- NOTE | 2016-11-03 10:59 | PDOC ---
Provider Note Provider Note vss, got orthopna last pm so stopped iv fluid, back on mild lasix- e coli so change to ancef, then keflex 11/04 likely DAMON JAY MD Nov 03, 2016 10:59
[2016-11-03] MEDS: POTASSIUM CHLORIDE 10 MEQ TABLET.ER. PO SCH (12:43)
[2016-11-03] MEDS: FUROSEMIDE 20 MG TABLET PO SCH ×2 (12:43→16:44)
[2016-11-03] MEDS: ANTI-COAG MONITOR BY PHARMACY. MC PRN (12:57)
--- NOTE | 2016-11-03 13:51 | PDOC ---
G I PROGRESS NOTE Reason for Follow-up Diarrhea/abd pain Subjective Dyspnea persists Physical Exam Lungs decreased BS CV S1 S2 ABD +BS, soft, mild distention Review of Relevant I have reviewed the following items alison (where applicable) has been applied. Labs Laboratory Tests Test 11/02/16 05:40 11/03/16 05:10 Sodium Level 143 mmol/L (136-145) 143 mmol/L (136-145) Potassium Level 4.4 mmol/L (3.5-5.1) 4.3 mmol/L (3.5-5.1) Chloride Level 111 mmol/L (98-107) 110 mmol/L (98-107) Carbon Dioxide Level 25 mmol/L (21-32) 26 mmol/L (21-32) Anion Gap 7 (6-14) 7 (6-14) Blood Urea Nitrogen 19 mg/dL (7-20) 19 mg/dL (7-20) Creatinine 1.2 mg/dL (0.6-1.0) 1.3 mg/dL (0.6-1.0) Estimated GFR (Cockcroft-Gault) 43.3 39.5 Glucose Level 85 mg/dL (70-99) 97 mg/dL (70-99) Calcium Level 7.7 mg/dL (8.5-10.1) 8.2 mg/dL (8.5-10.1) Laboratory Tests Test 11/03/16 05:10 Sodium Level 143 mmol/L (136-145) Potassium Level 4.3 mmol/L (3.5-5.1) Chloride Level 110 mmol/L (98-107) Carbon Dioxide Level 26 mmol/L (21-32) Anion Gap 7 (6-14) Blood Urea Nitrogen 19 mg/dL (7-20) Creatinine 1.3 mg/dL (0.6-1.0) Estimated GFR (Cockcroft-Gault) 39.5 Glucose Level 97 mg/dL (70-99) Calcium Level 8.2 mg/dL (8.5-10.1) Microbiology 10/31/16 Urine Culture - Final, Complete 10/31/16 Urine Culture Result 1 (ELOISE) - Final, Complete 10/31/16 Antimicrobic Susceptibility - Final, Complete Medications Current Medications Nitroglycerin (Nitrostat) 0.4 mg PRN Q5MIN PRN SL CP RATING > 1/10; Start at 16:15; Stop 10/26/16 at 20:42; Status DC Nitroglycerin/ Dextrose 250 ml @ 3 mls/hr 1X ONCE IV ; Start 10/26/16 at 16:15; Stop 10/30/16 at 03:34; Status DC Sodium Chloride 1,000 ml @ 1,000 mls/hr Q1H IV Last administered on 10/26/16 16:31; Start 10/26/16 at 16:30; Stop 10/26/16 at 17:29; Status DC Sodium Chloride (Normal Saline Flush) 10 ml QSHIFT PRN IV AFTER MEDS AND BLOOD DRAWS; Start 10/26/16 at 16:15 Ondansetron HCl (Zofran) 4 mg PRN Q8HRS PRN IV NAUSEA/VOMITING; Start 10/26/16 at 16:45; Stop 10/27/16 at 16:44; Status DC Fentanyl Citrate (Fentanyl 2ml Vial) 50 mcg PRN Q2HR PRN IV PAIN; Start at 16:45; Stop 10/27/16 at 16:44; Status DC Sodium Chloride 1,000 ml @ 100 mls/hr Q10H IV Last administered on 10/26/16 18 :08; Start 10/26/16 at 16:43; Stop 10/27/16 at 16:42; Status DC Nitroglycerin (Nitrostat) 0.4 mg PRN Q5MIN PRN SL CHEST PAIN; Start 10/26/16 at 16:45; Stop 10/26/16 at 20:42; Status DC Atenolol (Tenormin) 25 mg BID PO Last administered on 11/03/16 08:08; Start at 21:00 Fentanyl (Duragesic 50mcg/ Hr Patch) 1 patch Q3DAYS TD ; Start 10/27/16 at 09:00 ; Stop 10/27/16 at 09:00; Status DC Isosorbide Mononitrate (Imdur) 30 mg DAILY PO Last administered on 11/03/16 08 :08; Start 10/27/16 at 09:00 Lisinopril (Prinivil) 10 mg DAILY PO Last administered on 11/03/16 08:08; Start 10/27/16 at 09:00 Nitroglycerin (Nitrostat) 0.4 mg PRN Q5MIN PRN SL CHEST PAIN; Start 10/26/16 at 20:30 Ondansetron HCl (Zofran Odt) 4 mg PRN Q6HRS PRN PO NAUSEA/VOMITING Last administered on 11/03/16 12:43; Start 10/26/16 at 20:30 Oxycodone/ Acetaminophen (Percocet 10/325) 1 tab PRN QID PRN PO PAIN Last administered on 11/03/16 12:43; Start 10/26/16 at 20:30 Non-Formulary Medication 50 mg TID PRN PO PAIN; Start 10/26/16 at 20:30; Status UNV Rivaroxaban (Xarelto) 15 mg DAILYWSUP PO ; Start 10/27/16 at 17:00; Status UNV Ropinirole HCl (Requip) 0.25 mg QHS PO Last administered on 11/02/16 21:09; Start 10/26/16 at 21:00 Amiodarone HCl (Cordarone) 200 mg DAILY PO Last administered on 11/03/16 08:08 ; Start 10/27/16 at 09:00 Sodium Chloride 1,000 ml @ 50 mls/hr Q20H IV Last administered on 11/02/16 09: 40; Start 10/26/16 at 20:30; Stop 11/03/16 at 02:45; Status DC Fentanyl (Duragesic 50mcg/ Hr Patch) 1 patch Q3DAYS TD Last administered on 11/01 08:10; Start 10/29/16 at 09:00 Apixaban (Eliquis) 2.5 mg BID PO Last administered on 11/03/16 08:09; Start at 11:00 Info (Anti-Coagulation Monitoring By Pharmacy) 1 each PRN DAILY PRN MC SEE COMMENTS Last administered on 11/03/16 12:57; Start 10/27/16 at 10:45 Regadenoson (Lexiscan) 0.4 mg 1X ONCE IV Last administered on 10/29/16 11:18; Start 10/29/16 at 09:30; Stop 10/29/16 at 09:31; Status DC Amylase/Lipase/ Protease (Zenpep 10,000) 2 cap TIDWMEALS PO Last administered on 11/03/16 12:42; Start 10/29/16 at 12:00 Diazepam (Valium) 10 mg QID PO Last administered on 11/03/16 12:43; Start 10/29 at 17:00 Pantoprazole Sodium (Protonix) 40 mg DAILYAC PO Last administered on 11/03/16 08:06; Start 10/29/16 at 16:30 Iohexol (Omnipaque 300 Mg/ml) 50 ml STK-MED ONCE .ROUTE ; Start 10/31/16 at 10:22 ; Stop 10/31/16 at 10:23; Status DC Gadobutrol (Gadavist) 7.5 mmol STK-MED ONCE .ROUTE ; Start 10/31/16 at 10:30; Stop 10/31/16 at 10:31; Status DC Gadobutrol (Gadavist) 7 mmol 1X ONCE IV Last administered on 10/31/16 10:48; Start 10/31/16 at 11:00; Stop 10/31/16 at 11:01; Status DC Neomycin/ Polymyxin/ Bacitracin (Triple Antibiotic Ointment) 1 pkt DAILY TP Last administered on 11/03/16 08:08; Start 11/01/16 at 09:00 Multi-Ingredient Mouthwash/Gargle (Magic Mouthwash) 10 ml PRN QID PRN PO MOUTH PAIN Last administered on 11/01/16 21:36; Start 11/01/16 at 08:45 Bisacodyl (Dulcolax Tab) 5 mg PRN DAILY PRN PO CONSTIPATION; Start 11/01/16 at 13:30 Polyethylene Glycol (miraLAX PACKET) 17 gm PRN DAILY PRN PO CONSTIPATION; Start 11/01/16 at 13:30 Ertapenem 1 gm/ Sodium Chloride 50 ml @ 100 mls/hr Q24H IV Last administered on 11/02/16 09:47; Start 11/02/16 at 09:00; Stop 11/03/16 at 10:44; Status DC Furosemide (Lasix) 20 mg 1X ONCE IVP ; Start 11/03/16 at 03:00; Stop 11/03/16 at 03:01; Status Cancel Furosemide (Lasix) 40 mg 1X ONCE IVP Last administered on 11/03/16 03:19; Start 11/03/16 at 03:30; Stop 11/03/16 at 03:31; Status DC Cefazolin Sodium 1 gm/Sodium Chloride 50 ml @ 100 mls/hr [id number] IV ; Start 11/03 at 18:00 Furosemide (Lasix) 10 mg [id number] PO Last administered on 11/03/16 12:43; Start 11/03/16 at 11:00 Potassium Chloride (Klor-Con) 10 meq DAILY PO Last administered on 11/03/16 12 :43; Start 11/03/16 at 11:00 Active Scripts Active Reported Amiodarone Hcl 200 Mg Tablet 1 Tab PO DAILY Lasix (Furosemide) 20 Mg Tablet 0.5 Tab PO BID Xarelto (Rivaroxaban) 20 Mg Tablet 20 Mg PO DAILY Isosorbide Mononitrate Er (Isosorbide Mononitrate) 60 Mg Tab.er.24h 1 Tab PO DAILY Requip (Ropinirole Hcl) 0.5 Mg Tablet 0.25 Tab PO HS NEXT DOSE: 04/23/15 EVENING Demerol (Meperidine Hcl) 50 Mg Tablet 50 Mg PO TID PRN Percocet 10-325 Mg Tablet (Oxycodone/Acetaminophen) 1 Each Tablet 1 Tab PO QID PRN NEXT DOSE: 04/23/15 AFTERNOON FENTANYL 50mcg/hr (Fentanyl) 1 Each Patch.td72 1 Patch TP Q3DAYS NEXT DOSE: 04/25/15 CHANGE PATCH Nitrostat (Nitroglycerin) 0.4 Mg Tab.subl 0.4 Mg SL PRN Q5MIN PRN Zofran Odt (Ondansetron) 4 Mg Tab.rapdis 4 Mg PO Q6HRS PRN Lisinopril 20 Mg Tablet 1 Tab PO DAILY NEXT DOSE: 04/24/15 AM Potassium Chloride 10 Meq Tablet.er 1 Tab PO DAILY NEXT DOSE: 04/24/15 AM Valium (Diazepam) 10 Mg Tablet 10 Mg PO QID NEXT DOSE: 04/23/15 2 PM Tenormin (Atenolol) 50 Mg Tablet 50 Mg PO BID NEXT DOSE: 04/23/15 PM Vitals/I & O Vital Sign - Last 24 Hours 11/02/16 11/02/16 11/02/16 11/02/16 15:00 18:11 19:00 20:04 Temp 98.1 98.8 98.1 98.8 Pulse 70 66 Resp 17 14 18 B/P (MAP) 153/49 (83) 126/54 (78) Pulse Ox 95 93 O2 Delivery Nasal Cannula Nasal Cannula Nasal Cannula O2 Flow Rate 2.0 2.0 2.0 11/02/16 11/02/16 11/03/16 11/03/16 21:08 23:00 00:29 03:30 Temp 98.1 97.9 98.1 97.9 Pulse 66 60 81 Resp 18 18 20 B/P (MAP) 126/54 121/56 (77) 160/56 (90) Pulse Ox 93 93 95 O2 Delivery Nasal Cannula Nasal Cannula Nasal Cannula O2 Flow Rate 2.0 2.0 2.0 11/03/16 11/03/16 11/03/16 11/03/16 06:50 07:00 08:00 08:07 Temp 100.2 100.2 Pulse 87 Resp 18 16 20 B/P (MAP) 152/66 (94) Pulse Ox 95 91 87 O2 Delivery Nasal Cannula Nasal Cannula Nasal Cannula Nasal Cannula O2 Flow Rate 2.0 4.0 4.0 4.0 11/03/16 11/03/16 11/03/16 11/03/16 08:08 08:08 08:08 08:08 Pulse 81 81 81 81 B/P (MAP) 160/56 160/56 160/56 160/56 11/03/16 11/03/16 11:03 12:43 Temp 98.4 98.4 Pulse 75 Resp 17 B/P (MAP) 100/45 (63) Pulse Ox 90 O2 Delivery Nasal Cannula Nasal Cannula O2 Flow Rate 4.0 4.0 Intake and Output 11/02/16 11/02/16 11/03/16 15:00 23:00 07:00 Intake Total 400 ml 720 ml 120 ml Output Total 350 ml 2550 ml Balance 400 ml 370 ml -2430 ml Problem List Problems Medical Problems: (1) Acute renal failure Status: Acute (2) Angina at rest Status: Acute (3) Chest pain Status: Acute (4) Melanoma Status: Acute (5) Pancreatitis Status: Acute Assessment Diarrhea- with uti on antibiotics and chronic pancreatic exocrine insufficiency , medical therapy intermediate frame tender with enzyme replacements, dyspnea per cardiology PROPGAVIN HANSON MD Nov 03, 2016 13:51
[2016-11-03] MEDS: rOPINIRole 0.25 MG TABLET. PO SCH (21:33)
[2016-11-04] MEDS: oxyCODONE/APAP 10/325 1 TAB TABLET PO PRN ×3 (01:08→20:12)
[2016-11-04 03:00] VITALS: BP 152/50
[2016-11-04] MEDS: PANTOPRAZOLE 40 MG TABLET.DR. PO SCH (05:56)
[2016-11-04 07:00] VITALS: BP 139/45
[2016-11-04] MEDS: LIPASE/PROTEAS/AMYLAS 10/34/55 CAPSULE.DR. PO SCH ×3 (08:04→17:22)
[2016-11-04] MEDS: ATENOLOL 25 MG TABLET. PO SCH ×2 (09:06→21:00)
[2016-11-04] MEDS: POTASSIUM CHLORIDE 10 MEQ TABLET.ER. PO SCH (09:07)
[2016-11-04] MEDS: NEOMY/BACITR/POLYMYXIN OINT PACKET. TP SCH (09:07)
[2016-11-04] MEDS: fentaNYL 50MCG/HR PATCH 1 PATCH PATCH.TD72 TD SCH (09:07)
[2016-11-04] MEDS: LISINOPRIL 10 MG TABLET PO SCH (09:07)
[2016-11-04] MEDS: ISOSORBIDE MONONITRATE ER 30 MG TAB.ER.24H PO SCH (09:08)
[2016-11-04] MEDS: FUROSEMIDE 20 MG TABLET PO SCH ×2 (09:08→14:34)
[2016-11-04] MEDS: diazePAM 5 MG TABLET PO SCH ×4 (09:08→20:56)
[2016-11-04] MEDS: AMIODARONE HCL 200 MG TABLET. PO SCH (09:08)
[2016-11-04] MEDS: APIXABAN 2.5 MG TABLET. PO SCH ×2 (09:09→20:56)
[2016-11-04 10:52] VITALS: BP 109/35
--- NOTE | 2016-11-04 11:08 | PDOC ---
Provider Note Provider Note feels she is not emptying her blsadder, no palpable mass but will scan post void - go to po [facility] now, states she feels too weak to go home today- bmp DAMON Glass MD Nov 04, 2016 11:08
[2016-11-04] MEDS: ONDANSETRON ODT 4 MG TAB.RAPDIS. PO PRN ×2 (12:01→20:08)
[2016-11-04] MEDS: ANTI-COAG MONITOR BY PHARMACY. MC PRN (13:13)
[2016-11-04 15:00] VITALS: BP 82/32
[2016-11-04 20:06] VITALS: BP 90/43
[2016-11-04] MEDS: rOPINIRole 0.25 MG TABLET. PO SCH (20:56)
[2016-11-04] MEDS: CEPHALEXIN 250 MG CAPSULE. PO SCH (20:56)
[2016-11-04 22:51] VITALS: BP 93/49
--- NOTE | 2016-11-04 23:39 | PDOC ---
Provider Note Provider Note RENAL F/U : ELISEO S : No new issues or c/o Resting. O : VSS Afebrile. Neck : Supple Lungs : Non labored. CVS : RRR Abd : Benign in appearance, without distention. Labs reviewed. A/P : ARF/ATN HTN w CKD CKD II Doing Ok Cr stable. ARF resolved. Mild stage II CKD. Follow from periphery and available as needed. Supportive care. SEAN GOMES MD Nov 04, 2016 23:39
[2016-11-05] VITALS (8 sets, daily range): BP systolic 83–152; BP diastolic 32–65
[2016-11-05] MEDS: ONDANSETRON ODT 4 MG TAB.RAPDIS. PO PRN (04:33)
[2016-11-05] MEDS: PANTOPRAZOLE 40 MG TABLET.DR. PO SCH (06:38)
[2016-11-05] MEDS: oxyCODONE/APAP 10/325 1 TAB TABLET PO PRN ×3 (06:39→22:23)
--- NOTE | 2016-11-05 08:25 | PDOC ---
GENERAL General: vss and afebrile. positive review of symptoms with major complaints being still little sob and bladder doesn't feel like it is emptying. clinically improved from chf with O2 needs back at baseline of 2L/NC. very weak and therapy recommending snu and will get eval for same. otherwise same. Problems: VITAL SIGNS Vital Signs: Vital Signs Date Time Temp Pulse Resp B/P (MAP) Pulse Ox O2 Delivery O2 Flow Rate FiO2 11/05/16 06:39 98 Nasal Cannula 4.0 11/05/16 04:39 69 146/51 (82) 11/05/16 03:00 97.5 20 97.5 I & O I & O Intake and Output 11/05/16 07:00 Intake Total 480 ml Output Total 750 ml Balance -270 ml Intake Oral 480 ml Output Urine Total 750 ml ALLERGIES Allergies: Allergies Coded Allergies Type Severity Reaction Last Updated Verified diphenhydramine Allergy Severe Shortness of Air 10/26/15 Yes NSAIDS (Non-Steroidal Anti-Inflamma Allergy Intermediate All except Feldene 05/31/14 Yes Pentazocine Lactate Allergy Intermediate Blood pressure increase, chest pain, heart races, itching. 05/31/14 Yes Trimethobenzamide HCl Allergy Intermediate Severe muscle spasms 05/31/14 Yes acetaminophen Allergy Intermediate Shallow breathing, slow heart rate, stomach pain 05/31/14 Yes adhesive Allergy Intermediate rash--"will explain." 05/31/14 Yes butorphanol tartrate Allergy Intermediate Hallucinations, PALOMARES, anxiety, rash 05/31/14 Yes carisoprodol Allergy Intermediate Fainting, fast heart rate, light-headed Yes chlorzoxazone Allergy Intermediate Nausea, dizzy, rash, feels like I might pass out 05/31/14 Yes codeine Allergy Intermediate Shallow breathing, vomiting, severe PALOMARES, bradycardia, itching 05/31/14 Yes codeine phosphate Allergy Intermediate Shallow breathing, slow heart rate, stomach pain 05/31/14 Yes cyclobenzaprine HCl Allergy Intermediate Chest pain,PALOMARES, fast heart rate, nervous 05/31/14 Yes erythromycin base Allergy Intermediate Fainting, fast/irreg HR, rash, itiching 05/31/14 Yes hydromorphone HCl Allergy Intermediate Apneic 05/31/14 Yes iodine Allergy Intermediate Itching, skin rash, hives 05/31/14 Yes ketorolac tromethamine Allergy Intermediate Chest pain, sudden severe PALOMARES Yes levofloxacin Allergy Intermediate Severe dizziness, heart races, itching, stomach pain 05/31/14 Yes midazolam HCl Allergy Intermediate Slow heart rate, affects bld pressure, mild rash 05/31/14 Yes morphine Allergy Intermediate apneic 05/31/14 Yes nalbuphine HCl Allergy Intermediate Tachycardia, confusion, hallucinations, nervous 05/31/14 Yes I S O L A T I O N *CONTACT* Allergy Unknown 05/03/16 Yes MEDS Medications: Current Medications Medications (Trade) Dose Ordered Sig/Cha Start Time Stop Time Status Last Admin Dose Admin Amiodarone HCl (Cordarone) 200 mg DAILY 10/27/16 09:00 11/04/16 09:08 200 MG Amylase/Lipase/ Protease (Zenpep 10,000) 2 cap TIDWMEALS 10/29/16 12:00 11/04/16 17:22 2 CAP Apixaban (Eliquis) 2.5 mg BID 10/27/16 11:00 11/04/16 20:56 2.5 MG Atenolol (Tenormin) 25 mg BID 10/26/16 21:00 11/04/16 09:06 25 MG Bisacodyl (Dulcolax Tab) 5 mg PRN DAILY PRN 11/01/16 13:30 11/03/16 21:33 5 MG Cefazolin Sodium 1 gm/Sodium Chloride 50 ml @ 100 mls/hr [id number] 11/03/16 18:00 11/04/16 11:05 DC 11/04/16 05:57 100 MLS/HR Cephalexin HCl (Keflex) 500 mg BID 11/04/16 21:00 11/04/16 20:56 500 MG Diazepam (Valium) 10 mg QID 10/29/16 17:00 11/04/16 20:56 10 MG Ertapenem 1 gm/ Sodium Chloride 50 ml @ 100 mls/hr Q24H 11/02/16 09:00 11/03/16 10:44 DC 11/02/16 09:47 100 MLS/HR Fentanyl (Duragesic 50mcg/ Hr Patch) 1 patch Q3DAYS 10/29/16 09:00 11/04/16 09:07 1 PATCH Fentanyl Citrate (Fentanyl 2ml Vial) 50 mcg PRN Q2HR PRN 10/26/16 16:45 10/27/16 16:44 DC Furosemide (Lasix) 10 mg [id number] 11/03/16 11:00 11/04/16 14:34 10 MG Gadobutrol (Gadavist) 7 mmol 1X ONCE 10/31/16 11:00 10/31/16 11:01 DC 10/31/16 10:48 7 MMOL Info (Anti-Coagulation Monitoring By Pharmacy) 1 each PRN DAILY PRN 10/27/16 10:45 11/04/16 13:13 1 EACH Iohexol (Omnipaque 300 Mg/ml) 50 ml STK-MED ONCE 10/31/16 10:22 10/31/16 10:23 DC Isosorbide Mononitrate (Imdur) 30 mg DAILY 10/27/16 09:00 11/04/16 09:08 30 MG Lisinopril (Prinivil) 10 mg DAILY 10/27/16 09:00 11/04/16 09:07 10 MG Multi-Ingredient Mouthwash/Gargle (Magic Mouthwash) 10 ml PRN QID PRN 11/01/16 08:45 11/01/16 21:36 10 ML Neomycin/ Polymyxin/ Bacitracin (Triple Antibiotic Ointment) 1 pkt DAILY 11/01/16 09:00 11/04/16 09:07 1 PKT Nitroglycerin (Nitrostat) 0.4 mg PRN Q5MIN PRN 10/26/16 20:30 Nitroglycerin/ Dextrose 250 ml @ 3 mls/hr 1X ONCE 10/26/16 16:15 10/30/16 03:34 DC Non-Formulary Medication 50 mg TID PRN 10/26/16 20:30 UNV Ondansetron HCl (Zofran Odt) 4 mg PRN Q6HRS PRN 10/26/16 20:30 11/05/16 04:33 4 MG Ondansetron HCl (Zofran) 4 mg PRN Q8HRS PRN 10/26/16 16:45 10/27/16 16:44 DC Oxycodone/ Acetaminophen (Percocet 10/325) 1 tab PRN QID PRN 10/26/16 20:30 11/05/16 06:39 1 TAB Pantoprazole Sodium (Protonix) 40 mg DAILYAC 10/29/16 16:30 11/05/16 06:38 40 MG Polyethylene Glycol (miraLAX PACKET) 17 gm PRN DAILY PRN 11/01/16 13:30 Potassium Chloride (Klor-Con) 10 meq DAILY 11/03/16 11:00 11/04/16 09:07 10 MEQ Regadenoson (Lexiscan) 0.4 mg 1X ONCE 10/29/16 09:30 10/29/16 09:31 DC 10/29/16 11:18 0.4 MG Rivaroxaban (Xarelto) 15 mg DAILYWSUP 10/27/16 17:00 UNV Ropinirole HCl (Requip) 0.25 mg QHS 10/26/16 21:00 11/04/16 20:56 0.25 MG Sodium Chloride 1,000 ml @ 50 mls/hr Q20H 10/26/16 20:30 11/03/16 02:45 DC 11/02/16 09:40 50 MLS/HR Sodium Chloride (Normal Saline Flush) 10 ml QSHIFT PRN 10/26/16 16:15 MILDRED CLAYTON MD Nov 05, 2016 08:25
[2016-11-05] MEDS: LIPASE/PROTEAS/AMYLAS 10/34/55 CAPSULE.DR. PO SCH ×3 (08:46→17:27)
[2016-11-05] MEDS: diazePAM 5 MG TABLET PO SCH ×4 (08:46→22:15)
[2016-11-05] MEDS: NEOMY/BACITR/POLYMYXIN OINT PACKET. TP SCH (08:46)
[2016-11-05] MEDS: APIXABAN 2.5 MG TABLET. PO SCH ×2 (08:46→22:14)
[2016-11-05] MEDS: POTASSIUM CHLORIDE 10 MEQ TABLET.ER. PO SCH (08:47)
[2016-11-05] MEDS: CEPHALEXIN 250 MG CAPSULE. PO SCH ×2 (08:47→22:14)
[2016-11-05] MEDS: ATENOLOL 25 MG TABLET. PO SCH ×3 (09:00→23:01)
--- NOTE | 2016-11-05 11:16 | PDOC ---
Renal-Progress Notes Subjective Notes Notes NONE History of Present Illness Hx of present illness NO CHANGE Vitals Vitals Vital Signs Date Time Temp Pulse Resp B/P (MAP) Pulse Ox O2 Delivery O2 Flow Rate FiO2 11/05/16 08:00 Nasal Cannula 2.0 11/05/16 07:39 20 11/05/16 07:00 97.7 59 96/52 (67) 85 97.7 Weight Weight [ ] I.O. Intake and Output Intake and Output 11/05/16 07:00 Intake Total 480 ml Output Total 750 ml Balance -270 ml Intake Oral 480 ml Output Urine Total 750 ml Micro Micro Microbiology 10/31/16 Urine Culture - Final, Complete 10/31/16 Urine Culture Result 1 (ELOISE) - Final, Complete 10/31/16 Antimicrobic Susceptibility - Final, Complete Review of Systems Constitutional: yes: weakness, alert Ears/Nose/Throat: Yes: no symptom reported Eyes: Yes: no symptom reported Gastrointestional: Yes: diarrhea Musculoskeletal: Yes: no symptom reported Skin: Yes no symptom reported Physical Exam General Appearance: no apparent distress Skin: warm Respiratory: decreased breath sounds Heart: S1S2 Abdomen: soft, bowel sounds present Neurology: alert Musculoskeletal: Other Assessment Assessment IMP UTI TOR BETTER WITH CR 4.8 TO 1.3 ANEMIA HTN 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
[2016-11-05] MEDS: ISOSORBIDE MONONITRATE ER 30 MG TAB.ER.24H PO SCH (12:07)
[2016-11-05] MEDS: AMIODARONE HCL 200 MG TABLET. PO SCH (12:07)
[2016-11-05] MEDS: ANTI-COAG MONITOR BY PHARMACY. MC PRN (12:19)
--- NOTE | 2016-11-05 12:56 | PDOC ---
Subjective: Subjective: Epigastric pain, flank pain. Objective: Objective: RN aware of no GI concerns. Vital Signs: Vital Signs Date Time Temp Pulse Resp B/P (MAP) Pulse Ox O2 Delivery O2 Flow Rate FiO2 11/05/16 12:07 63 115/63 11/05/16 08:00 Nasal Cannula 2.0 11/05/16 07:39 20 11/05/16 07:00 97.7 85 97.7 PE: GEN: NAD, eating lunch LUNGS: clear HEART: S1S2 ABD: doesn't seem tender NEURO/PSYCH: A & O 3 A/P: GERD/dyspepsia -on PPI Epigastric pain Alternating bowel habits -h/o ?pancreatic insufficiency/chronic pancreatitis, collagenous colitis - diarrhea improved w/ pancreatic enzymes -has Miralax PRN UTI -- Continue same per GI. DC per primary. SHEYLA HAMILTON Nov 05, 2016 12:56
--- NOTE | 2016-11-05 16:50 | PATHOLOGY ---
PATHOLOGY REPORT * * * * * * * * FINAL DIAGNOSIS: Skin, right hip: - Angiokeratoma, congested. There is no evidence of malignancy. (SAS:mgr; d/t: 11/05/16) REPORT ELECTRONICALLY SIGNED BY: Nadege Hampton M.D., Dermatopathologist DATE/TIME: 11/05/2016 16:48 * * * * * * * * GROSS PATHOLOGY: Received in formalin labeled "Cris Brown, skin right hip," is a punch biopsy measuring 0.4 x 0.4 x 0.5 cm in greatest dimensions. The epidermal surface displays a poorly circumscribed, flat, firm, dark brown lesion measuring 0.3 x 0.3 cm. The margin is inked, and the specimen is entirely submitted in cassette A1. (KAH; 11/02/2016) INITIAL CPT CODE(S): A; 55462 Professional services performed by [facility], [address] [place] [address]. Technical services performed by [facility] at [address] [place] [address]. SPECIMEN(S) RECEIVED: A.4mm punch, skin right hip CLINICAL HISTORY: Early pressure sore, frail patient with multiple problems, ER doc was worried about melanoma PATIENT: CRIS BROWN /AGE: 1 1935 (Age: 81) PATIENT #: [id number] ALT CASE #: SPECIMEN COLLECTION DATE: 10/31/2016 SPECIMEN RECEIVED DATE: 11/01/2016 [facility] - [address] [place] [address] - PHONE: [phone] * * * END OF REPORT * * *
[2016-11-05] MEDS: rOPINIRole 0.25 MG TABLET. PO SCH (22:13)
[2016-11-06 02:41] VITALS: BP 146/36
[2016-11-06] MEDS: ONDANSETRON ODT 4 MG TAB.RAPDIS. PO PRN (05:18)
[2016-11-06] MEDS: oxyCODONE/APAP 10/325 1 TAB TABLET PO PRN ×2 (05:19→11:59)
[2016-11-06 05:29] LABS: CALCIUM 8.4 mg/dL (8.5-10.1); CREATININE 1.5 mg/dL (0.6-1.0); GFR 33.5; POTASSIUM 4.6 mmol/L (3.5-5.1)
[2016-11-06 07:00] VITALS: BP 132/45
[2016-11-06] MEDS: LIPASE/PROTEAS/AMYLAS 10/34/55 CAPSULE.DR. PO SCH ×2 (07:32→11:58)
[2016-11-06] MEDS: PANTOPRAZOLE 40 MG TABLET.DR. PO SCH (07:32)
[2016-11-06] MEDS: diazePAM 5 MG TABLET PO SCH ×2 (07:32→12:54)
--- NOTE | 2016-11-06 08:33 | PDOC ---
GENERAL General: see discharge summary. Problems: VITAL SIGNS Vital Signs: Vital Signs Date Time Temp Pulse Resp B/P (MAP) Pulse Ox O2 Delivery O2 Flow Rate FiO2 11/06/16 07:56 Nasal Cannula 3.0 11/06/16 06:19 18 94 11/06/16 02:41 97.9 63 146/36 (72) 97.9 I & O I & O Intake and Output 11/06/16 07:00 Intake Total 480 ml Output Total 500 ml Balance -20 ml Intake Oral 480 ml Output Urine Total 500 ml # Voids 3 # Bowel Movements 2 ALLERGIES Allergies: Allergies Coded Allergies Type Severity Reaction Last Updated Verified diphenhydramine Allergy Severe Shortness of Air 10/26/15 Yes NSAIDS (Non-Steroidal Anti-Inflamma Allergy Intermediate All except Feldene 05/31/14 Yes Pentazocine Lactate Allergy Intermediate Blood pressure increase, chest pain, heart races, itching. 05/31/14 Yes Trimethobenzamide HCl Allergy Intermediate Severe muscle spasms 05/31/14 Yes acetaminophen Allergy Intermediate Shallow breathing, slow heart rate, stomach pain 05/31/14 Yes adhesive Allergy Intermediate rash--"will explain." 05/31/14 Yes butorphanol tartrate Allergy Intermediate Hallucinations, PALOMARES, anxiety, rash 05/31/14 Yes carisoprodol Allergy Intermediate Fainting, fast heart rate, light-headed Yes chlorzoxazone Allergy Intermediate Nausea, dizzy, rash, feels like I might pass out 05/31/14 Yes codeine Allergy Intermediate Shallow breathing, vomiting, severe PALOMARES, bradycardia, itching 05/31/14 Yes codeine phosphate Allergy Intermediate Shallow breathing, slow heart rate, stomach pain 05/31/14 Yes cyclobenzaprine HCl Allergy Intermediate Chest pain,PALOMARES, fast heart rate, nervous 05/31/14 Yes erythromycin base Allergy Intermediate Fainting, fast/irreg HR, rash, itiching 05/31/14 Yes hydromorphone HCl Allergy Intermediate Apneic 05/31/14 Yes iodine Allergy Intermediate Itching, skin rash, hives 05/31/14 Yes ketorolac tromethamine Allergy Intermediate Chest pain, sudden severe PALOMARES Yes levofloxacin Allergy Intermediate Severe dizziness, heart races, itching, stomach pain 05/31/14 Yes midazolam HCl Allergy Intermediate Slow heart rate, affects bld pressure, mild rash 05/31/14 Yes morphine Allergy Intermediate apneic 05/31/14 Yes nalbuphine HCl Allergy Intermediate Tachycardia, confusion, hallucinations, nervous 05/31/14 Yes I S O L A T I O N *CONTACT* Allergy Unknown 05/03/16 Yes MEDS Medications: Current Medications Medications (Trade) Dose Ordered Sig/Cha Start Time Stop Time Status Last Admin Dose Admin Amiodarone HCl (Cordarone) 200 mg DAILY 10/27/16 09:00 11/05/16 12:07 200 MG Amylase/Lipase/ Protease (Zenpep 10,000) 2 cap TIDWMEALS 10/29/16 12:00 11/06/16 07:32 2 CAP Apixaban (Eliquis) 2.5 mg BID 10/27/16 11:00 11/05/16 22:14 2.5 MG Atenolol (Tenormin) 25 mg BID 10/26/16 21:00 11/05/16 23:01 25 MG Bisacodyl (Dulcolax Tab) 5 mg PRN DAILY PRN 11/01/16 13:30 11/03/16 21:33 5 MG Cefazolin Sodium 1 gm/Sodium Chloride 50 ml @ 100 mls/hr [id number] 11/03/16 18:00 11/04/16 11:05 DC 11/04/16 05:57 100 MLS/HR Cephalexin HCl (Keflex) 500 mg BID 11/04/16 21:00 11/05/16 22:14 500 MG Diazepam (Valium) 10 mg QID 10/29/16 17:00 11/06/16 07:32 10 MG Ertapenem 1 gm/ Sodium Chloride 50 ml @ 100 mls/hr Q24H 11/02/16 09:00 11/03/16 10:44 DC 11/02/16 09:47 100 MLS/HR Fentanyl (Duragesic 50mcg/ Hr Patch) 1 patch Q3DAYS 10/29/16 09:00 11/04/16 09:07 1 PATCH Fentanyl Citrate (Fentanyl 2ml Vial) 50 mcg PRN Q2HR PRN 10/26/16 16:45 10/27/16 16:44 DC Furosemide (Lasix) 10 mg [id number] 11/03/16 11:00 11/05/16 11:18 DC 11/04/16 14:34 10 MG Gadobutrol (Gadavist) 7 mmol 1X ONCE 10/31/16 11:00 10/31/16 11:01 DC 10/31/16 10:48 7 MMOL Info (Anti-Coagulation Monitoring By Pharmacy) 1 each PRN DAILY PRN 10/27/16 10:45 11/05/16 12:19 1 EACH Iohexol (Omnipaque 300 Mg/ml) 50 ml STK-MED ONCE 10/31/16 10:22 10/31/16 10:23 DC Isosorbide Mononitrate (Imdur) 30 mg DAILY 10/27/16 09:00 11/05/16 12:07 30 MG Lisinopril (Prinivil) 10 mg DAILY 10/27/16 09:00 11/05/16 11:18 DC 11/04/16 09:07 10 MG Multi-Ingredient Mouthwash/Gargle (Magic Mouthwash) 10 ml PRN QID PRN 11/01/16 08:45 11/01/16 21:36 10 ML Neomycin/ Polymyxin/ Bacitracin (Triple Antibiotic Ointment) 1 pkt DAILY 11/01/16 09:00 11/05/16 08:46 1 PKT Nitroglycerin (Nitrostat) 0.4 mg PRN Q5MIN PRN 10/26/16 20:30 Nitroglycerin/ Dextrose 250 ml @ 3 mls/hr 1X ONCE 10/26/16 16:15 10/30/16 03:34 DC Non-Formulary Medication 50 mg TID PRN 10/26/16 20:30 UNV Ondansetron HCl (Zofran Odt) 4 mg PRN Q6HRS PRN 10/26/16 20:30 11/06/16 05:18 4 MG Ondansetron HCl (Zofran) 4 mg PRN Q8HRS PRN 10/26/16 16:45 10/27/16 16:44 DC Oxycodone/ Acetaminophen (Percocet 10/325) 1 tab PRN QID PRN 10/26/16 20:30 11/06/16 05:19 1 TAB Pantoprazole Sodium (Protonix) 40 mg DAILYAC 10/29/16 16:30 11/06/16 07:32 40 MG Polyethylene Glycol (miraLAX PACKET) 17 gm PRN DAILY PRN 11/01/16 13:30 Potassium Chloride (Klor-Con) 10 meq DAILY 11/03/16 11:00 11/05/16 08:47 10 MEQ Regadenoson (Lexiscan) 0.4 mg 1X ONCE 10/29/16 09:30 10/29/16 09:31 DC 10/29/16 11:18 0.4 MG Rivaroxaban (Xarelto) 15 mg DAILYWSUP 10/27/16 17:00 UNV Ropinirole HCl (Requip) 0.25 mg QHS 10/26/16 21:00 11/05/16 22:13 0.25 MG Sodium Chloride 1,000 ml @ 50 mls/hr Q20H 10/26/16 20:30 11/03/16 02:45 DC 11/02/16 09:40 50 MLS/HR Sodium Chloride (Normal Saline Flush) 10 ml QSHIFT PRN 10/26/16 16:15 LAB Lab: Laboratory Tests Test 11/06/16 05:00 Sodium Level 143 mmol/L (136-145) Potassium Level 4.6 mmol/L (3.5-5.1) Chloride Level 110 mmol/L (98-107) Carbon Dioxide Level 29 mmol/L (21-32) Anion Gap 4 (6-14) Blood Urea Nitrogen 30 mg/dL (7-20) Creatinine 1.5 mg/dL (0.6-1.0) Estimated GFR (Cockcroft-Gault) 33.5 Glucose Level 87 mg/dL (70-99) Calcium Level 8.4 mg/dL (8.5-10.1) MILDRED CLAYTON MD Nov 06, 2016 08:33
[2016-11-06] MEDS: NEOMY/BACITR/POLYMYXIN OINT PACKET. TP SCH (09:01)
[2016-11-06] MEDS: POTASSIUM CHLORIDE 10 MEQ TABLET.ER. PO SCH (09:01)
[2016-11-06] MEDS: CEPHALEXIN 250 MG CAPSULE. PO SCH (09:01)
[2016-11-06] MEDS: AMIODARONE HCL 200 MG TABLET. PO SCH (09:02)
[2016-11-06] MEDS: APIXABAN 2.5 MG TABLET. PO SCH (09:03)
[2016-11-06] MEDS: ATENOLOL 25 MG TABLET. PO SCH (09:03)
[2016-11-06] MEDS: ISOSORBIDE MONONITRATE ER 30 MG TAB.ER.24H PO SCH (09:03)
[2016-11-06] MEDS ORDERED: HEPARIN PF 500 UNIT/5 ML DISP.SYRIN. IV ONE (09:45)
[2016-11-06 11:00] VITALS: BP 138/53
--- NOTE | 2016-11-06 12:10 | PDOC ---
Subjective: Subjective: Offers no GI complaints. Objective: Objective: Reviewed SW note - DC today [facility] today. No GI concerns per RN. Vital Signs: Vital Signs Date Time Temp Pulse Resp B/P (MAP) Pulse Ox O2 Delivery O2 Flow Rate FiO2 11/06/16 11:59 18 Nasal Cannula 11/06/16 09:03 60 132/45 11/06/16 07:56 3.0 11/06/16 07:00 97.5 95 97.5 Labs: Laboratory Tests Test 11/06/16 05:00 Sodium Level 143 mmol/L Potassium Level 4.6 mmol/L Chloride Level 110 mmol/L Carbon Dioxide Level 29 mmol/L Anion Gap 4 Blood Urea Nitrogen 30 mg/dL Creatinine 1.5 mg/dL Estimated GFR (Cockcroft-Gault) 33.5 Glucose Level 87 mg/dL Calcium Level 8.4 mg/dL PE: GEN: NAD, sitting up in bed LUNGS: clear anteriorly HEART: S1S2 ABD: epigastric tenderness as usual NEURO/PSYCH: stable, awake/alert A/P: GERD/dyspepsia, epigastric pain, alternating bowel habits -?h/o chronic pancreatitis/insufficiency, collagenous colitis -on PPI, pancreatic enzymes, Miralax PRN -- DC plans noted, continue present medications. SEHYLA HAMILTON Nov 06, 2016 12:10
[2016-11-06] MEDS: ANTI-COAG MONITOR BY PHARMACY. MC PRN (12:24)
--- NOTE | 2016-11-07 05:32 | DS ---
DATE OF DISCHARGE: 11/06/2016 PRIMARY DIAGNOSIS: Acute renal failure. 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 CHIEF COMPLAINT AND HISTORY OF PRESENT ILLNESS: This 81-year-old white female was getting an MRI of her right hip because of a nonhealing sore in that area to rule out any underlying bone involvement when she developed chest pain, shortness of breath, nausea that was not relieved by nitroglycerin. She was sent to the hospital where she was admitted for the same with also the findings of a BUN of 160 and a creatinine of 4.8. SUMMARY OF STAY: The patient was admitted. Cardiology, Renal, Dermatology, GI, all saw the patient during the stay. Her kidney failure resolved with hydration during the stay. She initially had an elevated lipase, thinking she may have some pancreatitis causing her chest pain, but this came down quickly and GI felt this was factitiously elevated due to the renal failure and did not feel she had pancreatitis at all. Diet was eventually advanced, which she ate, although she developed periods of nausea and vomiting during the stay requiring ____. She developed a urinary tract infection during the stay and this was being treated at the time of discharge. Dermatology biopsied her right hip lesion showing that as mentioned above and her hip did improve during the stay dramatically, likely related to the mattress on the bed, which was much softer than she has at home. She was quite weak and determined by PT after the falls that she should have custodial at the time of discharge for therapy and this was accomplished. DISPOSITION: The patient is discharged to custodial, regular diet, activity with help. We will continue to follow her there. DISCHARGE MEDICATIONS: Have been ____ on the med rec and have been addressed. MILDRED CLAYTON MD DR: ALLISON/joel JOB#: [id number] / [id number]
[2016-11-09] MEDS ORDERED: ATEN25TA PO (22:28)
[2016-11-09] MEDS ORDERED: BISA10SU55 RC (22:54)
[2016-11-09] MEDS ORDERED: LIPA1CAP12 PO (22:54)
[2016-11-09] MEDS ORDERED: PANT40TA3 PO (22:54)
[2016-11-09] MEDS ORDERED: NA P133E2 RC (22:54)
[2016-11-09] MEDS ORDERED: BISA-42 PO (22:54)
[2016-11-09] MEDS ORDERED: POLY17PO29 PO (22:54)
[2016-11-09] MEDS ORDERED: MAGN2400 PO (22:54)
[2016-11-09] MEDS ORDERED: APIX2.5T PO (22:54)
[2016-11-09] MEDS ORDERED: CEPH500C PO (22:54)
== END 2016-11-06 14:16 | DRG 682 ==
LOC: ER 15:48 → 5 NORTH 16:47
PROVIDERS: ADMIT Family Medicine; ATTEND Family Medicine
PROC: 0HBHXZX Excision of Right Upper Leg Skin, External Approach, Diagnostic (ICD-10-PCS; principal; 2016-10-31)
DX: N17.0 Acute kidney failure with tubular necrosis (principal); J96.00 Acute respiratory failure, unspecified whether with hypoxia or hypercapnia; I13.0 Hypertensive heart and chronic kidney disease with heart failure and stage 1 through stage 4 chronic kidney disease, or unspecified chronic kidney disease; G90.50 Complex regional pain syndrome I, unspecified; N39.0 Urinary tract infection, site not specified; I50.30 Unspecified diastolic (congestive) heart failure; K86.1 Other chronic pancreatitis; E78.5 Hyperlipidemia, unspecified; I27.2 Other secondary pulmonary hypertension; E86.0 Dehydration; J44.9 Chronic obstructive pulmonary disease, unspecified; K21.9 Gastro-esophageal reflux disease without esophagitis; I25.119 Atherosclerotic heart disease of native coronary artery with unspecified angina pectoris; K52.9 Noninfective gastroenteritis and colitis, unspecified; K59.00 Constipation, unspecified; Z96.651 Presence of right artificial knee joint; N18.2 Chronic kidney disease, stage 2 (mild); M81.0 Age-related osteoporosis without current pathological fracture; F32.9 Major depressive disorder, single episode, unspecified; F41.9 Anxiety disorder, unspecified; I08.3 Combined rheumatic disorders of mitral, aortic and tricuspid valves; D64.9 Anemia, unspecified; H53.8 Other visual disturbances; I95.9 Hypotension, unspecified; R47.81 Slurred speech; I25.2 Old myocardial infarction; Z82.49 Family history of ischemic heart disease and other diseases of the circulatory system; Z80.0 Family history of malignant neoplasm of digestive organs; Z79.899 Other long term (current) drug therapy; Z87.891 Personal history of nicotine dependence; Z90.49 Acquired absence of other specified parts of digestive tract; Z95.5 Presence of coronary angioplasty implant and graft; Z90.710 Acquired absence of both cervix and uterus; Z88.6 Allergy status to analgesic agent; Z88.1 Allergy status to other antibiotic agents; Z88.5 Allergy status to narcotic agent; Z88.8 Allergy status to other drugs, medicaments and biological substances; Z91.09 Other allergy status, other than to drugs and biological substances
CPT/HCPCS: 36415; 36598; 71010; 73502; 76705; 78452; 80048; 80061; 80076; 81001; 82550; 82553; 83690; 83735; 83880; 84484; 85027; 85651; 87086; 87186; 88305; 93005; 93017; 93306; 96360; 96374; 96375; 96376; A9500; J0690; J1335; J1940; J2785; J7030; Q0162; 97116; 97530; 97535; 99285-25; A9585

== ENCOUNTER → 2017-01-17 | Outpatient (CLI) | payer MEDICARE ==
[2016-11-23 09:28] VITALS: BP 133/54
[~2017-01-17] MED LIST changes: +APIX2.5T PO; +ATEN25TA PO; +BISA-42 PO; +BISA10SU55 RC; +CEPH500C PO; +FURO-69 PO; +ISOS60TA2 PO; +LIPA1CAP12 PO; +MAGN2400 PO; +NA P133E2 RC; +PANT40TA3 PO; +POLY17PO29 PO; +RIVA20TA2 PO
--- NOTE | 2017-01-17 12:18 | RAD ---
CT of the abdomen and pelvis without contrast, 01/17/2017: History: Right flank pain Noncontrast scans were obtained as requested. This a limited study for evaluation of the possibility of urinary tract calculi. There are single small bilateral intrarenal calculi in the upper poles of both kidneys. There is no evidence of hydronephrosis. The ureters cannot be clearly traced through the pelvis in this patient. No ureteral calculus is identified. There is extensive calcific plaquing of the aorta and its branches. There is slight dilatation of the infrarenal abdominal aorta. 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 There are emphysematous changes in both lungs with scattered parenchymal scars. The unopacified liver is unremarkable. The gallbladder is surgically absent. The pancreas cannot be clearly from unopacified bowel. The spleen is unremarkable. The uterus is surgically absent. The bowel loops are not dilated. The cecum is low-lying in the pelvis. The appendix is not visualized. No dilated appendix is identified. No free air or significant free fluid is evident in the abdomen or pelvis. Moderately severe multilevel degenerative changes are present in the spine. IMPRESSION: 1. Single small bilateral nonobstructing intrarenal calculi. 2. No obstructing urinary tract calculus is identified. 3. Miscellaneous chronic findings as described above. PQRS Compliance Statement: One or more of the following individualized dose reduction techniques were utilized for this examination: 1. Automated exposure control 2. Adjustment of the mA and/or kV according to patient size 3. Use of iterative reconstruction technique
== END | disposition home or self-care (01) ==
LOC: CT 08:00
PROVIDERS: ATTEND Family Medicine
DX: N20.0 Calculus of kidney (principal); Z90.49 Acquired absence of other specified parts of digestive tract
CPT/HCPCS: 74176

== ENCOUNTER → 2017-03-15 | Outpatient (CLI) | payer MEDICARE ==
[2016-11-23 09:28] VITALS: BP 133/54
[~2017-03-15] MED LIST changes: +HEPARIN PF 500 UNIT/5 ML DISP.SYRIN. IV ONE; +IOHEXOL 300 MG/ML 50 ML VIAL. ONE
--- NOTE | 2017-03-15 11:25 | RAD ---
Fluoroscopic evaluation of left subclavian port 03/15/2017 Indication: Unable to access port Comparison study: None available. Discussion: Fluoroscopic evaluation demonstrates a left port to be in acceptable position with tip in the superior vena cava directed caudad. Port catheter appear to be intact. Left chest was prepped and draped using sterile barrier technique. The left-sided port was accessed. Port was found to flush and aspirate normally. Portal/with heparin 90 accessed. No immediate complications are identified. Fluoro time 0.1 minutes dose 0.1 Gycm2 Impression: Normally functioning left subclavian port
== END | disposition home or self-care (01) ==
LOC: INTRAD 08:13
PROVIDERS: ATTEND Family Medicine
DX: Z45.2 Encounter for adjustment and management of vascular access device (principal); I13.0 Hypertensive heart and chronic kidney disease with heart failure and stage 1 through stage 4 chronic kidney disease, or unspecified chronic kidney disease; I50.9 Heart failure, unspecified; N18.9 Chronic kidney disease, unspecified; E11.22 Type 2 diabetes mellitus with diabetic chronic kidney disease; J44.9 Chronic obstructive pulmonary disease, unspecified; I25.10 Atherosclerotic heart disease of native coronary artery without angina pectoris; K21.9 Gastro-esophageal reflux disease without esophagitis; M19.91 Primary osteoarthritis, unspecified site; F41.9 Anxiety disorder, unspecified; F17.200 Nicotine dependence, unspecified, uncomplicated; Z90.49 Acquired absence of other specified parts of digestive tract; Z87.39 Personal history of other diseases of the musculoskeletal system and connective tissue; Z90.710 Acquired absence of both cervix and uterus; Z96.652 Presence of left artificial knee joint; Z87.440 Personal history of urinary (tract) infections; Z88.6 Allergy status to analgesic agent; Z88.8 Allergy status to other drugs, medicaments and biological substances; Z91.048 Other nonmedicinal substance allergy status
CPT/HCPCS: 36598

== ENCOUNTER 2017-06-22 06:07 | Inpatient (IN) | payer MEDICARE ==
[2017-06-22] MEDS: IV NORMAL SALINE 1000ML BAG 1,000 ML IV (07:23)
[2017-06-22 07:42] LABS: INFLUENZA A PATIENT NEGATIVE (NEGATIVE); INFLUENZA B PATIENT NEGATIVE (NEGATIVE); OBC FLU VALID
[2017-06-22] MEDS ORDERED: PIP/TAZO PER PHARMACY MC (07:45)
[2017-06-22] MEDS ORDERED: PIPERACILLIN/TAZO IV Push 3.375 GM VIAL. IVP (08:00)
[2017-06-22 08:37] LABS: BASO % 0 % (0-3); EOS % 0 % (0-3); HEMATOCRIT 44.6 % (36.0-47.0); HEMOGLOBIN 14.8 g/dL (12.0-15.5); LYMPH # 0.3 x10^3/uL (1.0-4.8); LYMPH % 1 % (24-48); MEAN CORPUSCULAR HEMOGLOBIN 33 pg (25-35); MEAN CORPUSCULAR HGB CONC 33 g/dL (31-37); MEAN CORPUSCULAR VOLUME 98 fL (79-100); MONO % 9 % (0-9); NEUT # 19.8 x10^3uL (1.8-7.7); NEUT % 89 % (31-73); PLATELET COUNT 273 x10^3/uL (140-400); RED BLOOD COUNT 4.57 x10^6/uL (3.50-5.40); WHITE BLOOD COUNT 22.2 x10^3/uL (4.0-11.0)
[2017-06-22 08:38] LABS: ADD MAN DIFF? YES
[2017-06-22 08:48] LABS: ANION GAP 17 (6-14); BLOOD UREA NITROGEN 81 mg/dL (7-20); BUN/CREATININE RATIO 35 (6-20); CALCIUM 7.9 mg/dL (8.5-10.1); CARBON DIOXIDE 16 mmol/L (21-32); CHLORIDE 119 mmol/L (98-107); CREATININE 2.3 mg/dL (0.6-1.0); GFR 20.4; GLUCOSE 116 mg/dL (70-99); POTASSIUM 3.6 mmol/L (3.5-5.1); SODIUM 152 mmol/L (136-145)
[2017-06-22] MEDS: PIPERACILLIN/TAZOBACTAM 3.375 GM in IV NORMAL SALINE 50ML 50 ML IV (08:48)
[2017-06-22 08:53] LABS: BASE EXCESS ABG -8 mmol/L (-3-3); HCO3 ABG 16 mmol/L (21-28); PCO2 ABG 27 mmHg (35-46); PH ABG 7.38 (7.35-7.45); PO2 ABG 68 mmHg (65-108); SAT O2 ABG 92 % (92-99)
[2017-06-22 08:54] LABS: ALBUMIN 2.2 g/dL (3.4-5.0); ALBUMIN/GLOBULIN RATIO 0.5 (1.0-1.7); ALK PHOS 100 U/L (46-116); ALT (SGPT) 55 U/L (14-59); AST (SGOT) 38 U/L (15-37); TOTAL BILIRUBIN 0.6 mg/dL (0.2-1.0); TOTAL PROTEIN 6.8 g/dL (6.4-8.2)
[2017-06-22 08:55] LABS: FIO2 ABG 21
[2017-06-22 08:56] LABS: LACTIC ACID 1.2 mmol/L (0.4-2.0)
[2017-06-22 08:59] LABS: NT-PRO BNP 24916 pg/mL (0-449)
[2017-06-22 09:01] LABS: TROPONINI 0.119 ng/mL (0.000-0.055)
[2017-06-22] MEDS: VANCOMYCIN 1.25 GM in IV DEXTROSE 5% 250 ML IV (09:22)
[2017-06-22] MEDS: ASPIRIN 300 MG SUPP.RECT PR (09:36)
[2017-06-22 09:38] LABS: % BANDS 6 % (0-9); % SEGS 86 % (35-66); PLT ESTIMATE ADEQUATE (ADEQUATE)
[2017-06-22 09:40] LABS: % LYMPHS 1 % (24-48); % MONOS 7 % (0-10)
[2017-06-22] MEDS: VANCOMYCIN PER PHARMACY MC (10:51)
[2017-06-22] MEDS ORDERED: NITROGLYCERIN SUBLINGUAL 0.4 MG BOTTLE OF 25. SL (12:15)
[2017-06-22] MEDS: LIPASE/PROTEAS/AMYLAS 10/34/55 CAPSULE.DR. PO ×2 (12:30→17:53)
[2017-06-22] MEDS: PANTOPRAZOLE 40 MG TABLET.DR. PO (12:30)
[2017-06-22] MEDS: ISOSORBIDE MONONITRATE ER 30 MG TAB.ER.24H PO (12:51)
[2017-06-22] MEDS: PIPERACILLIN/TAZOBACTAM 2.25 GM in IV DEXTROSE 5% 50 ML IV (13:00)
[2017-06-22] MEDS ORDERED: PIPERACILLN-TAZO 2.25GM PREMIX 50 ML IV (13:00)
[2017-06-22] MEDS ORDERED: MEROPENEM 500 MG in IV NORMAL SALINE 50ML 50 ML IV (15:00)
[2017-06-22] MEDS: SODIUM BICARBONATE VIAL 50 MEQ in IV DEXTROSE 5% 1,000 ML IV (15:41)
[2017-06-22 21:09] LABS: MRSA BY PCR Negative (Negative)
[2017-06-22] MEDS: MEROPENEM IV Push 500 MG VIAL. IVP (21:52)
[2017-06-23 06:36] LABS: ADD MAN DIFF? NO
[2017-06-23 06:47] LABS: BASO % 0 % (0-3); EOS % 0 % (0-3); HEMATOCRIT 42.8 % (36.0-47.0); HEMOGLOBIN 13.9 g/dL (12.0-15.5); LYMPH # 0.3 x10^3/uL (1.0-4.8); LYMPH % 1 % (24-48); MEAN CORPUSCULAR HEMOGLOBIN 32 pg (25-35); MEAN CORPUSCULAR HGB CONC 33 g/dL (31-37); MEAN CORPUSCULAR VOLUME 97 fL (79-100); MONO # 1.6 x10^3/uL (0.0-1.1); MONO % 8 % (0-9); NEUT # 19.1 x10^3uL (1.8-7.7); NEUT % 91 % (31-73); PLATELET COUNT 216 x10^3/uL (140-400); RED BLOOD COUNT 4.41 x10^6/uL (3.50-5.40); RED CELL DISTRIBUTION WIDTH 14.6 % (11.5-14.5)
[2017-06-23] MEDS: MEROPENEM IV Push 500 MG VIAL. IVP ×3 (06:51→21:42)
[2017-06-23 06:59] LABS: ALBUMIN 2.1 g/dL (3.4-5.0); ALBUMIN/GLOBULIN RATIO 0.5 (1.0-1.7); ALK PHOS 92 U/L (46-116); ALT (SGPT) 44 U/L (14-59); ANION GAP 13 (6-14); AST (SGOT) 32 U/L (15-37); BLOOD UREA NITROGEN 66 mg/dL (7-20); BUN/CREATININE RATIO 33 (6-20); CARBON DIOXIDE 20 mmol/L (21-32); CHLORIDE 109 mmol/L (98-107); GLUCOSE 112 mg/dL (70-99); POTASSIUM 3.3 mmol/L (3.5-5.1); SODIUM 142 mmol/L (136-145); TOTAL BILIRUBIN 0.7 mg/dL (0.2-1.0); TOTAL PROTEIN 6.5 g/dL (6.4-8.2)
[2017-06-23] MEDS: ISOSORBIDE MONONITRATE ER 30 MG TAB.ER.24H PO (08:21)
[2017-06-23] MEDS: LIPASE/PROTEAS/AMYLAS 10/34/55 CAPSULE.DR. PO ×3 (08:21→17:00)
[2017-06-23] MEDS: PANTOPRAZOLE 40 MG TABLET.DR. PO (08:21)
[2017-06-23] MEDS: SODIUM BICARBONATE VIAL 50 MEQ in IV DEXTROSE 5% 1,000 ML IV (08:22)
[2017-06-23] MEDS: fentaNYL 50MCG/HR PATCH 1 PATCH PATCH.TD72 TD (09:00)
[2017-06-23 09:14] LABS: BILIRUBIN,URINE NEGATIVE (NEG); CLARITY,URINE CLEAR; COLOR,URINE YELLOW; GLUCOSE,URINE NEGATIVE (NEG); NITRITE,URINE NEGATIVE (NEG); PH,URINE 5.5; PROTEIN,URINE 30 mg/dL (NEG-TRACE)
[2017-06-23 09:31] LABS: BACTERIA,URINE 0 /HPF (0-FEW); RBC,URINE 0 /HPF (0-2); SQUAMOUS EPITHELIAL CELL,UR FEW /LPF
[2017-06-23] MEDS: POTASSIUM CHLORIDE 10 MEQ TABLET.ER. PO ×2 (12:31→21:42)
[2017-06-23] MEDS: IV 1/2 NORMAL SALINE 1,000 ML IV (13:59)
[2017-06-23] MEDS: AZITHROMYCIN 250 MG TABLET. PO (13:59)
[2017-06-24] MEDS ORDERED: VANCOMYCIN RANDOM LEVEL. MC (06:00)
[2017-06-24] MEDS: MEROPENEM IV Push 500 MG VIAL. IVP ×3 (06:40→22:14)
[2017-06-24] MEDS: PANTOPRAZOLE 40 MG TABLET.DR. PO (06:40)
[2017-06-24] MEDS: IV 1/2 NORMAL SALINE 1,000 ML IV (06:42)
[2017-06-24] MEDS: LIPASE/PROTEAS/AMYLAS 10/34/55 CAPSULE.DR. PO ×3 (08:36→18:21)
[2017-06-24] MEDS: ISOSORBIDE MONONITRATE ER 30 MG TAB.ER.24H PO (08:37)
[2017-06-24] MEDS: POTASSIUM CHLORIDE 10 MEQ TABLET.ER. PO (08:37)
[2017-06-24] MEDS: AZITHROMYCIN 250 MG TABLET. PO (08:37)
[2017-06-24 09:31] LABS: ADD MAN DIFF? NO
[2017-06-24 09:39] LABS: BASO % 0 % (0-3); EOS % 0 % (0-3); HEMATOCRIT 48.5 % (36.0-47.0); LYMPH # 0.2 x10^3/uL (1.0-4.8); LYMPH % 1 % (24-48); MEAN CORPUSCULAR HEMOGLOBIN 32 pg (25-35); MEAN CORPUSCULAR HGB CONC 33 g/dL (31-37); MEAN CORPUSCULAR VOLUME 97 fL (79-100); MONO # 1.4 x10^3/uL (0.0-1.1); MONO % 7 % (0-9); NEUT # 19.5 x10^3uL (1.8-7.7); NEUT % 92 % (31-73); PLATELET COUNT 229 x10^3/uL (140-400); RED BLOOD COUNT 4.98 x10^6/uL (3.50-5.40); RED CELL DISTRIBUTION WIDTH 14.2 % (11.5-14.5); WHITE BLOOD COUNT 21.2 x10^3/uL (4.0-11.0)
[2017-06-24 09:46] LABS: ANION GAP 12 (6-14); BLOOD UREA NITROGEN 36 mg/dL (7-20); CALCIUM 8.8 mg/dL (8.5-10.1); CARBON DIOXIDE 20 mmol/L (21-32); CHLORIDE 106 mmol/L (98-107); CREATININE 1.4 mg/dL (0.6-1.0); GFR 36.2; GLUCOSE 103 mg/dL (70-99); POTASSIUM 3.6 mmol/L (3.5-5.1); SODIUM 138 mmol/L (136-145)
[2017-06-24] MEDS: LACTOBACILLUS RHAMNOSUS GG 1 CAPSULE. PO ×2 (12:56→22:10)
[2017-06-24] MEDS ORDERED: POTASSIUM CHLORIDE 20 MEQ/15 ML ORAL LIQUID. PO (17:45)
[2017-06-24] MEDS ORDERED: ELECTROLYTE (NON-ICU) PROTOCOL MC (17:45)
[2017-06-24] MEDS ORDERED: POTASSIUM CHLORIDE 20 MEQ TABLET.ER. PO (17:45)
[2017-06-24] MEDS ORDERED: MAGNESIUM SULFATE 2GM 50 ML IV (17:45)
[2017-06-24] MEDS ORDERED: POTASSIUM CHLORIDE 20 MEQ/15 ML ORAL LIQUID. FT (17:45)
[2017-06-24] MEDS ORDERED: POTASSIUM CHLORIDE 20MEQ 50 ML IV ×3 (18:00→18:30)
[2017-06-24 18:43] LABS: ANION GAP 12 (6-14); BLOOD UREA NITROGEN 37 mg/dL (7-20); CALCIUM 7.6 mg/dL (8.5-10.1); CARBON DIOXIDE 22 mmol/L (21-32); CHLORIDE 109 mmol/L (98-107); CREATININE 1.4 mg/dL (0.6-1.0); GFR 36.2; GLUCOSE 147 mg/dL (70-99); POTASSIUM 3.9 mmol/L (3.5-5.1); SODIUM 143 mmol/L (136-145)
[2017-06-24 18:48] LABS: MAGNESIUM 1.8 mg/dL (1.8-2.4); PHOSPHORUS 2.2 mg/dL (2.6-4.7)
[2017-06-24] MEDS ORDERED: MAGNESIUM OXIDE 400 MG TABLET PO (21:00)
[2017-06-25 00:12] LABS: SPECIMEN SOURCE Urine (.); STREP PNEUMO ANTIGEN Negative (Negative)
[2017-06-25 00:12] LABS: LEGIONELLA AG UR Negative (Negative)
[2017-06-25] MEDS: MEROPENEM IV Push 500 MG VIAL. IVP ×3 (06:05→21:48)
[2017-06-25] MEDS: PANTOPRAZOLE 40 MG TABLET.DR. PO (06:25)
[2017-06-25 08:46] LABS: ADD MAN DIFF? NO
[2017-06-25 09:05] LABS: BASO # 0.1 x10^3/uL (0.0-0.2); BASO % 0 % (0-3); EOS % 0 % (0-3); HEMATOCRIT 44.8 % (36.0-47.0); HEMOGLOBIN 14.8 g/dL (12.0-15.5); LYMPH # 0.2 x10^3/uL (1.0-4.8); LYMPH % 1 % (24-48); MEAN CORPUSCULAR HEMOGLOBIN 32 pg (25-35); MEAN CORPUSCULAR HGB CONC 33 g/dL (31-37); MEAN CORPUSCULAR VOLUME 98 fL (79-100); MONO # 1.4 x10^3/uL (0.0-1.1); MONO % 8 % (0-9); NEUT # 15.9 x10^3uL (1.8-7.7); NEUT % 90 % (31-73); PLATELET COUNT 231 x10^3/uL (140-400); RED BLOOD COUNT 4.58 x10^6/uL (3.50-5.40); RED CELL DISTRIBUTION WIDTH 14.1 % (11.5-14.5); WHITE BLOOD COUNT 17.6 x10^3/uL (4.0-11.0)
[2017-06-25 09:33] LABS: ALBUMIN 1.9 g/dL (3.4-5.0); ALBUMIN/GLOBULIN RATIO 0.4 (1.0-1.7); ALK PHOS 91 U/L (46-116); ALT (SGPT) 39 U/L (14-59); ANION GAP 11 (6-14); AST (SGOT) 36 U/L (15-37); BLOOD UREA NITROGEN 28 mg/dL (7-20); BUN/CREATININE RATIO 22 (6-20); CALCIUM 8.7 mg/dL (8.5-10.1); CARBON DIOXIDE 23 mmol/L (21-32); CHLORIDE 108 mmol/L (98-107); CREATININE 1.3 mg/dL (0.6-1.0); GFR 39.4; GLUCOSE 130 mg/dL (70-99); POTASSIUM 3.4 mmol/L (3.5-5.1); SODIUM 142 mmol/L (136-145); TOTAL BILIRUBIN 0.4 mg/dL (0.2-1.0); TOTAL PROTEIN 6.8 g/dL (6.4-8.2)
[2017-06-25] MEDS: LACTOBACILLUS RHAMNOSUS GG 1 CAPSULE. PO ×2 (09:49→21:03)
[2017-06-25] MEDS: LIPASE/PROTEAS/AMYLAS 10/34/55 CAPSULE.DR. PO ×3 (09:49→17:00)
[2017-06-25] MEDS: ISOSORBIDE MONONITRATE ER 30 MG TAB.ER.24H PO (09:50)
[2017-06-25] MEDS: AZITHROMYCIN 250 MG TABLET. PO (09:55)
[2017-06-25] MEDS: POTASSIUM PHOSPHATE DIBASIC 13.6 MMOL in IV NORMAL SALINE 100ML 100 ML IV ×3 (11:08→15:12)
[2017-06-25] MEDS: ALBUMIN HUMAN 25% 100 ML IV ×2 (16:30→21:03)
[2017-06-25 21:58] LABS: C DIFF BY PCR Positive (Negative)
[2017-06-26] MEDS: MEROPENEM IV Push 500 MG VIAL. IVP ×3 (06:02→22:47)
[2017-06-26] MEDS: PANTOPRAZOLE 40 MG TABLET.DR. PO (06:41)
[2017-06-26 07:34] LABS: ADD MAN DIFF? NO
[2017-06-26 07:40] LABS: BASO % 0 % (0-3); EOS # 0.1 x10^3/uL (0.0-0.7); EOS % 1 % (0-3); HEMATOCRIT 38.8 % (36.0-47.0); HEMOGLOBIN 12.5 g/dL (12.0-15.5); LYMPH # 0.3 x10^3/uL (1.0-4.8); LYMPH % 2 % (24-48); MEAN CORPUSCULAR HEMOGLOBIN 32 pg (25-35); MEAN CORPUSCULAR HGB CONC 32 g/dL (31-37); MEAN CORPUSCULAR VOLUME 98 fL (79-100); MONO # 1.4 x10^3/uL (0.0-1.1); MONO % 8 % (0-9); NEUT # 15.2 x10^3uL (1.8-7.7); NEUT % 90 % (31-73); PLATELET COUNT 236 x10^3/uL (140-400); RED BLOOD COUNT 3.97 x10^6/uL (3.50-5.40); RED CELL DISTRIBUTION WIDTH 14.3 % (11.5-14.5)
[2017-06-26 08:00] LABS: ANION GAP 11 (6-14); BLOOD UREA NITROGEN 26 mg/dL (7-20); CALCIUM 8.2 mg/dL (8.5-10.1); CARBON DIOXIDE 23 mmol/L (21-32); CHLORIDE 111 mmol/L (98-107); CREATININE 1.1 mg/dL (0.6-1.0); GFR 47.8; GLUCOSE 130 mg/dL (70-99); MAGNESIUM 1.9 mg/dL (1.8-2.4); POTASSIUM 4.1 mmol/L (3.5-5.1); SODIUM 145 mmol/L (136-145)
[2017-06-26] MEDS ORDERED: VANCOMYCIN 250 MG/5 ML ORAL SOLUTION. PO (09:00)
[2017-06-26] MEDS: ALBUMIN HUMAN 25% 100 ML IV ×2 (09:13→22:28)
[2017-06-26] MEDS: AZITHROMYCIN 250 MG TABLET. PO (09:14)
[2017-06-26] MEDS: ISOSORBIDE MONONITRATE ER 30 MG TAB.ER.24H PO (09:14)
[2017-06-26] MEDS: LACTOBACILLUS RHAMNOSUS GG 1 CAPSULE. PO ×2 (09:16→22:28)
[2017-06-26] MEDS: fentaNYL 50MCG/HR PATCH 1 PATCH PATCH.TD72 TD (09:16)
[2017-06-26] MEDS: LIPASE/PROTEAS/AMYLAS 10/34/55 CAPSULE.DR. PO ×3 (09:16→17:00)
[2017-06-26] MEDS: VANCOMYCIN 125 MG/2.5 ML ORAL SOLUTION. PO ×3 (12:41→22:44)
[2017-06-26 15:27] LABS: BASE EXCESS ABG 0 mmol/L (-3-3); HCO3 ABG 23 mmol/L (21-28); PCO2 ABG 30 mmHg (35-46); SAT O2 ABG 87 % (92-99)
[2017-06-26 15:31] LABS: FIO2 ABG 40; PO2 ABG 50 mmHg (65-108)
[2017-06-26] MEDS: FUROSEMIDE 40 MG/4 ML VIAL. IVP ×2 (17:30→17:34)
[2017-06-26] MEDS: methylPREDNISolone SOD SUCC PF 125 MG/2 ML VIAL. IV ×2 (17:45→22:28)
[2017-06-26] MEDS ORDERED: methylPREDNISolone SOD SUCC PF 125 MG/2 ML VIAL. IV (22:00)
[2017-06-27 05:02] LABS: ADD MAN DIFF? NO
[2017-06-27 05:04] LABS: BASO % 0 % (0-3); EOS % 0 % (0-3); HEMATOCRIT 35.8 % (36.0-47.0); HEMOGLOBIN 11.8 g/dL (12.0-15.5); LYMPH # 0.2 x10^3/uL (1.0-4.8); LYMPH % 2 % (24-48); MEAN CORPUSCULAR HEMOGLOBIN 32 pg (25-35); MEAN CORPUSCULAR HGB CONC 33 g/dL (31-37); MEAN CORPUSCULAR VOLUME 97 fL (79-100); MONO # 0.2 x10^3/uL (0.0-1.1); MONO % 2 % (0-9); NEUT # 9.3 x10^3uL (1.8-7.7); NEUT % 96 % (31-73); PLATELET COUNT 223 x10^3/uL (140-400); RED BLOOD COUNT 3.68 x10^6/uL (3.50-5.40); RED CELL DISTRIBUTION WIDTH 13.9 % (11.5-14.5); WHITE BLOOD COUNT 9.7 x10^3/uL (4.0-11.0)
[2017-06-27 05:27] LABS: ALBUMIN/GLOBULIN RATIO 0.8 (1.0-1.7); ALK PHOS 72 U/L (46-116); ALT (SGPT) 49 U/L (14-59); ANION GAP 11 (6-14); AST (SGOT) 44 U/L (15-37); BLOOD UREA NITROGEN 34 mg/dL (7-20); BUN/CREATININE RATIO 31 (6-20); CALCIUM 8.7 mg/dL (8.5-10.1); CARBON DIOXIDE 26 mmol/L (21-32); CHLORIDE 106 mmol/L (98-107); CREATININE 1.1 mg/dL (0.6-1.0); GFR 47.8; GLUCOSE 154 mg/dL (70-99); SODIUM 143 mmol/L (136-145); TOTAL BILIRUBIN 0.4 mg/dL (0.2-1.0); TOTAL PROTEIN 6.7 g/dL (6.4-8.2)
[2017-06-27] MEDS: MEROPENEM IV Push 500 MG VIAL. IVP ×3 (05:51→21:51)
[2017-06-27] MEDS: methylPREDNISolone SOD SUCC PF 125 MG/2 ML VIAL. IV ×3 (05:54→21:49)
[2017-06-27] MEDS: PANTOPRAZOLE 40 MG TABLET.DR. PO (05:55)
[2017-06-27] MEDS: ALBUMIN HUMAN 25% 100 ML IV ×2 (09:57→21:47)
[2017-06-27] MEDS: AZITHROMYCIN 250 MG TABLET. PO ×2 (09:58→10:18)
[2017-06-27] MEDS: VANCOMYCIN 125 MG/2.5 ML ORAL SOLUTION. PO ×4 (09:58→21:51)
[2017-06-27] MEDS: LACTOBACILLUS RHAMNOSUS GG 1 CAPSULE. PO ×3 (09:58→21:50)
[2017-06-27] MEDS: LIPASE/PROTEAS/AMYLAS 10/34/55 CAPSULE.DR. PO ×3 (09:58→17:14)
[2017-06-27] MEDS: ISOSORBIDE MONONITRATE ER 30 MG TAB.ER.24H PO ×2 (09:59→10:18)
[2017-06-27] MEDS: FUROSEMIDE 40 MG/4 ML VIAL. IVP (17:53)
[2017-06-28] MEDS: MEROPENEM IV Push 500 MG VIAL. IVP (05:44)
[2017-06-28] MEDS: methylPREDNISolone SOD SUCC PF 125 MG/2 ML VIAL. IV ×3 (05:45→21:20)
[2017-06-28] MEDS: PANTOPRAZOLE 40 MG TABLET.DR. PO (05:49)
[2017-06-28 06:16] LABS: ADD MAN DIFF? NO
[2017-06-28 06:20] LABS: BASO % 0 % (0-3); EOS % 0 % (0-3); HEMATOCRIT 33.8 % (36.0-47.0); HEMOGLOBIN 11.2 g/dL (12.0-15.5); LYMPH # 0.2 x10^3/uL (1.0-4.8); LYMPH % 2 % (24-48); MEAN CORPUSCULAR HEMOGLOBIN 33 pg (25-35); MEAN CORPUSCULAR HGB CONC 33 g/dL (31-37); MEAN CORPUSCULAR VOLUME 98 fL (79-100); MONO # 0.7 x10^3/uL (0.0-1.1); MONO % 7 % (0-9); NEUT # 8.6 x10^3uL (1.8-7.7); NEUT % 91 % (31-73); PLATELET COUNT 253 x10^3/uL (140-400); RED BLOOD COUNT 3.44 x10^6/uL (3.50-5.40); RED CELL DISTRIBUTION WIDTH 14.1 % (11.5-14.5); WHITE BLOOD COUNT 9.5 x10^3/uL (4.0-11.0)
[2017-06-28 06:39] LABS: ALBUMIN 3.5 g/dL (3.4-5.0); ALBUMIN/GLOBULIN RATIO 1.1 (1.0-1.7); ALK PHOS 65 U/L (46-116); ALT (SGPT) 63 U/L (14-59); ANION GAP 7 (6-14); AST (SGOT) 54 U/L (15-37); BLOOD UREA NITROGEN 60 mg/dL (7-20); BUN/CREATININE RATIO 46 (6-20); CALCIUM 8.9 mg/dL (8.5-10.1); CARBON DIOXIDE 29 mmol/L (21-32); CHLORIDE 103 mmol/L (98-107); CREATININE 1.3 mg/dL (0.6-1.0); GFR 39.4; GLUCOSE 131 mg/dL (70-99); POTASSIUM 3.9 mmol/L (3.5-5.1); SODIUM 139 mmol/L (136-145); TOTAL BILIRUBIN 0.3 mg/dL (0.2-1.0); TOTAL PROTEIN 6.7 g/dL (6.4-8.2)
[2017-06-28] MEDS: VANCOMYCIN 125 MG/2.5 ML ORAL SOLUTION. PO ×4 (08:34→21:19)
[2017-06-28] MEDS: LIPASE/PROTEAS/AMYLAS 10/34/55 CAPSULE.DR. PO ×3 (08:34→17:30)
[2017-06-28] MEDS: LACTOBACILLUS RHAMNOSUS GG 1 CAPSULE. PO (21:20)
[2017-06-29] MEDS: methylPREDNISolone SOD SUCC PF 125 MG/2 ML VIAL. IV ×3 (06:03→20:56)
[2017-06-29 09:11] LABS: ADD MAN DIFF? NO
[2017-06-29 09:16] LABS: BASO % 0 % (0-3); EOS % 0 % (0-3); HEMATOCRIT 38.8 % (36.0-47.0); HEMOGLOBIN 13.1 g/dL (12.0-15.5); LYMPH # 0.2 x10^3/uL (1.0-4.8); LYMPH % 2 % (24-48); MEAN CORPUSCULAR HEMOGLOBIN 33 pg (25-35); MEAN CORPUSCULAR HGB CONC 34 g/dL (31-37); MEAN CORPUSCULAR VOLUME 97 fL (79-100); MONO # 0.5 x10^3/uL (0.0-1.1); MONO % 5 % (0-9); NEUT # 9.5 x10^3uL (1.8-7.7); NEUT % 93 % (31-73); PLATELET COUNT 287 x10^3/uL (140-400); RED CELL DISTRIBUTION WIDTH 13.8 % (11.5-14.5); WHITE BLOOD COUNT 10.2 x10^3/uL (4.0-11.0)
[2017-06-29 09:40] LABS: ALBUMIN 3.1 g/dL (3.4-5.0); ALBUMIN/GLOBULIN RATIO 0.9 (1.0-1.7); ALK PHOS 78 U/L (46-116); ALT (SGPT) 59 U/L (14-59); ANION GAP 10 (6-14); AST (SGOT) 34 U/L (15-37); BLOOD UREA NITROGEN 76 mg/dL (7-20); BUN/CREATININE RATIO 69 (6-20); CALCIUM 9.5 mg/dL (8.5-10.1); CARBON DIOXIDE 26 mmol/L (21-32); CHLORIDE 103 mmol/L (98-107); CREATININE 1.1 mg/dL (0.6-1.0); GFR 47.8; GLUCOSE 124 mg/dL (70-99); POTASSIUM 4.3 mmol/L (3.5-5.1); SODIUM 139 mmol/L (136-145); TOTAL BILIRUBIN 0.4 mg/dL (0.2-1.0); TOTAL PROTEIN 6.7 g/dL (6.4-8.2)
[2017-06-29] MEDS: LIPASE/PROTEAS/AMYLAS 10/34/55 CAPSULE.DR. PO ×3 (09:43→17:25)
[2017-06-29] MEDS: ISOSORBIDE MONONITRATE ER 30 MG TAB.ER.24H PO (09:43)
[2017-06-29] MEDS: AZITHROMYCIN 250 MG TABLET. PO (09:43)
[2017-06-29] MEDS: PANTOPRAZOLE 40 MG TABLET.DR. PO (09:43)
[2017-06-29] MEDS: LACTOBACILLUS RHAMNOSUS GG 1 CAPSULE. PO ×2 (09:43→20:56)
[2017-06-29] MEDS: fentaNYL 50MCG/HR PATCH 1 PATCH PATCH.TD72 TD (09:47)
[2017-06-29] MEDS: VANCOMYCIN 125 MG/2.5 ML ORAL SOLUTION. PO ×4 (10:56→20:56)
[2017-06-30 05:42] LABS: ANION GAP 9 (6-14); BLOOD UREA NITROGEN 78 mg/dL (7-20); CALCIUM 8.6 mg/dL (8.5-10.1); CARBON DIOXIDE 27 mmol/L (21-32); CHLORIDE 101 mmol/L (98-107); GFR 53.3; GLUCOSE 107 mg/dL (70-99); POTASSIUM 4.5 mmol/L (3.5-5.1); SODIUM 137 mmol/L (136-145)
[2017-06-30] MEDS: methylPREDNISolone SOD SUCC PF 125 MG/2 ML VIAL. IV (06:03)
[2017-06-30] MEDS: PANTOPRAZOLE 40 MG TABLET.DR. PO (06:03)
[2017-06-30] MEDS: LIPASE/PROTEAS/AMYLAS 10/34/55 CAPSULE.DR. PO ×3 (08:25→16:58)
[2017-06-30] MEDS: VANCOMYCIN 125 MG/2.5 ML ORAL SOLUTION. PO ×4 (08:25→20:56)
[2017-06-30] MEDS: LACTOBACILLUS RHAMNOSUS GG 1 CAPSULE. PO ×2 (08:25→20:56)
[2017-06-30] MEDS: ISOSORBIDE MONONITRATE ER 30 MG TAB.ER.24H PO (08:26)
[2017-06-30] MEDS: ONDANSETRON ODT 4 MG TAB.RAPDIS. PO (08:26)
[2017-06-30] MEDS: methylPREDNISolone SOD SUCC PF 40 MG/ML VIAL. IV ×2 (13:37→20:57)
[2017-06-30] MEDS: ENOXAPARIN 30 MG/0.3 ML SYRINGE. SQ (13:38)
[2017-06-30] MEDS: TAMSULOSIN 0.4 MG CAP.ER.24H. PO (20:56)
[2017-07-01] MEDS: PANTOPRAZOLE 40 MG TABLET.DR. PO (06:17)
[2017-07-01] MEDS: methylPREDNISolone SOD SUCC PF 40 MG/ML VIAL. IV ×3 (06:18→21:09)
[2017-07-01 09:44] LABS: HEMATOCRIT 43.1 % (36.0-47.0); HEMOGLOBIN 14.2 g/dL (12.0-15.5); MEAN CORPUSCULAR HEMOGLOBIN 32 pg (25-35); MEAN CORPUSCULAR HGB CONC 33 g/dL (31-37); MEAN CORPUSCULAR VOLUME 98 fL (79-100); PLATELET COUNT 272 x10^3/uL (140-400); RED BLOOD COUNT 4.43 x10^6/uL (3.50-5.40); RED CELL DISTRIBUTION WIDTH 14.1 % (11.5-14.5)
[2017-07-01] MEDS: ISOSORBIDE MONONITRATE ER 30 MG TAB.ER.24H PO (10:07)
[2017-07-01 10:08] LABS: ALBUMIN/GLOBULIN RATIO 0.8 (1.0-1.7); ALK PHOS 84 U/L (46-116); ALT (SGPT) 42 U/L (14-59); ANION GAP 12 (6-14); AST (SGOT) 23 U/L (15-37); BLOOD UREA NITROGEN 90 mg/dL (7-20); BUN/CREATININE RATIO 75 (6-20); CALCIUM 9.2 mg/dL (8.5-10.1); CARBON DIOXIDE 25 mmol/L (21-32); CHLORIDE 100 mmol/L (98-107); CREATININE 1.2 mg/dL (0.6-1.0); GFR 43.2; GLUCOSE 136 mg/dL (70-99); POTASSIUM 4.7 mmol/L (3.5-5.1); SODIUM 137 mmol/L (136-145); TOTAL BILIRUBIN 0.4 mg/dL (0.2-1.0); TOTAL PROTEIN 6.9 g/dL (6.4-8.2)
[2017-07-01] MEDS: LIPASE/PROTEAS/AMYLAS 10/34/55 CAPSULE.DR. PO ×3 (10:08→18:05)
[2017-07-01] MEDS: LACTOBACILLUS RHAMNOSUS GG 1 CAPSULE. PO ×2 (10:08→21:09)
[2017-07-01] MEDS: VANCOMYCIN 125 MG/2.5 ML ORAL SOLUTION. PO ×4 (10:08→21:10)
[2017-07-01] MEDS: ENOXAPARIN 30 MG/0.3 ML SYRINGE. SQ (12:40)
[2017-07-01] MEDS: TAMSULOSIN 0.4 MG CAP.ER.24H. PO (21:09)
[2017-07-02] MEDS: PANTOPRAZOLE 40 MG TABLET.DR. PO (05:48)
[2017-07-02] MEDS: methylPREDNISolone SOD SUCC PF 40 MG/ML VIAL. IV ×2 (05:48→11:55)
[2017-07-02] MEDS: SODIUM CHLORIDE 0.65% NASAL SPRAY 45ML BOTTLE. NS (08:59)
[2017-07-02] MEDS: fentaNYL 50MCG/HR PATCH 1 PATCH PATCH.TD72 TD (09:00)
[2017-07-02] MEDS: LACTOBACILLUS RHAMNOSUS GG 1 CAPSULE. PO (09:00)
[2017-07-02] MEDS: ONDANSETRON ODT 4 MG TAB.RAPDIS. PO (09:00)
[2017-07-02] MEDS: LIPASE/PROTEAS/AMYLAS 10/34/55 CAPSULE.DR. PO ×2 (09:00→11:54)
[2017-07-02] MEDS: VANCOMYCIN 125 MG/2.5 ML ORAL SOLUTION. PO ×2 (09:00→11:54)
[2017-07-02] MEDS: ISOSORBIDE MONONITRATE ER 30 MG TAB.ER.24H PO (09:01)
[2017-07-02] MEDS: ENOXAPARIN 30 MG/0.3 ML SYRINGE. SQ (11:55)
[2017-07-02 12:56] LABS: HEMATOCRIT 36.5 % (36.0-47.0); HEMOGLOBIN 12.4 g/dL (12.0-15.5); MEAN CORPUSCULAR HEMOGLOBIN 33 pg (25-35); MEAN CORPUSCULAR HGB CONC 34 g/dL (31-37); MEAN CORPUSCULAR VOLUME 97 fL (79-100); PLATELET COUNT 297 x10^3/uL (140-400); RED BLOOD COUNT 3.79 x10^6/uL (3.50-5.40); RED CELL DISTRIBUTION WIDTH 13.9 % (11.5-14.5)
[2017-07-02 13:11] LABS: ANION GAP 5 (6-14); BLOOD UREA NITROGEN 83 mg/dL (7-20); CALCIUM 8.2 mg/dL (8.5-10.1); CARBON DIOXIDE 31 mmol/L (21-32); CHLORIDE 98 mmol/L (98-107); CREATININE 1.2 mg/dL (0.6-1.0); GFR 43.2; GLUCOSE 142 mg/dL (70-99); POTASSIUM 4.9 mmol/L (3.5-5.1); SODIUM 134 mmol/L (136-145)
[2017-07-02] MEDS: HEPARIN PF 500 UNIT/5 ML DISP.SYRIN. IV (14:31)
== END 2017-07-02 15:30 | DRG 871 ==
LOC: ER 06:07 → 2 NORTH 06-24 16:29 → ED HOLD 09:00 → 1 WEST ICU 10:14
DX: A41.9 Sepsis, unspecified organism (principal); J18.9 Pneumonia, unspecified organism; J96.21 Acute and chronic respiratory failure with hypoxia; E43 Unspecified severe protein-calorie malnutrition; I13.0 Hypertensive heart and chronic kidney disease with heart failure and stage 1 through stage 4 chronic kidney disease, or unspecified chronic kidney disease; N17.9 Acute kidney failure, unspecified; E87.0 Hyperosmolality and hypernatremia; A04.72 Enterocolitis due to Clostridium difficile, not specified as recurrent; I50.9 Heart failure, unspecified; I42.0 Dilated cardiomyopathy; G90.50 Complex regional pain syndrome I, unspecified; J44.0 Chronic obstructive pulmonary disease with (acute) lower respiratory infection; J44.1 Chronic obstructive pulmonary disease with (acute) exacerbation; Z68.1 Body mass index [BMI] 19.9 or less, adult; E86.0 Dehydration; F03.90 Unspecified dementia, unspecified severity, without behavioral disturbance, psychotic disturbance, mood disturbance, and anxiety; E78.5 Hyperlipidemia, unspecified; I25.10 Atherosclerotic heart disease of native coronary artery without angina pectoris; I73.9 Peripheral vascular disease, unspecified; K21.9 Gastro-esophageal reflux disease without esophagitis; K58.9 Irritable bowel syndrome, unspecified; Z96.653 Presence of artificial knee joint, bilateral; F41.9 Anxiety disorder, unspecified; M19.90 Unspecified osteoarthritis, unspecified site; N18.3 Chronic kidney disease, stage 3 (moderate); Z82.49 Family history of ischemic heart disease and other diseases of the circulatory system; Z90.710 Acquired absence of both cervix and uterus; Z87.891 Personal history of nicotine dependence; Z95.5 Presence of coronary angioplasty implant and graft; Z90.49 Acquired absence of other specified parts of digestive tract; Z88.1 Allergy status to other antibiotic agents; Z91.041 Radiographic dye allergy status; Z88.5 Allergy status to narcotic agent; Z88.8 Allergy status to other drugs, medicaments and biological substances; Z91.048 Other nonmedicinal substance allergy status; I25.2 Old myocardial infarction
CPT/HCPCS: 36415; 36600; 71045; 80048; 80053; 81001; 82805; 83605; 83735; 83880; 84100; 84484; 85007; 85025; 85027; 87040; 87086; 87324; 87449; 87641; 87804; 87804-59; 92610-GN; 93005; 96361; 96365; 96368; 97163-GP; 97166-GO; 97530-GO; 97530-GP; 97535-GO; 99291; 99291-25; J1650; J1940; J2020; J2185; J2543; J2920; J2930; J3370; J7030; P9046; Q0144; Q0162

== ENCOUNTER 2017-07-04 15:01 | Inpatient (IN) | payer MEDICARE ==
[2017-07-04] MEDS: IV NORMAL SALINE 1000ML BAG 1,000 ML IV ×11 (15:30→23:38)
[2017-07-04 16:21] LABS: ANION GAP 8 (6-14); BLOOD UREA NITROGEN 72 mg/dL (7-20); BUN/CREATININE RATIO 51 (6-20); CALCIUM 8.4 mg/dL (8.5-10.1); CARBON DIOXIDE 29 mmol/L (21-32); CHLORIDE 100 mmol/L (98-107); CREATININE 1.4 mg/dL (0.6-1.0); GFR 36.2; GLUCOSE 121 mg/dL (70-99); POTASSIUM 5.5 mmol/L (3.5-5.1); SODIUM 137 mmol/L (136-145)
[2017-07-04 16:29] LABS: ALBUMIN 2.5 g/dL (3.4-5.0); ALBUMIN/GLOBULIN RATIO 0.8 (1.0-1.7); ALK PHOS 73 U/L (46-116); ALT (SGPT) 28 U/L (14-59); AST (SGOT) 20 U/L (15-37); TOTAL BILIRUBIN 0.4 mg/dL (0.2-1.0); TOTAL PROTEIN 5.5 g/dL (6.4-8.2)
[2017-07-04 16:29] LABS: TROPONINI 0.034 ng/mL (0.000-0.055)
[2017-07-04 16:32] LABS: THYROID STIM HORMONE (TSH) 0.447 uIU/mL (0.358-3.74)
[2017-07-04 16:57] LABS: BASO % 0 % (0-3); EOS % 0 % (0-3); HEMATOCRIT 31.2 % (36.0-47.0); HEMOGLOBIN 10.7 g/dL (12.0-15.5); LYMPH # 0.1 x10^3/uL (1.0-4.8); LYMPH % 1 % (24-48); MEAN CORPUSCULAR HEMOGLOBIN 33 pg (25-35); MEAN CORPUSCULAR HGB CONC 34 g/dL (31-37); MEAN CORPUSCULAR VOLUME 96 fL (79-100); MONO # 0.7 x10^3/uL (0.0-1.1); MONO % 4 % (0-9); NEUT # 16.5 x10^3uL (1.8-7.7); NEUT % 96 % (31-73); PLATELET COUNT 263 x10^3/uL (140-400); RED BLOOD COUNT 3.24 x10^6/uL (3.50-5.40); RED CELL DISTRIBUTION WIDTH 13.6 % (11.5-14.5); WHITE BLOOD COUNT 17.3 x10^3/uL (4.0-11.0)
[2017-07-04 16:58] LABS: BILIRUBIN,URINE NEGATIVE (NEG); CLARITY,URINE CLEAR; COLOR,URINE YELLOW; GLUCOSE,URINE NEGATIVE (NEG); NITRITE,URINE POSITIVE (NEG); PH,URINE 7.5; PROTEIN,URINE NEGATIVE (NEG-TRACE); UROBILINOGEN,URINE 0.2 mg/dL (0.2 mg/dL)
[2017-07-04 16:59] LABS: ADD MAN DIFF? YES
[2017-07-04 17:07] LABS: BACTERIA,URINE MANY /HPF (0-FEW); RBC,URINE 0 /HPF (0-2); WBC,URINE 20-40 /HPF (0-4)
[2017-07-04 17:40] LABS: % BANDS 1 % (0-9); % MONOS 7 % (0-10); % SEGS 92 % (35-66); PLT ESTIMATE ADEQUATE (ADEQUATE)
[2017-07-04] MEDS ORDERED: ONDANSETRON PF 4 MG/2 ML VIAL. IV (18:15)
[2017-07-04] MEDS: cefTRIAXone IV Push 1 GM VIAL. IVP (20:44)
[2017-07-05] MEDS: IV NORMAL SALINE 1000ML BAG 1,000 ML IV ×7 (00:39→08:37)
[2017-07-05] MEDS: IPRATRPIUM/ALBUTEROL 0.5/2.5MG 3 ML NEBU. NEB ×6 (03:44→19:36)
[2017-07-05] MEDS ORDERED: BISACODYL 5 MG TABLET.DR. PO (09:15)
[2017-07-05] MEDS ORDERED: BISACODYL 10 MG SUPP.RECT. RC (09:15)
[2017-07-05] MEDS ORDERED: SODIUM PHOSPHATES 19/7GM 133 ML ENEMA. RC (09:15)
[2017-07-05] MEDS ORDERED: POTASSIUM CHLORIDE 10 MEQ TABLET.ER. PO (10:00)
[2017-07-05] MEDS ORDERED: POLYETHYLENE GLYCOL 3350 17 GM PACKET. PO ×2 (10:00)
[2017-07-05] MEDS: ALTEPLASE 2 MG VIAL INT CAT ×2 (10:13→12:47)
[2017-07-05] MEDS: LACTOBACILLUS RHAMNOSUS GG 1 CAPSULE. PO ×2 (10:14→21:26)
[2017-07-05] MEDS: metroNIDAZOLE 500 MG TABLET PO ×3 (10:14→21:27)
[2017-07-05] MEDS: PANTOPRAZOLE 40 MG TABLET.DR. PO (10:14)
[2017-07-05] MEDS: METOPROLOL TART IMMED RELEASE 25 MG TABLET. PO ×2 (10:14→21:27)
[2017-07-05] MEDS: APIXABAN 2.5 MG TABLET. PO ×2 (10:14→21:27)
[2017-07-05] MEDS: FUROSEMIDE 20 MG TABLET PO (10:15)
[2017-07-05] MEDS: predniSONE 10 MG TABLET PO ×2 (10:15→21:27)
[2017-07-05] MEDS: fentaNYL 50MCG/HR PATCH 1 PATCH PATCH.TD72 TD (10:16)
[2017-07-05 11:06] LABS: ANION GAP 10 (6-14); BLOOD UREA NITROGEN 57 mg/dL (7-20); CALCIUM 8.2 mg/dL (8.5-10.1); CARBON DIOXIDE 24 mmol/L (21-32); CHLORIDE 105 mmol/L (98-107); CREATININE 1.1 mg/dL (0.6-1.0); GFR 47.8; GLUCOSE 79 mg/dL (70-99); POTASSIUM 4.7 mmol/L (3.5-5.1); SODIUM 139 mmol/L (136-145)
[2017-07-05] MEDS: LIPASE/PROTEAS/AMYLAS 10/34/55 CAPSULE.DR. PO ×2 (12:08→16:56)
[2017-07-05] MEDS: oxyCODONE/APAP 5/325 1 TAB TABLET PO (16:56)
[2017-07-05 20:18] LABS: MRSA BY PCR Negative (Negative)
[2017-07-05] MEDS: TAMSULOSIN 0.4 MG CAP.ER.24H. PO (21:27)
[2017-07-05] MEDS: cefTRIAXone IV Push 1 GM VIAL. IVP (22:38)
[2017-07-06] MEDS: IPRATRPIUM/ALBUTEROL 0.5/2.5MG 3 ML NEBU. NEB ×7 (00:44→23:30)
[2017-07-06] MEDS: metroNIDAZOLE 500 MG TABLET PO ×3 (05:11→20:56)
[2017-07-06] MEDS: PANTOPRAZOLE 40 MG TABLET.DR. PO (07:40)
[2017-07-06] MEDS: ANTI-COAG MONITOR BY PHARMACY. MC (08:15)
[2017-07-06] MEDS: LIPASE/PROTEAS/AMYLAS 10/34/55 CAPSULE.DR. PO ×3 (08:38→17:08)
[2017-07-06] MEDS: LACTOBACILLUS RHAMNOSUS GG 1 CAPSULE. PO ×2 (08:38→20:55)
[2017-07-06] MEDS: FUROSEMIDE 20 MG TABLET PO (08:38)
[2017-07-06] MEDS: APIXABAN 5 MG TABLET. PO ×2 (08:38→20:55)
[2017-07-06] MEDS: predniSONE 10 MG TABLET PO ×2 (08:39→20:56)
[2017-07-06] MEDS: METOPROLOL TART IMMED RELEASE 25 MG TABLET. PO ×2 (08:39→20:56)
[2017-07-06] MEDS: oxyCODONE/APAP 5/325 1 TAB TABLET PO ×3 (08:41→23:41)
[2017-07-06] MEDS: ONDANSETRON ODT 4 MG TAB.RAPDIS. PO ×2 (10:46→21:04)
[2017-07-06 11:51] LABS: ADD MAN DIFF? NO
[2017-07-06 11:55] LABS: BASO # 0.1 x10^3/uL (0.0-0.2); BASO % 1 % (0-3); EOS % 0 % (0-3); HEMOGLOBIN 11.3 g/dL (12.0-15.5); LYMPH # 0.1 x10^3/uL (1.0-4.8); LYMPH % 1 % (24-48); MEAN CORPUSCULAR HEMOGLOBIN 32 pg (25-35); MEAN CORPUSCULAR HGB CONC 33 g/dL (31-37); MEAN CORPUSCULAR VOLUME 97 fL (79-100); MONO # 0.8 x10^3/uL (0.0-1.1); MONO % 6 % (0-9); NEUT # 14.4 x10^3uL (1.8-7.7); NEUT % 93 % (31-73); PLATELET COUNT 284 x10^3/uL (140-400); RED CELL DISTRIBUTION WIDTH 14.2 % (11.5-14.5); WHITE BLOOD COUNT 15.5 x10^3/uL (4.0-11.0)
[2017-07-06 12:12] LABS: ANION GAP 10 (6-14); BLOOD UREA NITROGEN 53 mg/dL (7-20); CALCIUM 8.4 mg/dL (8.5-10.1); CARBON DIOXIDE 24 mmol/L (21-32); CHLORIDE 103 mmol/L (98-107); CREATININE 1.1 mg/dL (0.6-1.0); GFR 47.8; GLUCOSE 144 mg/dL (70-99); POTASSIUM 4.2 mmol/L (3.5-5.1); SODIUM 137 mmol/L (136-145)
[2017-07-06] MEDS: IV DEXTROSE 5 %-0.45 % NACL 1,000 ML IV (14:35)
[2017-07-06] MEDS: TAMSULOSIN 0.4 MG CAP.ER.24H. PO (20:56)
[2017-07-06] MEDS: cefTRIAXone IV Push 1 GM VIAL. IVP (20:58)
[2017-07-07] MEDS: IPRATRPIUM/ALBUTEROL 0.5/2.5MG 3 ML NEBU. NEB ×6 (03:32→23:41)
[2017-07-07] MEDS: IV DEXTROSE 5 %-0.45 % NACL 1,000 ML IV ×2 (03:55→15:49)
[2017-07-07] MEDS: oxyCODONE/APAP 5/325 1 TAB TABLET PO ×2 (05:31→14:48)
[2017-07-07] MEDS: metroNIDAZOLE 500 MG TABLET PO ×3 (05:31→22:15)
[2017-07-07] MEDS: ONDANSETRON ODT 4 MG TAB.RAPDIS. PO ×2 (05:32→16:09)
[2017-07-07] MEDS: LIPASE/PROTEAS/AMYLAS 10/34/55 CAPSULE.DR. PO ×3 (08:13→17:47)
[2017-07-07] MEDS: PANTOPRAZOLE 40 MG TABLET.DR. PO (08:13)
[2017-07-07] MEDS: ANTI-COAG MONITOR BY PHARMACY. MC (08:38)
[2017-07-07] MEDS: METOPROLOL TART IMMED RELEASE 25 MG TABLET. PO ×2 (09:00→22:15)
[2017-07-07] MEDS: APIXABAN 5 MG TABLET. PO ×2 (09:14→22:16)
[2017-07-07] MEDS: predniSONE 10 MG TABLET PO ×2 (09:14→22:15)
[2017-07-07] MEDS: LACTOBACILLUS RHAMNOSUS GG 1 CAPSULE. PO ×2 (09:14→22:15)
[2017-07-07] MEDS ORDERED: CEFPODOXIME PROXETIL 100 MG TABLET. PO (21:00)
[2017-07-07] MEDS: NITROGLYCERIN SUBLINGUAL 0.4 MG BOTTLE OF 25. SL ×2 (21:28→21:33)
[2017-07-07 22:10] LABS: BASO % 0 % (0-3); EOS % 0 % (0-3); HEMOGLOBIN 12.3 g/dL (12.0-15.5); LYMPH # 0.1 x10^3/uL (1.0-4.8); LYMPH % 1 % (24-48); MEAN CORPUSCULAR HEMOGLOBIN 32 pg (25-35); MEAN CORPUSCULAR HGB CONC 33 g/dL (31-37); MEAN CORPUSCULAR VOLUME 97 fL (79-100); MONO # 0.8 x10^3/uL (0.0-1.1); MONO % 6 % (0-9); NEUT # 13.4 x10^3uL (1.8-7.7); NEUT % 93 % (31-73); PLATELET COUNT 326 x10^3/uL (140-400); RED BLOOD COUNT 3.84 x10^6/uL (3.50-5.40); RED CELL DISTRIBUTION WIDTH 14.3 % (11.5-14.5); WHITE BLOOD COUNT 14.3 x10^3/uL (4.0-11.0)
[2017-07-07 22:11] LABS: ADD MAN DIFF? YES
[2017-07-07] MEDS: CEFPODOXIME PROXETIL 100 MG TABLET. PO (22:14)
[2017-07-07] MEDS: TAMSULOSIN 0.4 MG CAP.ER.24H. PO (22:15)
[2017-07-07] MEDS: NITROGLYCERIN OINT 1 GM PACKET. TP (22:16)
[2017-07-07 22:21] LABS: ANION GAP 11 (6-14); BLOOD UREA NITROGEN 46 mg/dL (7-20); BUN/CREATININE RATIO 38 (6-20); CALCIUM 8.7 mg/dL (8.5-10.1); CARBON DIOXIDE 24 mmol/L (21-32); CHLORIDE 101 mmol/L (98-107); CREATININE 1.2 mg/dL (0.6-1.0); GFR 43.2; GLUCOSE 162 mg/dL (70-99); POTASSIUM 4.6 mmol/L (3.5-5.1); SODIUM 136 mmol/L (136-145)
[2017-07-07 22:27] LABS: % MONOS 5 % (0-10); % SEGS 95 % (35-66); ALBUMIN 2.5 g/dL (3.4-5.0); ALBUMIN/GLOBULIN RATIO 0.7 (1.0-1.7); ALK PHOS 81 U/L (46-116); ALT (SGPT) 25 U/L (14-59); AST (SGOT) 16 U/L (15-37); MAGNESIUM 1.7 mg/dL (1.8-2.4); PHOSPHORUS 2.8 mg/dL (2.6-4.7); PLT ESTIMATE ADEQUATE (ADEQUATE); TOTAL BILIRUBIN 0.3 mg/dL (0.2-1.0); TOTAL PROTEIN 6.2 g/dL (6.4-8.2)
[2017-07-07 22:28] LABS: TROPONINI 0.051 ng/mL (0.000-0.055)
[2017-07-07 22:34] LABS: CKMB MASS 2.1 ng/mL (0.0-3.6)
[2017-07-07 22:38] LABS: CREATINE KINASE 36 U/L (26-192)
[2017-07-08] MEDS: IPRATRPIUM/ALBUTEROL 0.5/2.5MG 3 ML NEBU. NEB ×6 (03:32→23:13)
[2017-07-08] MEDS: metroNIDAZOLE 500 MG TABLET PO ×3 (05:44→21:09)
[2017-07-08] MEDS: NITROGLYCERIN SUBLINGUAL 0.4 MG BOTTLE OF 25. SL (05:44)
[2017-07-08] MEDS: NITROGLYCERIN OINT 1 GM PACKET. TP ×3 (05:52→19:24)
[2017-07-08] MEDS: IV DEXTROSE 5 %-0.45 % NACL 1,000 ML IV (05:58)
[2017-07-08] MEDS: PANTOPRAZOLE 40 MG TABLET.DR. PO (08:03)
[2017-07-08] MEDS: LIPASE/PROTEAS/AMYLAS 10/34/55 CAPSULE.DR. PO ×3 (08:03→17:07)
[2017-07-08] MEDS ORDERED: MORPHINE SULFATE 20 MG/ML CONC SOLUTION. SL (08:30)
[2017-07-08] MEDS: APIXABAN 5 MG TABLET. PO ×2 (09:21→21:10)
[2017-07-08] MEDS: CEFPODOXIME PROXETIL 100 MG TABLET. PO ×2 (09:21→21:10)
[2017-07-08] MEDS: predniSONE 10 MG TABLET PO ×2 (09:21→21:10)
[2017-07-08] MEDS: LACTOBACILLUS RHAMNOSUS GG 1 CAPSULE. PO ×2 (09:21→21:10)
[2017-07-08] MEDS: fentaNYL 50MCG/HR PATCH 1 PATCH PATCH.TD72 TD (09:22)
[2017-07-08] MEDS: METOPROLOL TART IMMED RELEASE 25 MG TABLET. PO ×2 (09:22→21:11)
[2017-07-08] MEDS: oxyCODONE/APAP 5/325 1 TAB TABLET PO (21:10)
[2017-07-08] MEDS: TAMSULOSIN 0.4 MG CAP.ER.24H. PO (21:10)
[2017-07-09] MEDS: ONDANSETRON ODT 4 MG TAB.RAPDIS. PO (03:57)
[2017-07-09] MEDS: oxyCODONE/APAP 5/325 1 TAB TABLET PO ×2 (03:57→10:11)
[2017-07-09] MEDS: HYDROCORTISONE ACETATE 25 MG SUPP.RECT RC (03:58)
[2017-07-09] MEDS: IPRATRPIUM/ALBUTEROL 0.5/2.5MG 3 ML NEBU. NEB ×3 (04:03→12:02)
[2017-07-09] MEDS: metroNIDAZOLE 500 MG TABLET PO ×2 (06:27→13:26)
[2017-07-09] MEDS: NITROGLYCERIN OINT 1 GM PACKET. TP ×2 (06:27→13:26)
[2017-07-09] MEDS: CEFPODOXIME PROXETIL 100 MG TABLET. PO (08:51)
[2017-07-09] MEDS: METOPROLOL TART IMMED RELEASE 25 MG TABLET. PO (08:51)
[2017-07-09] MEDS: LIPASE/PROTEAS/AMYLAS 10/34/55 CAPSULE.DR. PO ×2 (08:51→11:41)
[2017-07-09] MEDS: LACTOBACILLUS RHAMNOSUS GG 1 CAPSULE. PO (08:52)
[2017-07-09] MEDS: predniSONE 10 MG TABLET PO (08:52)
[2017-07-09] MEDS: APIXABAN 5 MG TABLET. PO (08:52)
[2017-07-09] MEDS: PANTOPRAZOLE 40 MG TABLET.DR. PO (08:52)
[2017-07-09] MEDS: HEPARIN PF 500 UNIT/5 ML DISP.SYRIN. IV (13:20)
== END 2017-07-09 15:10 | disposition home or self-care (01) | DRG 871 ==
LOC: ER 15:01 → 5 NORTH 18:04
DX: A41.9 Sepsis, unspecified organism (principal); E43 Unspecified severe protein-calorie malnutrition; N17.9 Acute kidney failure, unspecified; E87.5 Hyperkalemia; I50.9 Heart failure, unspecified; I13.0 Hypertensive heart and chronic kidney disease with heart failure and stage 1 through stage 4 chronic kidney disease, or unspecified chronic kidney disease; E86.0 Dehydration; F03.90 Unspecified dementia, unspecified severity, without behavioral disturbance, psychotic disturbance, mood disturbance, and anxiety; N39.0 Urinary tract infection, site not specified; E78.5 Hyperlipidemia, unspecified; I25.119 Atherosclerotic heart disease of native coronary artery with unspecified angina pectoris; I25.2 Old myocardial infarction; J44.9 Chronic obstructive pulmonary disease, unspecified; K21.9 Gastro-esophageal reflux disease without esophagitis; N18.9 Chronic kidney disease, unspecified; T50.2X5A Adverse effect of carbonic-anhydrase inhibitors, benzothiadiazides and other diuretics, initial encounter; Z82.49 Family history of ischemic heart disease and other diseases of the circulatory system; Z90.710 Acquired absence of both cervix and uterus; Z95.5 Presence of coronary angioplasty implant and graft; Z96.659 Presence of unspecified artificial knee joint; F41.9 Anxiety disorder, unspecified; K59.00 Constipation, unspecified; Z90.49 Acquired absence of other specified parts of digestive tract; M54.9 Dorsalgia, unspecified; Z88.1 Allergy status to other antibiotic agents; Z88.5 Allergy status to narcotic agent; Z88.8 Allergy status to other drugs, medicaments and biological substances; I73.9 Peripheral vascular disease, unspecified; Z87.891 Personal history of nicotine dependence; Z51.5 Encounter for palliative care; Z66 Do not resuscitate
CPT/HCPCS: 36415; 71045; 80048; 80053; 81001; 82553; 83735; 84100; 84443; 84484; 85007; 85025; 87086; 87186; 87641; 93005; 94640; 94760; 96360; 97162-GP; 99285; 99285-25; J0696; J2997; J7030; J7512; J7620; Q0162

== ENCOUNTER 2017-07-15 12:09 | Inpatient (IN) | payer MEDICARE ==
[2017-07-15] MEDS ORDERED: PIP/TAZO PER PHARMACY MC (13:00)
[2017-07-15 13:02] LABS: BASE EXCESS ABG 3 mmol/L (-3-3); HCO3 ABG 27 mmol/L (21-28); PCO2 ABG 38 mmHg (35-46); PH ABG 7.47 (7.35-7.45); PO2 ABG 67 mmHg (65-108); SAT O2 ABG 93 % (92-99)
[2017-07-15 13:03] LABS: FIO2 ABG 40
[2017-07-15] MEDS: FUROSEMIDE 40 MG/4 ML VIAL. IVP (13:13)
[2017-07-15] MEDS ORDERED: ONDANSETRON PF 4 MG/2 ML VIAL. IV (13:45)
[2017-07-15 13:56] LABS: INFLUENZA A PATIENT NEGATIVE (NEGATIVE); INFLUENZA B PATIENT NEGATIVE (NEGATIVE); OBC FLU VALID
[2017-07-15 14:51] LABS: BASO # 0.1 x10^3/uL (0.0-0.2); BASO % 1 % (0-3); EOS # 0.1 x10^3/uL (0.0-0.7); EOS % 1 % (0-3); HEMATOCRIT 31.5 % (36.0-47.0); HEMOGLOBIN 10.7 g/dL (12.0-15.5); LYMPH # 0.3 x10^3/uL (1.0-4.8); LYMPH % 3 % (24-48); MEAN CORPUSCULAR HEMOGLOBIN 33 pg (25-35); MEAN CORPUSCULAR HGB CONC 34 g/dL (31-37); MEAN CORPUSCULAR VOLUME 98 fL (79-100); MONO # 0.5 x10^3/uL (0.0-1.1); MONO % 4 % (0-9); NEUT # 9.5 x10^3uL (1.8-7.7); NEUT % 91 % (31-73); PLATELET COUNT 228 x10^3/uL (140-400); RED BLOOD COUNT 3.23 x10^6/uL (3.50-5.40); RED CELL DISTRIBUTION WIDTH 15.2 % (11.5-14.5); WHITE BLOOD COUNT 10.4 x10^3/uL (4.0-11.0)
[2017-07-15] MEDS: PIPERACILLIN/TAZOBACTAM 3.375 GM in IV NORMAL SALINE 50ML 50 ML IV ×2 (14:51→18:39)
[2017-07-15 14:52] LABS: ADD MAN DIFF? YES
[2017-07-15 15:07] LABS: ANION GAP 12 (6-14); BLOOD UREA NITROGEN 21 mg/dL (7-20); BUN/CREATININE RATIO 19 (6-20); CALCIUM 9.1 mg/dL (8.5-10.1); CARBON DIOXIDE 29 mmol/L (21-32); CHLORIDE 100 mmol/L (98-107); CREATININE 1.1 mg/dL (0.6-1.0); GFR 47.8; GLUCOSE 128 mg/dL (70-99); POTASSIUM 3.2 mmol/L (3.5-5.1); SODIUM 141 mmol/L (136-145)
[2017-07-15] MEDS: VANCOMYCIN 1.25 GM in IV DEXTROSE 5% 250 ML IV (15:11)
[2017-07-15 15:14] LABS: ALBUMIN 2.7 g/dL (3.4-5.0); ALBUMIN/GLOBULIN RATIO 0.6 (1.0-1.7); ALK PHOS 114 U/L (46-116); ALT (SGPT) 20 U/L (14-59); AST (SGOT) 24 U/L (15-37); LIPASE 80 U/L (73-393); TOTAL BILIRUBIN 0.7 mg/dL (0.2-1.0); TOTAL PROTEIN 6.9 g/dL (6.4-8.2)
[2017-07-15 15:28] LABS: LACTIC ACID 1.6 mmol/L (0.4-2.0)
[2017-07-15 15:47] LABS: TROPONINI 1.564 ng/mL (0.000-0.055)
[2017-07-15] MEDS: ASPIRIN CHEWABLE 81 MG TABLET. PO (17:21)
[2017-07-15] MEDS: fentaNYL PF VIAL 100 MCG/2 ML VIAL IV (17:22)
[2017-07-15 17:43] LABS: % BANDS 3 % (0-9); % LYMPHS 3 % (24-48); % MONOS 1 % (0-10); % SEGS 93 % (35-66); PLT ESTIMATE ADEQUATE (ADEQUATE)
[2017-07-15] MEDS: VANCOMYCIN PER PHARMACY MC (18:42)
[2017-07-15] MEDS: LACTOBACILLUS RHAMNOSUS GG 1 CAPSULE. PO (21:00)
[2017-07-15] MEDS: ALBUMIN HUMAN 25% 100 ML IV (21:34)
[2017-07-15] MEDS ORDERED: HYDROCORTISONE ACETATE 25 MG SUPP.RECT RC (21:45)
[2017-07-15] MEDS: TAMSULOSIN 0.4 MG CAP.ER.24H. PO (22:30)
[2017-07-15] MEDS: oxyCODONE/APAP 5/325 1 TAB TABLET PO (22:40)
[2017-07-15] MEDS: FUROSEMIDE 100 MG/10 ML VIAL. IVP (23:20)
[2017-07-15] MEDS: IPRATRPIUM/ALBUTEROL 0.5/2.5MG 3 ML NEBU. NEB (23:54)
[2017-07-16] MEDS ORDERED: IPRATRPIUM/ALBUTEROL 0.5/2.5MG 3 ML NEBU. NEB
[2017-07-16] MEDS: PIPERACILLIN/TAZOBACTAM 3.375 GM in IV NORMAL SALINE 50ML 50 ML IV ×5 (00:07→23:44)
[2017-07-16] MEDS: fentaNYL PF VIAL 100 MCG/2 ML VIAL IV ×3 (01:34→13:22)
[2017-07-16] MEDS: ANTI-COAG MONITOR BY PHARMACY. MC (03:49)
[2017-07-16 04:57] LABS: ADD MAN DIFF? NO
[2017-07-16 05:10] LABS: BASO % 0 % (0-3); EOS # 0.1 x10^3/uL (0.0-0.7); EOS % 1 % (0-3); HEMATOCRIT 26.3 % (36.0-47.0); LYMPH # 0.3 x10^3/uL (1.0-4.8); LYMPH % 4 % (24-48); MEAN CORPUSCULAR HEMOGLOBIN 33 pg (25-35); MEAN CORPUSCULAR HGB CONC 34 g/dL (31-37); MEAN CORPUSCULAR VOLUME 97 fL (79-100); MONO # 0.4 x10^3/uL (0.0-1.1); MONO % 5 % (0-9); NEUT # 7.4 x10^3uL (1.8-7.7); NEUT % 89 % (31-73); PLATELET COUNT 164 x10^3/uL (140-400); RED BLOOD COUNT 2.72 x10^6/uL (3.50-5.40); RED CELL DISTRIBUTION WIDTH 14.8 % (11.5-14.5); WHITE BLOOD COUNT 8.2 x10^3/uL (4.0-11.0)
[2017-07-16] MEDS: oxyCODONE/APAP 5/325 1 TAB TABLET PO ×2 (05:33→11:55)
[2017-07-16] MEDS: ONDANSETRON ODT 4 MG TAB.RAPDIS. PO (05:33)
[2017-07-16 05:57] LABS: ALBUMIN 2.5 g/dL (3.4-5.0); ALBUMIN/GLOBULIN RATIO 0.8 (1.0-1.7); ALK PHOS 81 U/L (46-116); ALT (SGPT) 16 U/L (14-59); ANION GAP 10 (6-14); AST (SGOT) 17 U/L (15-37); BLOOD UREA NITROGEN 22 mg/dL (7-20); BUN/CREATININE RATIO 18 (6-20); CALCIUM 8.2 mg/dL (8.5-10.1); CARBON DIOXIDE 31 mmol/L (21-32); CHLORIDE 101 mmol/L (98-107); CREATININE 1.2 mg/dL (0.6-1.0); GFR 43.2; GLUCOSE 107 mg/dL (70-99); SODIUM 142 mmol/L (136-145); TOTAL BILIRUBIN 0.6 mg/dL (0.2-1.0); TOTAL PROTEIN 5.5 g/dL (6.4-8.2)
[2017-07-16 05:59] LABS: POTASSIUM 2.6 mmol/L (3.5-5.1)
[2017-07-16] MEDS: ALBUMIN HUMAN 25% 100 ML IV ×3 (06:10→23:53)
[2017-07-16] MEDS: IPRATRPIUM/ALBUTEROL 0.5/2.5MG 3 ML NEBU. NEB ×4 (07:16→19:20)
[2017-07-16] MEDS ORDERED: FUROSEMIDE 20 MG TABLET PO (09:00)
[2017-07-16] MEDS ORDERED: LIPASE/PROTEAS/AMYLAS 10/34/55 CAPSULE.DR. PO (09:00)
[2017-07-16] MEDS: NITROGLYCERIN SUBLINGUAL 0.4 MG BOTTLE OF 25. SL ×2 (09:09→13:25)
[2017-07-16] MEDS: ATENOLOL 25 MG TABLET. PO ×2 (09:11→23:35)
[2017-07-16] MEDS: LIPASE/PROTEAS/AMYLAS 10/34/55 CAPSULE.DR. PO ×3 (09:12→17:00)
[2017-07-16] MEDS: LACTOBACILLUS RHAMNOSUS GG 1 CAPSULE. PO ×2 (09:12→23:35)
[2017-07-16] MEDS: ISOSORBIDE MONONITRATE ER 30 MG TAB.ER.24H PO (09:12)
[2017-07-16] MEDS: APIXABAN 2.5 MG TABLET. PO ×2 (09:12→23:35)
[2017-07-16] MEDS: PANTOPRAZOLE 40 MG TABLET.DR. PO (09:12)
[2017-07-16] MEDS: POTASSIUM CHLORIDE 10 MEQ TABLET.ER. PO (09:13)
[2017-07-16] MEDS: FUROSEMIDE 100 MG/10 ML VIAL. IVP ×3 (09:15→23:37)
[2017-07-16] MEDS: fentaNYL 50MCG/HR PATCH 1 PATCH PATCH.TD72 TD (11:54)
[2017-07-16] MEDS: POTASSIUM CHLORIDE 20MEQ 50 ML IV ×3 (12:05→23:54)
[2017-07-16] MEDS: VANCOMYCIN PER PHARMACY MC (13:32)
[2017-07-16] MEDS: VANCOMYCIN 1 GM in IV 1/2 NORMAL SALINE 250 ML IV (15:00)
[2017-07-16 15:12] LABS: POTASSIUM 3.5 mmol/L (3.5-5.1)
[2017-07-16] MEDS: LIDOCAINE (700MG/PATCH) PATCH. TD (17:00)
[2017-07-16 23:11] LABS: MRSA BY PCR Positive (Negative)
[2017-07-16 23:11] LABS: C DIFF BY PCR Negative (Negative)
[2017-07-16] MEDS: TAMSULOSIN 0.4 MG CAP.ER.24H. PO (23:35)
[2017-07-17] MEDS: oxyCODONE/APAP 5/325 1 TAB TABLET PO ×4 (02:37→20:29)
[2017-07-17] MEDS: POTASSIUM CHLORIDE 20MEQ 50 ML IV (04:02)
[2017-07-17] MEDS: ONDANSETRON ODT 4 MG TAB.RAPDIS. PO (05:25)
[2017-07-17] MEDS: PANTOPRAZOLE 40 MG TABLET.DR. PO (05:27)
[2017-07-17] MEDS: PIPERACILLIN/TAZOBACTAM 3.375 GM in IV NORMAL SALINE 50ML 50 ML IV ×4 (05:28→23:52)
[2017-07-17] MEDS: ALBUMIN HUMAN 25% 100 ML IV ×2 (05:28→15:52)
[2017-07-17] MEDS: FUROSEMIDE 100 MG/10 ML VIAL. IVP ×2 (05:29→15:52)
[2017-07-17] MEDS: IPRATRPIUM/ALBUTEROL 0.5/2.5MG 3 ML NEBU. NEB ×4 (07:03→19:52)
[2017-07-17] MEDS: LIPASE/PROTEAS/AMYLAS 10/34/55 CAPSULE.DR. PO ×3 (07:53→17:15)
[2017-07-17] MEDS: APIXABAN 2.5 MG TABLET. PO ×2 (07:53→20:27)
[2017-07-17] MEDS: POTASSIUM CHLORIDE 10 MEQ TABLET.ER. PO (07:54)
[2017-07-17] MEDS: ISOSORBIDE MONONITRATE ER 30 MG TAB.ER.24H PO (07:54)
[2017-07-17] MEDS: LACTOBACILLUS RHAMNOSUS GG 1 CAPSULE. PO ×2 (07:54→20:28)
[2017-07-17] MEDS: ATENOLOL 25 MG TABLET. PO ×2 (07:55→23:53)
[2017-07-17] MEDS: LIDOCAINE (700MG/PATCH) PATCH. TD (07:55)
[2017-07-17] MEDS: FUROSEMIDE 40 MG/4 ML VIAL. IVP (09:00)
[2017-07-17] MEDS: POTASSIUM CHLORIDE 20 MEQ TABLET.ER. PO ×2 (11:44→20:28)
[2017-07-17 14:53] LABS: CREATININE 1.6 mg/dL (0.6-1.0)
[2017-07-17] MEDS: VANCOMYCIN PER PHARMACY MC ×2 (16:38)
[2017-07-17] MEDS: VANCOMYCIN 1 GM in IV 1/2 NORMAL SALINE 250 ML IV (17:10)
[2017-07-17] MEDS: TAMSULOSIN 0.4 MG CAP.ER.24H. PO (20:28)
[2017-07-18] MEDS: oxyCODONE/APAP 5/325 1 TAB TABLET PO ×4 (02:09→21:34)
[2017-07-18] MEDS: PIPERACILLIN/TAZOBACTAM 3.375 GM in IV NORMAL SALINE 50ML 50 ML IV ×3 (05:53→18:12)
[2017-07-18 06:44] LABS: ANION GAP 11 (6-14); BLOOD UREA NITROGEN 27 mg/dL (7-20); CALCIUM 8.9 mg/dL (8.5-10.1); CARBON DIOXIDE 31 mmol/L (21-32); CHLORIDE 99 mmol/L (98-107); CREATININE 1.6 mg/dL (0.6-1.0); GLUCOSE 98 mg/dL (70-99); POTASSIUM 3.7 mmol/L (3.5-5.1); SODIUM 141 mmol/L (136-145)
[2017-07-18] MEDS: IPRATRPIUM/ALBUTEROL 0.5/2.5MG 3 ML NEBU. NEB ×4 (07:23→19:41)
[2017-07-18] MEDS: POTASSIUM CHLORIDE 20 MEQ TABLET.ER. PO ×2 (08:52→21:33)
[2017-07-18] MEDS: LIPASE/PROTEAS/AMYLAS 10/34/55 CAPSULE.DR. PO ×3 (08:53→18:11)
[2017-07-18] MEDS: ATENOLOL 25 MG TABLET. PO ×2 (08:53→21:34)
[2017-07-18] MEDS: PANTOPRAZOLE 40 MG TABLET.DR. PO (08:53)
[2017-07-18] MEDS: APIXABAN 2.5 MG TABLET. PO ×2 (08:53→21:34)
[2017-07-18] MEDS: LACTOBACILLUS RHAMNOSUS GG 1 CAPSULE. PO ×2 (08:53→21:34)
[2017-07-18] MEDS: ISOSORBIDE MONONITRATE ER 30 MG TAB.ER.24H PO (08:54)
[2017-07-18] MEDS: LIDOCAINE (700MG/PATCH) PATCH. TD (08:54)
[2017-07-18] MEDS: ANTI-COAG MONITOR BY PHARMACY. MC (12:42)
[2017-07-18] MEDS: VANCOMYCIN PER PHARMACY MC (12:44)
[2017-07-18] MEDS: VANCOMYCIN 1 GM in IV 1/2 NORMAL SALINE 250 ML IV (16:01)
[2017-07-18] MEDS: TAMSULOSIN 0.4 MG CAP.ER.24H. PO (21:34)
[2017-07-19] MEDS: PIPERACILLIN/TAZOBACTAM 3.375 GM in IV NORMAL SALINE 50ML 50 ML IV ×5 (00:26→23:46)
[2017-07-19] MEDS: ONDANSETRON ODT 4 MG TAB.RAPDIS. PO (03:23)
[2017-07-19] MEDS: oxyCODONE/APAP 5/325 1 TAB TABLET PO ×4 (03:23→23:46)
[2017-07-19 04:43] LABS: ANION GAP 9 (6-14); BLOOD UREA NITROGEN 29 mg/dL (7-20); CALCIUM 8.6 mg/dL (8.5-10.1); CARBON DIOXIDE 28 mmol/L (21-32); CHLORIDE 102 mmol/L (98-107); CREATININE 1.8 mg/dL (0.6-1.0); GFR 27.1; GLUCOSE 97 mg/dL (70-99); SODIUM 139 mmol/L (136-145)
[2017-07-19] MEDS: IPRATRPIUM/ALBUTEROL 0.5/2.5MG 3 ML NEBU. NEB ×4 (07:40→19:30)
[2017-07-19] MEDS: LIDOCAINE (700MG/PATCH) PATCH. TD ×2 (09:00→09:07)
[2017-07-19] MEDS: fentaNYL 50MCG/HR PATCH 1 PATCH PATCH.TD72 TD (09:04)
[2017-07-19] MEDS: POTASSIUM CHLORIDE 20 MEQ TABLET.ER. PO ×2 (09:05→20:07)
[2017-07-19] MEDS: ATENOLOL 25 MG TABLET. PO ×2 (09:05→20:08)
[2017-07-19] MEDS: LIPASE/PROTEAS/AMYLAS 10/34/55 CAPSULE.DR. PO ×3 (09:05→17:15)
[2017-07-19] MEDS: APIXABAN 2.5 MG TABLET. PO ×2 (09:05→20:08)
[2017-07-19] MEDS: PANTOPRAZOLE 40 MG TABLET.DR. PO (09:06)
[2017-07-19] MEDS: ISOSORBIDE MONONITRATE ER 30 MG TAB.ER.24H PO (09:06)
[2017-07-19] MEDS: LACTOBACILLUS RHAMNOSUS GG 1 CAPSULE. PO ×2 (09:06→20:07)
[2017-07-19 14:41] LABS: VANC TR 18.2 mcg/mL (10.0-20.0)
[2017-07-19] MEDS: VANCOMYCIN PER PHARMACY MC (15:33)
[2017-07-19] MEDS: VANCOMYCIN 1 GM in IV 1/2 NORMAL SALINE 250 ML IV (17:15)
[2017-07-19] MEDS: TAMSULOSIN 0.4 MG CAP.ER.24H. PO (20:07)
[2017-07-20] MEDS: oxyCODONE/APAP 5/325 1 TAB TABLET PO ×3 (05:54→17:56)
[2017-07-20] MEDS: PIPERACILLIN/TAZOBACTAM 3.375 GM in IV NORMAL SALINE 50ML 50 ML IV ×3 (05:54→17:56)
[2017-07-20] MEDS: PANTOPRAZOLE 40 MG TABLET.DR. PO (05:55)
[2017-07-20] MEDS: IPRATRPIUM/ALBUTEROL 0.5/2.5MG 3 ML NEBU. NEB ×4 (06:59→19:05)
[2017-07-20 08:01] LABS: ADD MAN DIFF? NO
[2017-07-20 08:09] LABS: BASO % 1 % (0-3); EOS # 0.2 x10^3/uL (0.0-0.7); EOS % 3 % (0-3); HEMATOCRIT 25.7 % (36.0-47.0); HEMOGLOBIN 8.6 g/dL (12.0-15.5); LYMPH # 0.4 x10^3/uL (1.0-4.8); LYMPH % 9 % (24-48); MEAN CORPUSCULAR HEMOGLOBIN 33 pg (25-35); MEAN CORPUSCULAR HGB CONC 33 g/dL (31-37); MEAN CORPUSCULAR VOLUME 99 fL (79-100); MONO # 0.6 x10^3/uL (0.0-1.1); MONO % 11 % (0-9); NEUT # 3.8 x10^3uL (1.8-7.7); NEUT % 76 % (31-73); PLATELET COUNT 179 x10^3/uL (140-400); RED CELL DISTRIBUTION WIDTH 15.7 % (11.5-14.5)
[2017-07-20 08:32] LABS: ALBUMIN 2.8 g/dL (3.4-5.0); ALBUMIN/GLOBULIN RATIO 0.9 (1.0-1.7); ALK PHOS 93 U/L (46-116); ALT (SGPT) 14 U/L (14-59); ANION GAP 10 (6-14); AST (SGOT) 14 U/L (15-37); BLOOD UREA NITROGEN 22 mg/dL (7-20); BUN/CREATININE RATIO 16 (6-20); CALCIUM 8.5 mg/dL (8.5-10.1); CARBON DIOXIDE 25 mmol/L (21-32); CHLORIDE 105 mmol/L (98-107); CREATININE 1.4 mg/dL (0.6-1.0); GFR 36.2; GLUCOSE 99 mg/dL (70-99); POTASSIUM 3.8 mmol/L (3.5-5.1); SODIUM 140 mmol/L (136-145); TOTAL BILIRUBIN 0.9 mg/dL (0.2-1.0)
[2017-07-20] MEDS: VANCOMYCIN PER PHARMACY MC (09:06)
[2017-07-20] MEDS: ANTI-COAG MONITOR BY PHARMACY. MC (09:09)
[2017-07-20] MEDS: ONDANSETRON ODT 4 MG TAB.RAPDIS. PO (10:20)
[2017-07-20] MEDS: LIDOCAINE (700MG/PATCH) PATCH. TD (10:21)
[2017-07-20] MEDS: LACTOBACILLUS RHAMNOSUS GG 1 CAPSULE. PO ×2 (10:29→21:26)
[2017-07-20] MEDS: LIPASE/PROTEAS/AMYLAS 10/34/55 CAPSULE.DR. PO ×3 (10:29→16:36)
[2017-07-20] MEDS: POTASSIUM CHLORIDE 20 MEQ TABLET.ER. PO ×2 (10:29→21:25)
[2017-07-20] MEDS: APIXABAN 2.5 MG TABLET. PO ×2 (10:30→21:26)
[2017-07-20] MEDS: ATENOLOL 25 MG TABLET. PO ×2 (10:31→21:26)
[2017-07-20] MEDS: ISOSORBIDE MONONITRATE ER 30 MG TAB.ER.24H PO (10:31)
[2017-07-20] MEDS: fentaNYL 50MCG/HR PATCH 1 PATCH PATCH.TD72 TD (12:05)
[2017-07-20] MEDS: BENZONATATE 100 MG CAPSULE. PO ×2 (14:22→21:25)
[2017-07-20] MEDS: VANCOMYCIN 1 GM in IV 1/2 NORMAL SALINE 250 ML IV (14:23)
[2017-07-20] MEDS ORDERED: NITROGLYCERIN SUBLINGUAL 0.4 MG BOTTLE OF 25. SL ×2 (16:24→17:00)
[2017-07-20] MEDS: NITROGLYCERIN SUBLINGUAL 0.4 MG BOTTLE OF 25. SL ×3 (16:30→19:54)
[2017-07-20] MEDS: fentaNYL PF VIAL 100 MCG/2 ML VIAL IV (21:23)
[2017-07-20] MEDS: TAMSULOSIN 0.4 MG CAP.ER.24H. PO (21:25)
[2017-07-21] MEDS: PIPERACILLIN/TAZOBACTAM 3.375 GM in IV NORMAL SALINE 50ML 50 ML IV ×5 (00:02→23:50)
[2017-07-21] MEDS: fentaNYL PF VIAL 100 MCG/2 ML VIAL IV ×4 (02:42→23:53)
[2017-07-21] MEDS: ONDANSETRON ODT 4 MG TAB.RAPDIS. PO ×2 (02:42→18:40)
[2017-07-21] MEDS: oxyCODONE/APAP 5/325 1 TAB TABLET PO ×4 (06:03→18:04)
[2017-07-21] MEDS: IPRATRPIUM/ALBUTEROL 0.5/2.5MG 3 ML NEBU. NEB ×4 (06:57→20:07)
[2017-07-21] MEDS: LIPASE/PROTEAS/AMYLAS 10/34/55 CAPSULE.DR. PO ×3 (07:54→16:14)
[2017-07-21] MEDS: POTASSIUM CHLORIDE 20 MEQ TABLET.ER. PO ×2 (07:54→20:02)
[2017-07-21] MEDS: APIXABAN 2.5 MG TABLET. PO ×2 (07:54→20:02)
[2017-07-21] MEDS: BENZONATATE 100 MG CAPSULE. PO ×3 (07:54→20:09)
[2017-07-21] MEDS: PANTOPRAZOLE 40 MG TABLET.DR. PO (07:54)
[2017-07-21] MEDS: ATENOLOL 25 MG TABLET. PO ×2 (07:54→20:12)
[2017-07-21] MEDS: ISOSORBIDE MONONITRATE ER 30 MG TAB.ER.24H PO (07:55)
[2017-07-21] MEDS: LACTOBACILLUS RHAMNOSUS GG 1 CAPSULE. PO ×2 (07:55→20:03)
[2017-07-21] MEDS: LIDOCAINE (700MG/PATCH) PATCH. TD (07:56)
[2017-07-21] MEDS: VANCOMYCIN PER PHARMACY MC (10:01)
[2017-07-21] MEDS ORDERED: ALBUTEROL SULFATE 2.5 MG/3 ML NEBU. NEB (12:45)
[2017-07-21] MEDS: ANTI-COAG MONITOR BY PHARMACY. MC (14:07)
[2017-07-21] MEDS: VANCOMYCIN 1 GM in IV 1/2 NORMAL SALINE 250 ML IV (14:19)
[2017-07-21] MEDS: TAMSULOSIN 0.4 MG CAP.ER.24H. PO (20:03)
[2017-07-21] MEDS: ZOLPIDEM 5 MG TABLET. PO (20:03)
[2017-07-22] MEDS: oxyCODONE/APAP 5/325 1 TAB TABLET PO ×3 (03:00→17:50)
[2017-07-22 05:01] LABS: HEMATOCRIT 28.7 % (36.0-47.0); HEMOGLOBIN 9.4 g/dL (12.0-15.5); MEAN CORPUSCULAR HEMOGLOBIN 33 pg (25-35); MEAN CORPUSCULAR HGB CONC 33 g/dL (31-37); MEAN CORPUSCULAR VOLUME 101 fL (79-100); PLATELET COUNT 215 x10^3/uL (140-400); RED BLOOD COUNT 2.85 x10^6/uL (3.50-5.40); RED CELL DISTRIBUTION WIDTH 16.5 % (11.5-14.5); WHITE BLOOD COUNT 5.3 x10^3/uL (4.0-11.0)
[2017-07-22 05:36] LABS: ANION GAP 12 (6-14); BLOOD UREA NITROGEN 20 mg/dL (7-20); CARBON DIOXIDE 23 mmol/L (21-32); CHLORIDE 106 mmol/L (98-107); CREATININE 1.4 mg/dL (0.6-1.0); GFR 36.2; GLUCOSE 99 mg/dL (70-99); POTASSIUM 4.8 mmol/L (3.5-5.1); SODIUM 141 mmol/L (136-145)
[2017-07-22] MEDS: PIPERACILLIN/TAZOBACTAM 3.375 GM in IV NORMAL SALINE 50ML 50 ML IV ×3 (06:20→18:21)
[2017-07-22] MEDS: IPRATRPIUM/ALBUTEROL 0.5/2.5MG 3 ML NEBU. NEB ×4 (07:16→20:43)
[2017-07-22] MEDS: LIPASE/PROTEAS/AMYLAS 10/34/55 CAPSULE.DR. PO ×3 (08:00→17:00)
[2017-07-22] MEDS: BENZONATATE 100 MG CAPSULE. PO ×3 (11:31→21:00)
[2017-07-22] MEDS: APIXABAN 2.5 MG TABLET. PO ×2 (11:31→21:00)
[2017-07-22] MEDS: PANTOPRAZOLE 40 MG TABLET.DR. PO (11:31)
[2017-07-22] MEDS: ATENOLOL 25 MG TABLET. PO ×2 (11:32→20:59)
[2017-07-22] MEDS: POTASSIUM CHLORIDE 20 MEQ TABLET.ER. PO ×2 (11:33→21:00)
[2017-07-22] MEDS: ISOSORBIDE MONONITRATE ER 30 MG TAB.ER.24H PO (11:33)
[2017-07-22] MEDS: LACTOBACILLUS RHAMNOSUS GG 1 CAPSULE. PO ×2 (11:33→20:59)
[2017-07-22] MEDS: LIDOCAINE (700MG/PATCH) PATCH. TD (11:46)
[2017-07-22] MEDS: ANTI-COAG MONITOR BY PHARMACY. MC (13:26)
[2017-07-22] MEDS: VANCOMYCIN PER PHARMACY MC (13:28)
[2017-07-22] MEDS: FUROSEMIDE 40 MG TABLET. PO (15:00)
[2017-07-22] MEDS: VANCOMYCIN 1 GM in IV 1/2 NORMAL SALINE 250 ML IV (15:01)
[2017-07-22] MEDS: ZOLPIDEM 5 MG TABLET. PO (20:59)
[2017-07-22] MEDS: fentaNYL PF VIAL 100 MCG/2 ML VIAL IV (20:59)
[2017-07-22] MEDS: TAMSULOSIN 0.4 MG CAP.ER.24H. PO (21:00)
[2017-07-23] MEDS: oxyCODONE/APAP 5/325 1 TAB TABLET PO ×2 (00:35→09:26)
[2017-07-23] MEDS: PIPERACILLIN/TAZOBACTAM 3.375 GM in IV NORMAL SALINE 50ML 50 ML IV ×3 (00:35→12:02)
[2017-07-23] MEDS: fentaNYL PF VIAL 100 MCG/2 ML VIAL IV ×2 (03:39→13:28)
[2017-07-23] MEDS: ONDANSETRON ODT 4 MG TAB.RAPDIS. PO ×2 (03:39→09:27)
[2017-07-23] MEDS: IPRATRPIUM/ALBUTEROL 0.5/2.5MG 3 ML NEBU. NEB ×2 (07:14→11:50)
[2017-07-23] MEDS: FUROSEMIDE 40 MG/4 ML VIAL. IVP (09:00)
[2017-07-23] MEDS: LIDOCAINE (700MG/PATCH) PATCH. TD (09:25)
[2017-07-23] MEDS: fentaNYL 50MCG/HR PATCH 1 PATCH PATCH.TD72 TD (09:26)
[2017-07-23] MEDS: LACTOBACILLUS RHAMNOSUS GG 1 CAPSULE. PO (09:27)
[2017-07-23] MEDS: BENZONATATE 100 MG CAPSULE. PO (09:27)
[2017-07-23] MEDS: PANTOPRAZOLE 40 MG TABLET.DR. PO (09:28)
[2017-07-23] MEDS: FUROSEMIDE 40 MG TABLET. PO (09:28)
[2017-07-23] MEDS: POTASSIUM CHLORIDE 20 MEQ TABLET.ER. PO (09:28)
[2017-07-23] MEDS: APIXABAN 2.5 MG TABLET. PO (09:28)
[2017-07-23] MEDS: ATENOLOL 25 MG TABLET. PO (09:29)
[2017-07-23] MEDS: ISOSORBIDE MONONITRATE ER 30 MG TAB.ER.24H PO (09:30)
[2017-07-23] MEDS: LIPASE/PROTEAS/AMYLAS 10/34/55 CAPSULE.DR. PO ×2 (09:30→12:02)
[2017-07-23] MEDS ORDERED: NALOXONE 0.4 MG/ML VIAL. ×2 (14:28→15:00)
[2017-07-23 14:44] LABS: BASE EXCESS ABG -18 mmol/L (-3-3); HCO3 ABG 10 mmol/L (21-28); PCO2 ABG 33 mmHg (35-46); PO2 ABG 64 mmHg (65-108); SAT O2 ABG 81 % (92-99)
[2017-07-23] MEDS ORDERED: DEXTROSE 50% 25 GM / 50ML DISP.SYRIN. IV ×2 (14:45→15:00)
[2017-07-23 14:47] LABS: PH ABG 7.11 (7.35-7.45)
[2017-07-23 15:13] LABS: POC GLUCOSE 69 mg/dL (70-99)
== END 2017-07-23 15:00 | disposition expired | DRG 177 ==
LOC: ER 12:09 → 5 SOUTH 13:36
PROC: 5A09357 Assistance with Respiratory Ventilation, Less than 24 Consecutive Hours, Continuous Positive Airway Pressure (ICD-10-PCS; principal; 2017-07-15)
DX: J15.6 Pneumonia due to other Gram-negative bacteria (principal); J96.21 Acute and chronic respiratory failure with hypoxia; N17.9 Acute kidney failure, unspecified; J44.0 Chronic obstructive pulmonary disease with (acute) lower respiratory infection; I50.30 Unspecified diastolic (congestive) heart failure; I13.0 Hypertensive heart and chronic kidney disease with heart failure and stage 1 through stage 4 chronic kidney disease, or unspecified chronic kidney disease; G90.50 Complex regional pain syndrome I, unspecified; J15.9 Unspecified bacterial pneumonia; J18.9 Pneumonia, unspecified organism; I11.0 Hypertensive heart disease with heart failure; D64.9 Anemia, unspecified; E87.6 Hypokalemia; E78.5 Hyperlipidemia, unspecified; F17.200 Nicotine dependence, unspecified, uncomplicated; G47.00 Insomnia, unspecified; I25.10 Atherosclerotic heart disease of native coronary artery without angina pectoris; I50.9 Heart failure, unspecified; K52.831 Collagenous colitis; K52.9 Noninfective gastroenteritis and colitis, unspecified; K86.89 Other specified diseases of pancreas; M81.0 Age-related osteoporosis without current pathological fracture; N18.9 Chronic kidney disease, unspecified; Z80.0 Family history of malignant neoplasm of digestive organs; Z82.49 Family history of ischemic heart disease and other diseases of the circulatory system; Z83.71 Family history of colonic polyps; Z87.01 Personal history of pneumonia (recurrent); Z90.49 Acquired absence of other specified parts of digestive tract; Z90.710 Acquired absence of both cervix and uterus; Z95.5 Presence of coronary angioplasty implant and graft; Z96.659 Presence of unspecified artificial knee joint; Z99.81 Dependence on supplemental oxygen; F41.9 Anxiety disorder, unspecified; M54.9 Dorsalgia, unspecified
CPT/HCPCS: 36415; 36600; 71045; 71250; 80048; 80053; 80202; 82565; 82805; 82962; 83605; 83690; 84132; 84484; 85007; 85025; 85027; 87040; 87045; 87205; 87324; 87641; 87804; 87804-59; 93005; 94640; 94660; 94760; 96365; 96368; 96375; 97110-GP; 97116-GP; 97162-GP; 97166-GO; 97530-GO; 97535-GO; 99285; 99285-25; J1940; J2310; J2543; J3010; J3370; J3480; J7042; J7620; P9046; Q0162